=== PATIENT | female | born 1945 | race Caucasian/White ===

== ENCOUNTER → 2022-08-08 10:44 | Outpatient (CLI) | payer MEDICARE, SELFPAY ==
--- NOTE | ~2022-08-08 | XR_ITS ---
Clinical Indication: Cough PA and lateral views of the chest: Comparison: 04/08/2009 Findings: Calcified left upper lobe granuloma noted. The lungs are otherwise clear, without evidence of focal consolidation or pleural effusion. Cardiomediastinal silhouette is unremarkable, aside from cardiac valve replacement postsurgical changes. Bones and soft tissues are unremarkable. Impression: No significant/acute abnormality seen. Status post corrective surgery. Reviewed, dictated and finalized at location M. Impression: No significant/acute abnormality seen. Status post corrective surgery.
== END ==
PROVIDERS: PCP Internal Medicine; Visit Provider Nurse Practitioner
DX: R05.9 Cough, unspecified (principal); R06.02 Shortness of breath; R42 Dizziness and giddiness
CPT/HCPCS: 71046

== ENCOUNTER 2022-08-08 11:02 | Outpatient (CLI) | payer MEDICARE, SELFPAY ==
[2022-08-08 12:47] LABS: Basophils Absolute Auto 0.1 K/mm3 (0.0-0.1); Eosinophils Absolute Auto 0.6 K/mm3 (0-0.3); Eosinophils Percent Auto 4.1 % (0-4.4); Hematocrit 36.8 % (37.0-47.0); Hemoglobin 11.7 g/dL (12.0-15.0); Immature Granulocyte Absolute 0.26 K/mm3 (0.00-0.031); Immature Granulocyte Percent A 1.8 % (0-0.5); Lymphocytes Absolute Auto 2.27 K/mm3 (0.9-3.2); Lymphocytes Percent Auto 15.9 % (18.3-44.2); Mean Corpuscular HGB Conc 31.8 g/dl (32-36); Mean Corpuscular Hemoglobin 30.2 pg (26-34); Mean Corpuscular Volume 94.8 fl (80-100); Mean Platelet Volume 10.8 fl (7.4-10.4); Monocytes Absolute Auto 1.1 K/mm3 (0.1-0.6); Monocytes Percent Auto 7.8 % (2.6-8.5); Neutrophils Absolute Auto 9.9 K/mm3 (1.3-6.7); Neutrophils Percent Auto 69.4 % (45.5-73.1); Platelet Count Result 532 k/mm3 (150-375); Red Blood Count 3.88 M/mm3 (4.2-5.4); Red Cell Distribution Width 13.9 % (11.5-14.5); White Blood Count 14.3 K/mm3 (4.5-10.0)
[2022-08-08 12:52] LABS: Alanine Aminotransferase 26 U/L (6-35); Albumin Level 4.1 g/dL (3.5-5.1); Alkaline Phosphatase 53 U/L (38-126); Anion Gap 6 mmol/L (8-16); Aspartate Amino Transferase 39 U/L (14-36); Bilirubin,Total 0.8 mg/dL (0.2-1.3); Blood Urea Nitrogen 28 mg/dL (7-17); Calcium 9.3 mg/dL (8.4-10.2); Carbon Dioxide 33 mmol/L (22-30); Chloride 97 mmol/L (98-107); Estimated Glomerular Filt Rate 48; Glucose 137 mg/dL (65-110); Potassium 4.3 mmol/L (3.4-5.0); Sodium 136 mmol/L (137-145)
== END 2022-08-08 11:03 | disposition home or self-care (01) ==
LOC: ANHPT 11:05 → ANHGOSHLAB 11:07
PROVIDERS: Nurse Practitioner; PCP Internal Medicine; Visit Provider Internal Medicine
DX: R05.9 Cough, unspecified (principal); R06.02 Shortness of breath
CPT/HCPCS: 36415; 80053; 85025

== ENCOUNTER 2022-08-10 14:54 | Emergency (ER) | payer MEDICARE, SELFPAY ==
[2022-08-10] VITALS (13 sets, daily range): BP systolic 124–146; BP diastolic 60–72; PULSE 60–98; RESP 16–28; TEMP 36.6; O2SAT 90–99
--- NOTE | ~2022-08-10 | XR_ITS ---
EXAMINATION: XR chest 1V portable Exam Date/Time: 08/10/2022 15:20 CDT HISTORY: low o2 Comparison: 08/08/2022. RESULT: Lines, tubes, and devices: Valve replacement. Multiple fractured sternotomy wires, remain in stable position. Cholecystectomy clips. Lungs and pleura: Calcified left upper lung granuloma. Slightly low volumes. Mild scattered intersti tial opacities. No focal consolidation. Cardiomediastinal silhouette: Stable. Other: No acute osseous or upper abdominal finding. IMPRESSION: Low volumes with crowding. Mild interstitial edema. Reviewed, dictated and finalized at location K.
--- NOTE | ~2022-08-10 | CT_ITS ---
EXAMINATION:CT diagnostic chest w con DATE: 08/10/2022 16:42 INDICATION: Cough and congestion. Pneumonia. TECHNIQUE: Computed tomography (CT) of the chest was performed with 75 mL Omnipaque 350 intravenous c ontrast. Automated exposure control and iterative reconstruction technique were employed. The dose-le ngth product (DLP) was 544.70 mGy-cm. COMPARISON: Chest single view 08/10/2022 FINDINGS: There is mild scarring paraspinal right lower lobe. There are mild airspace and groundglass opacities in posterior segment right upper lobe. There are centrilobular nodules and [place]bud opa cities in the lower lobes. Calcified left lung nodules and calcified left hilar lymph nodes are consi stent with old granulomatous disease. There is mild bronchiectasis in right middle lobe. No pleural e ffusion. The heart size is normal. There are changes of aortic valve replacement. No pericardial effu emmy. The central pulmonary arteries are enlarged, consistent with pulmonary arterial hypertension. T here are changes of cholecystectomy. There are bridging endplate osteophytes at multiple levels in th e spine, consistent with diffuse idiopathic skeletal hyperostosis (DISH). There is moderate thoracic spondylosis. IMPRESSION: 1. Mild pneumonia involving the lower lobes and right upper lobe. Reviewed, dictated and finalized at location A.
--- NOTE | ~2022-08-10 | CT_ITS ---
EXAMINATION: CT brain wo con DATE: 08/10/2022 15:52 INDICATION: Dizziness TECHNIQUE: Computed tomography (CT) of the head was performed without intravenous contrast. Sagittal and coronal reconstructions were performed. The mA was adjusted according to patient size. Iterative reconstruction technique was employed. The dose-length product was 605.33 mGy-cm. COMPARISON: None FINDINGS: Small region of encephalomalacia along a gyrus in the anterior right frontal lobe consistent with seq uela of chronic infarct. No acute intracranial hemorrhage, acute infarction or abnormal extra axial f luid collection. Ventricles are normal and symmetric. No mass/mass effect. Minimal right mastoid effu emmy. The orbits and mastoid air cells are normal. Mild mucosal thickening in the right sphenoid and bilateral maxillary sinuses with more prominent mucosal thickening with near complete opacification o f the left maxillary sinus. IMPRESSION: 1. Small old right frontal lobe infarct. No acute intracranial process. 2. Sinus disease. Reviewed, dictated and finalized at location L.
--- NOTE | 2022-08-10 15:09 | ECG_ITS ---
Measurements Intervals [place] Rate: 88 P: 16 FL: 145 QRS: -27 QRSD: 146 T: 34 QT: 374 QTc: 453 Interpretive Statements SINUS RHYTHM RIGHT BUNDLE BRANCH BLOCK BASELINE ARTIFACT- I, III, AVR, AVL, AVF ABNORMAL ECG NO PREVIOUS ECG AVAILABLE FOR COMPARISON Electronically Signed On 08-10-2022 15:40:42 CDT by Rasheed Guerra D.O.
[2022-08-10 15:37] LABS: Basophils Absolute Auto 0.1 K/mm3 (0.0-0.1); Basophils Percent Auto 0.7 % (0.2-1.2); Eosinophils Absolute Auto 0.5 K/mm3 (0-0.3); Eosinophils Percent Auto 3.6 % (0-4.4); Hemoglobin 11.7 g/dL (12.0-15.0); Immature Granulocyte Percent A 0.7 % (0-0.5); Lymphocytes Absolute Auto 2.23 K/mm3 (0.9-3.2); Lymphocytes Percent Auto 16.6 % (18.3-44.2); Mean Corpuscular HGB Conc 32.5 g/dl (32-36); Mean Corpuscular Hemoglobin 30.2 pg (26-34); Mean Platelet Volume 10.3 fl (7.4-10.4); Monocytes Absolute Auto 1.1 K/mm3 (0.1-0.6); Monocytes Percent Auto 8.4 % (2.6-8.5); Neutrophils Absolute Auto 9.4 K/mm3 (1.3-6.7); Platelet Count Result 589 k/mm3 (150-375); Red Blood Count 3.87 M/mm3 (4.2-5.4); Red Cell Distribution Width 13.7 % (11.5-14.5); White Blood Count 13.5 K/mm3 (4.5-10.0)
[2022-08-10 15:42] LABS: INR 3.4; Prothrombin Time 37.7 Seconds (11.1-14.7)
[2022-08-10 15:44] LABS: Partial Thromboplastin Time 83.9 SECONDS (22.3-36.8)
[2022-08-10 15:59] LABS: Alanine Aminotransferase 27 U/L (6-35); Albumin Level 4.2 g/dL (3.5-5.1); Alkaline Phosphatase 45 U/L (38-126); Anion Gap 7 mmol/L (8-16); Aspartate Amino Transferase 38 U/L (14-36); Blood Urea Nitrogen 33 mg/dL (7-17); Calcium 9.4 mg/dL (8.4-10.2); Carbon Dioxide 32 mmol/L (22-30); Chloride 96 mmol/L (98-107); Estimated Glomerular Filt Rate 48; Glucose 109 mg/dL (65-110); Potassium 4.3 mmol/L (3.4-5.0); Sodium 135 mmol/L (137-145)
--- NOTE | 2022-08-10 16:10 | PC.NURSE ---
Dr. Alfredo at bedside to assess pt.
--- NOTE | 2022-08-10 16:32 | ED.DIZZY ---
HPI - Dizziness General Chief Complaint: Dizziness Stated Complaint: DIZZINESS Time Seen by Provider: 08/10/22 15:41 History of Present Illness HPI Narrative: 76-year-old female presented to the emergency department for evaluation of dizziness which she describes as feeling drunk when ambulating. Patient reports over the course of the last week she has had these symptoms. Patient did start antibiotics for a suspected pneumonia approximately 3 days ago. Patient denies any falls or injuries. Patient denies any associated nausea vomiting or diarrhea. Patient does report increased cough and congestion. Patient did have follow-up with her primary care physician today and was told that she had worsening kidney function. Patient was also concerned because she had an abnormal pulse ox while at the primary care physician. Upon arrival to the ED patient's pulse ox is within normal limits Related Data Home Medications Medication Instructions Recorded Confirmed aspirin 81 mg tablet,delayed 81 mg PO DAILY 02/16/21 08/08/22 release (Adult Low Dose Aspirin) Allergies Allergy/AdvReac Type Severity Reaction Status Date / Time No Known Allergies Allergy Mild Verified 08/10/22 14:54 Review of Systems Review of Systems: All systems reviewed & are unremarkable except as noted in HPI and below PMFSH Past Medical History Medical History (Updated 08/11/22 @ 14:08 by Sidney Alfredo MD) Carotid artery stenosis Measles Mixed hyperlipidemia Morbid obesity with BMI of 45.0-49.9, adult Obesity Surgical History Surgical History Hx of knee surgery bilateral 2019 Mechanical heart valve present 09/30/18 Family History Family History Father Acute myocardial infarction Mother Patient's mother is in good health Social History Social History Smoking status: Never smoker Alcohol intake: never Lack of Transportation: No Lack of Food: Never True Current Housing: I Have Housing Concerned About Future Housing: No Difficulty Paying Gas/Electric Bills: No Difficulty Paying for Meds: No Currently Unemployed: No Education: High School Diploma/GED Difficulty w/ Childcare or Family Care: No Exam Narrative: APPEARANCE: Well appearing, no pain, no distress, well-nourished. HEAD: normocephalic, atraumatic. EYES: PERRLA/EOMI, conjunctivae clear. NOSE: Normal no drainage NECK: Supple. No adenopathy, no masses. RESPIRATORY: Airway patent, respirations nonlabored. Clear to auscultation bilaterally, no rales, rhonchi, wheezing. CARDIOVASCULAR: Regular rate and rhythm without murmurs rubs or gallops. ABDOMINAL: Soft, nontender, nondistended, normal bowel sounds MUSCULOSKELETAL: Moves all extremities. Strength/ROM intact, No edema, No calf tenderness. NEURO: Alert. Cranial nerves II through XII intact. Grossly intact SKIN: Warm, dry. Normal Color Course Course Emergency Course: 76-year-old female presented to the emergency department for evaluation of dizziness. Patient was afebrile but does have a leukocytosis of 13.5. Patient's hemoglobin is stable. Patient's CMP is similar to her baseline with no significant WILFREDO. Chest x-ray did show low volume with crowding. CT of the chest was ordered and did show evidence of a pneumonia. Patient is currently taking antibiotics for the pneumonia. After rehydration and meclizine patient states that her dizziness is resolved. Patient was encouraged of close follow-up with her primary care physician. All questions Patient does feel improved with the meclizine. Vital Signs Vital signs: Vital Signs Temperature 97.9 F 08/10/22 14:58 Pulse Rate 88 08/10/22 14:58 Respiratory Rate 18 08/10/22 14:58 Blood Pressure 138/67 08/10/22 14:58 Pulse Oximetry 94 08/10/22 14:58 Oxygen Delivery Room Air
[2022-08-10] MEDS: SODIUM CHLORIDE 0.9% IV 1,000 ML 999 ML IV CONT (17:17)
--- NOTE | 2022-08-10 17:41 | PC.NURSE ---
Ambulatory pulse ox completed. Patient sating at 95% while standing. While walking O2 saturation remained between 93 and 95%. Patient was noted to have more labored breathing while walking but did not become hypoxic. Work of breathing returned to normal when back at rest. made aware.
[2022-08-10] MEDS: MECLIZINE HCL 25 MG TABLET PO (17:48)
--- NOTE | 2022-08-10 19:20 | PC.NURSE ---
Patient report given to DIVINE Egan. All questions answered and care of patient transferred.
== END 2022-08-10 20:17 | disposition home or self-care (01) ==
PROVIDERS: Emergency Provider Emergency Medicine; PCP Internal Medicine
DX: J18.9 Pneumonia, unspecified organism (principal); R42 Dizziness and giddiness; I65.29 Occlusion and stenosis of unspecified carotid artery; E78.2 Mixed hyperlipidemia; E66.01 Morbid (severe) obesity due to excess calories; Z68.41 Body mass index [BMI] 40.0-44.9, adult; Z95.2 Presence of prosthetic heart valve; J32.9 Chronic sinusitis, unspecified; I45.10 Unspecified right bundle-branch block
CPT/HCPCS: 36415; 70450; 71045; 71260; 80053; 85025; 85610; 85730; 93005; 96360; 99284; A9270; J7030; Q9967

== ENCOUNTER → 2022-12-13 12:32 | Outpatient (CLI) | payer MEDICARE, SELFPAY ==
--- NOTE | ~2022-12-13 | XR_ITS ---
EXAMINATION: XR knee LT 3V DATE: 12/13/2022 12:50 INDICATION: Left knee pain TECHNIQUE: Three views of the left knee were obtained. COMPARISON: None. FINDINGS: Alignment is normal. There are changes of knee arthroplasty. There is no joint effusion. T here is prepatellar soft tissue swelling of the knee. IMPRESSION: 1. Prepatellar soft tissue swelling of the knee without acute osseous abnormality. Reviewed, dictated and finalized at location F. IMPRESSION: 1. Prepatellar soft tissue swelling of the knee without acute osseous abnormali ty.
== END ==
PROVIDERS: PCP Clinical Nurse Specialist; Visit Provider Clinical Nurse Specialist
DX: M25.562 Pain in left knee (principal); M79.89 Other specified soft tissue disorders
CPT/HCPCS: 73562

== ENCOUNTER 2022-12-25 10:28 | Emergency (ER) | payer MEDICARE, SELFPAY ==
--- NOTE | ~2022-12-25 | US_ITS ---
EXAMINATION: US venous doppler UE DATE: 12/25/2022 12:32 INDICATION: Recent fall 2 weeks ago. Left arm swelling. TECHNIQUE: Jiménez scale images with and without compression and Doppler images of the left upper extrem ity veins were obtained. COMPARISON: None. FINDINGS: The left internal jugular vein, subclavian vein, axillary vein, brachial veins, basilic vein, cephali c vein, radial vein, and ulnar vein are patent. In the anterior left mid forearm there is a small 4 m m cyst, likely of no clinical significance. IMPRESSION: 1. Patent left upper extremity veins. No evidence of deep venous thrombosis. Reviewed, dictated and finalized at location A.
[2022-12-25 10:34] VITALS: BP 154/58; PULSE 58; RESP 15; TEMP 36.6; O2SAT 96
--- NOTE | 2022-12-25 12:39 | ED.UPPEXIN ---
HPI - Extremity Injury (Upper) General Chief Complaint: Fall Stated Complaint: Fall left arm pain; left knee Time Seen by Provider: 12/25/22 11:17 History of Present Illness HPI narrative: This is a 77-year-old female, with past history of valve replacement on Coumadin, who presents emergency department complaining of left arm mass and swelling. The patient states approximately 2 weeks ago, she fell striking the left arm and left knee, resulting in a large bruise over the arm. She states the bruise appears to be improving, however she has multiple knots in the left arm that are concerning to her for blood clot. This is associated with 1-2/10 dull ache. She has no other complaints at this time. Related Data Home Medications Medication Instructions Recorded Confirmed aspirin 81 mg tablet,delayed 81 mg PO DAILY 02/16/21 12/14/22 release (Adult Low Dose Aspirin) Allergies Allergy/AdvReac Type Severity Reaction Status Date / Time No Known Allergies Allergy Mild Verified 12/25/22 10:43 Review of Systems Review of Systems: CONSTITUTIONAL: Denies fever, chills, or sweats. CARDIOVASCULAR: Denies chest pain, palpitations, or edema. RESPIRATORY: Denies cough or dyspnea. GASTROINTESTINAL: Denies abdominal pain, nausea, vomiting, or diarrhea. GENITOURINARY: Denies dysuria or hematuria. SKIN: Denies rash or itching. MUSCULOSKELETAL: Left arm bruising and swelling denies back pain, joint pain, or myalgia. NEUROLOGIC: Denies headache, numbness, dizziness, or weakness. PSYCHIATRIC: Denies anxiety or depression. [facility] Past Medical History Medical History Carotid artery stenosis Hx of stroke without residual deficits Found on head CT 2022 Measles Mixed hyperlipidemia Morbid obesity with BMI of 45.0-49.9, adult Obesity Surgical History Surgical History Hx of knee surgery bilateral 2019 Mechanical heart valve present 09/30/18 Family History Family History Father Acute myocardial infarction Mother Patient's mother is in good health Social History Social History Smoking status: Never smoker Alcohol intake: never Exam Narrative: GENERAL: Well-developed, well-nourished, and in no acute distress. HEAD: Normocephalic, atraumatic. EYES: PERRLA and EOMI. CHEST: Clear to auscultation. No respiratory distress. No wheezes rales or rhonchi HEART: Regular rate and rhythm. No murmur heard. Normal peripheral pulses. ABDOMEN: Soft, nontender, nondistended, normal active bowel sounds. EXTREMITIES: Palpable, mobile nodules are noted in the anterior aspect of the left forearm, extending from the elbow approximately 10 cm. There is no overlying erythema or induration. Normal range of motion. No edema. SKIN: Warm, dry, no rash. NEURO: Alert and oriented x3. Moving all 4 limbs purposefully. PSYCH: Normal mood and affect. Course Course Emergency Course: 12:42 - Upper extremity US not concerning for DVT. I suspect the masses are evolving hematoma. Will discharge with recommendation follow-up with her primary care doctor. Discussed return and emergency precautions including signs/symptoms of DVT and respiratory distress. The patient voiced understanding and is comfortable with the plan. All questions answered to her satisfaction. Vital Signs Vital signs: Vital Signs Temperature 97.8 F 12/25/22 10:34 Pulse Rate 58 L 12/25/22 10:34 Respiratory Rate 15 12/25/22 10:34 Blood Pressure 154/58 H 12/25/22 10:34 Pulse Oximetry 96 12/25/22 10:34 Oxygen Delivery Room Air 12/25/22 10:34 Temperature 97.8 F 12/25/22 10:34 Pulse Rate 58 L 12/25/22 10:34 Respiratory Rate 15 12/25/22 10:34 Blood Pressure 154/58 H 12/25/22 10:34 Pulse Oximetry 96 12/25/22 10:34 O
== END 2022-12-25 12:49 | disposition home or self-care (01) ==
PROVIDERS: Emergency Provider Preventive Medicine Aerospace Medicine; PCP Clinical Nurse Specialist
DX: S50.12XA Contusion of left forearm, initial encounter (principal); I65.29 Occlusion and stenosis of unspecified carotid artery; E78.2 Mixed hyperlipidemia; E66.01 Morbid (severe) obesity due to excess calories; Z68.41 Body mass index [BMI] 40.0-44.9, adult; Z95.2 Presence of prosthetic heart valve; Z86.73 Personal history of transient ischemic attack (TIA), and cerebral infarction without residual deficits; Z79.82 Long term (current) use of aspirin; Z79.01 Long term (current) use of anticoagulants; W19.XXXA Unspecified fall, initial encounter
CPT/HCPCS: 93971; 99284

== ENCOUNTER 2024-07-11 10:45 | Outpatient (CLI) | payer MEDICARE, SELFPAY ==
--- NOTE | ~2024-07-11 | XR_ITS ---
AP and oblique views of the right ribs, and PA chest radiograph Clinical History: Pain Findings: No rib fracture is seen. Osseous alignment is anatomic. Calcified left lung granulomas are present. Lungs are of otherwise clear, without focal consolidation or pleural effusion. Cardiomediast inal contour is minimally prominent, status post interval placement. Soft tissues are unremarkable. Impression: No rib fracture is seen. No significant pulmonary abnormality. Reviewed, dictated and finalized at location . Impression: No rib fracture is seen. No significant pulmonary abnormality.
== END 2024-07-11 10:46 | disposition home or self-care (01) ==
LOC: GOSHIMG 10:45
PROVIDERS: PCP Clinical Nurse Specialist; Visit Provider Clinical Nurse Specialist
DX: R07.81 Pleurodynia (principal)
CPT/HCPCS: 71101

== ENCOUNTER 2024-07-13 12:46 | Emergency (ER) | payer MEDICARE, SELFPAY ==
--- NOTE | ~2024-07-13 | CT_ITS ---
CLINICAL INDICATION: Erythematous, blistering rash to the right thigh and right anterior lower abdomi nal wall. COMPARISON: None. TECHNIQUE: Multiple contiguous axial images of the abdomen and pelvis were performed without the admi nistration of intravenous contrast The dose-length product (DLP) was 1243.28 mGy-cm. Automated exposure control and iterative reconstruction technique were employed. FINDINGS/OBSERVATIONS: Visualized lower thorax: The bilateral lung bases are clear. The heart is enlarged, without pericardial effusion. Small hiatal hernia is present. Liver: The liver demonstrates homogeneous attenuation and is not enlarged. Gallbladder and biliary system: The gallbladder is surgically absent. Pancreas: Limited evaluation of the pancreas secondary to the lack of intravenous contrast. Spleen: The spleen demonstrates homogeneous attenuation and is not enlarged. Kidneys: The bilateral kidneys are unremarkable, without hydronephrosis or renal calculi. Adrenal glands: Unremarkable. Gastrointestinal tract: Colonic diverticulosis without surrounding inflammatory change. Appendix: The air-filled appendix is of normal caliber (axial series, images 97 through 104). Vasculature: Unremarkable. Lymph nodes: Limited evaluation without intravenous contrast. Pelvic structures: The bladder is only minimally distended, and otherwise unremarkable. The uterus is anteverted and anteflexed, and contains multiple calcifications, likely secondary to pr ior fibroid disease Body wall and musculoskeletal: Induration of the superficial soft tissues, consistent with patient's presenting complaints. Age-appropriate degenerative disease within the lumbar spine. IMPRESSION: No acute intra-abdominal pathology, as detailed above. Reviewed, dictated and finalized at location A.
--- OUTSIDE RECORDS SUMMARY | 2024-07-13 12:49 | XMS_ITS | Encounter Summary ---
Author Organization [facility] Address [address] [place] [address] Care Team Providers Care Tools Administrator Name Role Phone Frankie Holloway MD Unavailable Juan Miguel Brown DO Primary Care Provider Encounter Details Date Type Department Care Team (Late st Contact Info) Description 01/28/2024 Lab Requisition [facility] - DermPath Lab [address] [place] [id number] Dilia Melchor MD [address] [facility] [address] [place] [address] Social History Tobacco Use Types Packs/Day Years Used Date Smoking Tobacco: Never Smokeless Tobacco: Never Alcohol Use Standard Drinks/Week Comments Yes 0 (1 standard drink = 0.6 oz pur e alcohol) rare Sex and Gender Information Value Date Recorded Sex Assigned at Not on file Gender Identity Not on file Sexual Orientation Not on file documented as of this encounter Functional Status Functional Status Response Date of Assess ment Is person deaf or have serious hearing difficult y? No 12/14/2018 Is person blind or have serious difficulty seein g? No 12/14/2018 Does person have serious dif ficulty walking/climbing stairs? No 12/14/2018 Does person have difficulty dressing/bathing? No 12/14/2018 Does person have difficulty doing errands alone? No 12/14/2018 Cognitive Status Response Date of Assessm ent Does person have difficulty concentrating/remembering/making decisions? No 12/14/2018 documented as of this encounter Plan of Treatment Not on file documented as of this encounter Procedures Procedure Name Priority Date/Time Associated Diagnosis Comments DERMATOPATHOLOGY Routine 01/28/2024 10:4 8 AM CDT documented in this encounter Results * DERMATOPATHOLOGY (01/28/2024 10:48 AM CDT) Case Report Dermatopathology Report Case: [id number] Authorizing Provider: Dilia Melchor MD Collected: 01/28/2024 10:48 AM Ordering Location: [facility] - Received: 01/28/2024 04:51 PM DermPath Lab Pathologist: Cathy Mora MD Specimen: Skin, left cheek 12:47 PM CDT DERMATOPATHOLOGY LABORATORY Final Diagnosis Specimen A. 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 The specimen consists of a shave biopsy measuring 5x5x1 mm. Jar 0. 12:47 PM CDT DERMATOPATHOLOGY LABORATORY Microscopic Description Specimen A. SKIN, left cheek: The epidermis shows parakeratosis, full thickness disorderly maturation of keratinocytes, mitoses at different levels, and dyskeratotic cells. 12:47 PM CDT DERMATOPATHOLOGY LABORATORY Disclaimer An external and internal positive and negative controls are appropriate for the histochemical, immunohistochemical and immunofluorescence stain(s) in this case (if any), except where stated explicitly. The performance characteristics of the stain(s) cited in this report were developed and its performance characteristic determined by the Dermatopathology Laboratory at [facility], directed by Dr. Milly Wyatt. These tests need not be, and therefore are not, approved by the [place] Food and Drug Administration. The tests are used for clinical purposes. Billing Codes Specimen Charges Stain Charges 38140 1 4 12:47 PM CDT DERMATOPATHOLOGY LABORATORY Embedded Images 12:47 PM CDT DERMATOPATHOLOGY LABORATORY Pathology/Cytolo gy TISSUE SPECIMEN FROM SKIN / Unknown 01/28/2024 10:48 AM CDT 01/28/2024 4:51 PM CDT Dilia Melchor MD LAB - PATHOLOGY/CYTO LOGY ORDERABLES DERMATOPATHOLOGY LABORATORY [facility] - Department of Dermatology [address] [phone] documented in this encounter Visit Diagnoses Not on filedocumented in this encounter Care Teams Tools Administrator Relationship Specialty [place] [id number] [address] [place] [id number] PCP - General Internal Medicine 01/31/13 [place] [id number] [place] [address] Orthopedic Surgery 01/31/13 documented as of this encounter
--- OUTSIDE RECORDS SUMMARY | 2024-07-13 12:49 | XMS_ITS | Clinical Summary ---
Author Organization [facility] Address [address] [place] [address] Care Team Providers Care Cover Cutter Machine Name Role Phone Frankie Holloway MD Unavailable Juan Miguel Brown DO Primary Care Provider [phone] Source Comments [facility],non-owned Affiliates and Associated Physician Practices is amultiple site organization consisting of ambulatory clinics and hospital sitesin [place], [place], [place] and [place]. This disclosure is being madepursuant to the Care Everywhere program and may not contain all information available regarding this patient. Last updated 17.[facility] Allergies No known active allergies Medications * Be aware that medications may not be up to date on this document. Alwaysverify current medications with the patient. Medication Sig Dispensed Refills Start Date End Date Status atorvastatin (LIPITOR) 80 MG tablet Take 80 mg by mouth once daily Active fenofibrate (TRICOR) 145 MG tablet Take 145 mg by mouth once daily. Active ezetimibe (ZETIA) 10 MG tablet Take 10 mg by mouth once daily. Active amLODIPine (NORVASC) 5 MG tablet Take 7.5 mg by mouth once daily Active furosemide (LASIX) 40 MG tablet Take 40 mg by mouth once daily. Active Potassium Chloride (KLOR-CON 10 PO) Take by mouth once daily Active metoprolol tartrate IR (LOPRESSOR) 25 MG tablet Take 12.5 mg by mouth 2 times daily Active Multiple Vitamins-Minerals (MULTIVITAMIN & MINERAL PO) Take by mouth once daily Active irbesartan (AVAPRO) 75 MG tablet Take 75 mg by mouth once daily Active warfarin (COUMADIN) 2.5 MG tablet Take 2.5 mg by mouth once daily Active hydroCHLOROthiazide (HYDRODIURIL) 25 MG tablet Take 1 tablet by mouth once daily 07/15/2018 Active ASPIRIN 81 PO Take 81 mg by mouth once daily Active acetaminophen (TYLENOL) 500 MG tablet Take 1,000 mg by mouth every 4 hours as needed for Fever or Pain Maximum allowable Acetaminophen amount = 4 Grams (4000 mg) / 24 hours. Active Active Problems Problem Noted Date Diagnosed Date Status post total left knee replacement 08/24/19 Primary osteoarthritis of both knees 05/13/2015 Osteoarthrosis involving lower leg 01/31/2013 Overview (07/03/2015): 2015 IMO Updt Social History Tobacco Use Types Packs/Day Years Used Date Smoking Tobacco: Never Smokeless Tobacco: Never Alcohol Use Standard Drinks/Week Comments Yes 0 (1 standard drink = 0.6 oz pur e alcohol) rare Sex and Gender Information Value Date Recorded Sex Assigned at Not on file Gender Identity Not on file Sexual Orientation Not on file Last Filed Vital Signs Vital Sign Reading Time Taken Comments Blood Pressure 157/81 12/14/2018 8:20 AM CDT Pulse 54 12/14/2018 8:20 AM CDT Temperature 36.4 C (97.5 F) 12/14/2018 8:20 AM CDT Respiratory Rate 16 12/14/2018 8:20 AM CDT Oxygen Saturation 100% 12/14/2018 8:20 AM CDT Inhaled Oxygen Concentration - - Weight 103.1 kg (227 lb 6.4 oz) 12/12/2018 9:25 AM CDT Height 148.6 cm (4' 10.5 ) 12/12/2018 9:25 AM CD T Body Mass Index 46.72 12/12/2018 9:25 AM CDT Plan of Treatment Health Maintenance Due Date Last Done Comments BONE DENSITY TESTING 1945 HEPATITIS C SCREENING 10/11/1964 DTAP/TDAP/TD VACCINES (1 - Tdap) 1965 PNEUMOCOCCAL VACCINE 50+ (1 of 1 - PCV) 1996 ZOSTER VACCINE (1 of 2) 1996 Respiratory Syncytial Virus (RSV) Vaccine Pt: or over 60 yrs (1 - 1-dose 75+ series) 2021 COVID-19 VACCINE ( - 2023-2 5 season) 2023 DEPRESSION SCREENING 04/09/2024 MEDICARE AWV CALENDAR YEAR 2024 INFLUENZA VACCINE (Season Ended) 2024 HEPATITIS B VACCINE Aged Out No longe r eligible based on patient's age to complete this topic HIB VACCINE Aged Out No longer eligi ble based on patient's age to complete this topic HPV VACCINE Aged Out No longer eligi ble based on patient's age to complete this topic MENINGOCOCCAL (Group B) VACC INE SHARED DECISION-MAKING Aged Out No longer eligibl e based on patient's age to complete this topic MENINGOCOCCAL GROUPS A/C/Y/W VACCINE Aged Out No longer eligible b ased on patient's age to complete this topic Medical Devices Implanted Type Area Family Preservation Caseworker Device Identifier Shelf Expiration Date Model / Serial / Lot Nabil Bone [place]-G Hv 40/20 Implanted:Qty: 1 on 07/11/2018 by Frankie Holloway MD at [facility] Left: Knee [employer] 09/11/2019 600-15-100 / / [id number] Cmpnt Fem Kn Lt Cr Cmnt Prm Vngrd Intlk Implanted:Qty: 1 on 07/11/2018 by Frankie Holloway MD at [facility] Left: Knee [employer]au [employer] 03/12/2025 [id number] / / [id number] Tray Tib 63mm Kn Cocr I Beam Implanted:Qty: 1 on 07/11/2018 by Frankie Holloway MD at [facility] Left: Knee [employer]au [employer] 02/11/2028 [id number] / / [id number] Brng [id number] Vngrd Arcm Kn Ant Stab Implanted:Qty: 1 on 07/11/2018 by Frankie Holloway MD at [facility] Left: Knee [employer]au [employer] 04/12/2022 [id number] / / [id number] Cmnt Bone Cblt 40gm Hvisc Strl Implanted:Qty: 1 on 12/12/2018 by Frankie Holloway MD at [facility] Right: Knee [employer] 04/13/2020 600-15-000 / / [id number] Cmpnt Fem Kn Rt Cr Cmnt Prm Vngrd Intlk Implanted:Qty: 1 on 12/12/2018 by Frankie Holloway MD at [facility] Right: Knee [employer] 05/14/2028 [id number] / / [id number] Tray Tib 63mm Kn Cocr I Beam Implanted:Qty: 1 on 12/12/2018 by Frankie Holloway MD at [facility] Right: Knee [employer] 04/13/2028 [id number] / / [id number] Cmpnt Ptlr 28mm 1 Pg Wire Ascnt Arcm Kn Implanted:Qty: 1 on 12/12/2018 by Frankie Holloway MD at [facility] Right: Knee [employer]ua [employer] 11/12/2023 [id number] / / [id number] Brng [id number] Vngrd Arcm Kn Ant Stab Implanted:Qty: 1 on 12/12/2018 by Frankie oHlloway MD at [facility] Right: Knee [employer] 01/11/2022 [id number] / / [id number] Advance Directives * Full Code (Latest Code Status on File) Date Activated Date Inactivated Comments 12/12/2018 5:20 PM 12/14/2018 3:21 PM * Full Code Date Activated Date Inactivated Comments 07/11/2018 4:03 PM 07/14/2018 1:20 PM Care Teams Cover Cutter Machine Relationship Specialty [place] [address] [place] [address] PCP - General Internal Medicine 01/31/13 [place] [id number] [place] [address] Orthopedic Surgery 01/31/13
--- OUTSIDE RECORDS SUMMARY | 2024-07-13 12:49 | XMS_ITS | Referral Summary ---
Author Organization [facility] [place] [address] Address [address] [place] [address] Care Team Providers Care Brinell Tester Name Role Phone Juan Miguel Brown DO Primary Care Provider [phone] Encounters Date Type Department Care Team Description 06/17/2024 Telephone [facility] Diabetes and Endocrinology [address] [place] [address] Peg Eisenberg NP 05/07/2024 10:05 AM [employer] - 05/07/2024 11:59 PM [employer] Hospital Encounter [facility] [address] [facility] [address] [place] [address] Screening mammogram, encounter for Discharge Disposition: Discharge to home or self care 05/05/2024 Telephone [facility] [place] [facility] [place] [address] [address] Brigido Collins MD Test Results 04/25/2024 1:40 PM [employer] [employer] Lab [address] [address] Type 2 diabetes mellitus with hyperglycemia, without long-term current use of insulin (HCC) 04/25/2024 1:00 PM [employer] Office [place] [facility] [place] [facility] [address] [address] Brigido Collins MD Type 2 diabetes mellitus with hyperglycemia, without long-term current use of insulin (HCC) (Primary Dx); Hyperlipidemia associated with type 2 diabetes mellitus (HCC); Hypertension associated with diabetes (HCC) from Last 3 Months Allergies No known active allergies Medications warfarin (COUMADIN) 2.5 mg tablet take 1 tablet (2.5MG) by oral route every day 0 07/05/19 13 Active multivitamin capsule take 1 capsule by oral route every day 0 07/05/19 13 Active furosemide (LASIX) 40 mg tablet take 1 Tablet (40MG) by oral route every day 0 07/05/19 13 Active fenofibrate nanocrystallized (TRICOR) 145 mg tablet take 1 tablet (145MG) by oral route every day 0 07/05/19 13 Active atorvastatin (LIPITOR) 80 mg tablet take 1 tablet (80MG) by oral route every day 0 07/05/19 13 Active aspirin (ASPIRIN LOW DOSE) 81 mg tablet take 1 Tablet (81MG) by oral route every day 0 07/05/19 13 Active potassium chloride ER (KLOR-CON M10) 10 mEq CR tablet take 1 by Oral route every day 0 07/05/19 13 Active ezetimibe (ZETIA) 10 mg tablet take 1 Tablet (10MG) by oral route every day 0 07/05/19 13 Active warfarin (COUMADIN) 1 mg tablet take 1 tablet (1MG) by oral route every day 0 07/05/19 13 Active amLODIPine (NORVASC) 5 mg tablet take 1 1/2 tablet by oral route every day 0 11/28/19 14 Active metoprolol (LOPRESSOR) 25 mg tablet take 1/2 Tablet by oral route 2 times every day 30 Syringe 6 05/22/19 13 Active irbesartan (AVAPRO) 75 mg tabletIndications:H/ O mechanical aortic valve replacement Take 1 tablet (75 mg total) by mouth nightly Active hydroCHLOROthiazide (HYDRODIURIL) 25 mg tabletIndications:H/ O mechanical aortic valve replacement Take 1 tablet (25 mg total) by mouth daily Active cholecalciferol (VITAMIN D-3) 25 mcg (1,000 unit) tablet Take 1 tablet (1,000 Units total) by mouth daily Active escitalopram (LEXAPRO) 10 mg tablet Take 1 tablet (10 mg total) by mouth daily 12/22/19 22 Active potassium chloride ER 10 mEq CR tablet 12/08/19 22 Active warfarin (COUMADIN) 3 mg tablet Take 1 tablet (3 mg total) by mouth daily 11/18/19 Active blood-glucose meter kit Use daily or as directed for monitoring of diabetes 1 kit 02/24/20 Active blood glucose diagnostic (glucose blood) strip Check blood sugar as directed 50 each 11 02/24/20 Active tirzepatide (Mounjaro) 7.5 mg/0.5 mL pen injector Inject 7.5 mg under the skin once a week 2 mL 6 04/25/19 Active metFORMIN (GLUCOPHAGE) 500 mg tablet Take 1 tablet (500 mg total) by mouth 2 (two) times a day with meals 180 tablet 3 04/25/19 25 Active Active Problems Problem Noted Date Diagnosed Date Class 2 severe obesity due t o excess calories with serious comorbidity and body mass index (BMI) of 38.0 to 38.9 in adult 07/09/2023 Assessment & Plan (07/09/2023 11:22 AM CDT): Discussed healthy diet and importance of regular physical activity (20- 30min/day, 150min/wk). Has lost 15# since 02/2023. BMI down 2 points. Taking Mounjaro 5mg weekly Using Nu-Step 4-5 min/day. Staying active. Hyperlipidemia associated with type 2 diabetes cintia santana 08/15/2022 Assessment & Plan (04/25/2024 1:32 PM [employer]): Chronic, stable. Update lipid profile. Continue statin therapy with atorvastatin 80 mg daily Assessment & Plan (11/15/2023 2:27 PM CDT): Chronic problem. Currently taking Atorvastatin 80mg, fenofibrate 145mg & Zetia 10mg. Last lipid panel: 08/15/22 CNU=865, YF=073. Will update labs today. Does not mychart. Verified phone #/address to contact re: results. Assessment & Plan (07/09/2023 11:01 AM CDT): Chronic problem. Currently taking Atorvastatin 80mg, fenofibrate 145mg & Zetia 10mg. Last lipid panel: 08/15/22 KOD=870, DA=399. Assessment & Plan (08/15/2022 11:23 AM CDT): Chronic problem. Currently taking Atorvastatin 80mg, fenofibrate 145mg & Zetia 10mg. Last lipid panel: 08/25/21 LDL=69, BK=460. Will update lipid panel today. Verified phone #/address to contact re: results. Hypertension associated with diabetes 02/23/2022 Assessment & Plan (04/25/2024 1:33 PM [employer]): Chronic, stable. Continue current regimen including Avapro Update GFR and microalbumin Assessment & Plan (11/15/2023 2:26 PM CDT): Chronic problem. Controlled on current Irbesartan 75mg daily, metoprolol 25mg daily, amlodipine 5mg daily, lasix 40mg daily, HCTZ 25mg daily. Assessment & Plan (07/09/2023 11:01 AM CDT): Chronic problem. Controlled on current Irbesartan 75mg daily, metoprolol 25mg daily, amlodipine 5mg daily, lasix 40mg daily, HCTZ 25mg daily. No changes at this time. Assessment & Plan (03/08/2023 2:09 PM [employer]): Chronic, well controlled Update MA and GFR Continue Irbesartan Assessment & Plan (08/15/2022 11:21 AM CDT): Chronic problem. Controlled on current Irbesartan 75mg daily, metoprolol 25mg daily, amlodipine 5mg daily, lasix 40mg daily, HCTZ 25mg daily. No changes at this time. Assessment & Plan (02/23/2022 3:29 PM [employer]): Chronic, well controlled Importance of low salt diet and exercise were discussed Continue current meds Update GFR Update MA Type 2 diabetes mellitus wit h hyperglycemia, without long-term current use of insulin 10/13/2021 Assessment & Plan (04/25/2024 1:32 PM [employer]): Chronic, stable Increase Mounjaro to 7.5 mg weekly since it could help with some more weight loss Importance of diet and exercise was discussed Assessment & Plan (11/15/2023 2:39 PM CDT): Chronic problem. A1c cornell from 5.9% 07/09/23 to now 6.7%. denies any hypoglcyemic events. Current medications: Metformin 500mg twice daily with meals Mounjaro 5mg weekly UTD on all other labs. DM eye exam 07/2023 at [facility]. Letter sent to get copy of report. Strive for regular exercise (30min most days) and diet (get at least 4-5 servings of fruit and veggies daily, avoid processed foods, increase lean protein intake and decrease carb portions as well as fruit juices, regular soda & desserts). Watch carbs and simple sugars. Check the blood sugar: weekly Check the feet daily for skin breakdown and infection. Assessment & Plan (07/09/2023 11:25 AM CDT): Chronic problem. A1c improved from 6.6% 03/08/23 to now 5.9%. denies any hypoglcyemic events. Discussed slowly dropping off evening metformin then morning metformin if BG starting to stay low (denies at this time). Current medications: Metformin 500mg twice daily with meals Mounjaro 5mg weekly UTD on all other labs. UTD DM eye exam (07/27/22). Has appt later this month at the [facility]. Strive for regular exercise (30min most days) and diet (get at least 4-5 servings of fruit and veggies daily, avoid processed foods, increase lean protein intake and decrease carb portions as well as fruit juices, regular soda & desserts). Watch carbs and simple sugars. Check the blood sugar: weekly Check the feet daily for skin breakdown and infection. Assessment & Plan (03/08/2023 2:08 PM [employer]): Hba1c was Lab Results Component Value Date HGBA1C 6.6 03/08/2023 today, indicating adequate DM control Goal Hba1c under 7 and blood glucose level in the 120-160 range was explained Low carb diet and daily aerobic and /or resistant exercise were advised Prevention and treatment of hyypoglcyemia were discussed with the patient Blood glucose monitoring : 1-2 x month Adjustment to medications: Continue metformin Start Kali Assessment & Plan (08/15/2022 11:25 AM CDT): Chronic problem. Controlled on current metformin 500mg bid. Will update lipid panel today. UTD on all other labs. Will send letter to Dr Fred Cordero & [facility] for recent eye exams. Strive for regular exercise (30min most days) and diet (get at least 4-5 servings of fruit and veggies daily, avoid processed foods, increase lean protein intake and decrease carb portions as well as fruit juices, regular soda & desserts). Watch carbs and simple sugars. Check the blood sugar every 2-3 days.. Check the feet daily for skin breakdown and infection. Assessment & Plan (02/23/2022 3:28 PM [employer]): Well controlled Continue metformin Pt to start exercising Not interested in other meds BG monitoring once a week Assessment & Plan (10/13/2021 10:10 AM CDT): Hba1c was Lab Results Component Value Date HGBA1C 6.3 10/13/2021 today, indicating adequate DM control Goal Hba1c and blood glucose explained Diet and exercise were advised . Low carb diet, no more than 45 g of carbs per meal and avoiding refined sugars and rapid absorption carbohydrates Increase intake of lean protein 15 to 20 minutes daily aerobic and or resistant exercise also discussed Blood glucose monitoring : 2 to 3 times per week recommend Adjustment to medications: Continue with metformin 500 mg twice a day before breakfast and the H/O mechanical aortic valve replacement 03/22/20 17 Resolved Problems Problem Noted Date Diagnosed Date Resolved Date Morbid (severe) obesity due to excess calories 02/23/2022 07/09/2023 Assessment & Plan (02/23/2022 3:29 PM [employer]): Diet and exercise were discussed Body mass index 40.0-44.9, adult ([facility]) 02/23/2022 07/09/2023 Dyslipidemia 02/22/2021 07/09/2023 Morbid obesity with BMI of 40.0-44.9, adult 03/22/2017 07/09/2023 Vaginal burning 08/03/2015 07/09/2023 Social History Tobacco Use Types Packs/Day Years Used Date Smoking Tobacco: Never Smokeless Tobacco: Never Alcohol Use Standard Drinks/Week Comments No 0 (1 standard drink = 0.6 oz pur e alcohol) AUDIT-C Answer Date Recorded Q1: How often do you have a drink containing alcohol? Never 04/25/2024 Q2: How many drinks containi ng alcohol do you have on a typical day when you are drinking? Patient does not drink Q3: How often do you have si x or more drinks on one occasion? Never 04/25/2024 PHQ-2 Answer Date Recorded PHQ-2 Total Score (If total score is 3 or more points, staff should administer the PHQ-9) 0 04/25/2024 Comments No Sex and Gender Information Value Date Recorded Sex Assigned at Not on file Legal Sex Female 1:14 AM [employer] Gender Identity Not on file Sexual Orientation Straight 04/25/2024 12 :58 PM [employer] Last Filed Vital Signs Vital Sign Reading Time Taken Comments Blood Pressure 110/66 04/25/2024 1:05 PM [employer] Pulse 82 04/25/2024 1:05 PM [employer] Temperature - - Respiratory Rate 16 04/25/2024 1:05 PM [employer] Oxygen Saturation 93% 03/21/2024 11:13 AM [employer] Inhaled Oxygen Concentration - - Weight 88.6 kg (195 lb 6.4 oz) 04/25/2024 1:05 P M [employer] Height 149.9 cm (4' 11 ) 04/25/2024 1:05 PM [employer] Body Mass Index 39.47 04/25/2024 1:05 PM [employer] Plan of Treatment Not on file Procedures Procedure Name Priority Date/Time Associated Diagnosis Comments SCREENING MAMMOGRAM BILATERAL W REINIER Schedule Routine, Read Routine (OP Routine) 05/07/2024 10:26 AM [employer] Screening mammogram, encounter for EGFR Routine 04/25/2024 1:38 PM [employer] Type 2 diabetes mellitus with hyperglycemia, without long-term current use of insulin (HCC) ALBUMIN CREATININE RATIO, URINE Routine 04/25/2024 1:38 PM [employer] Type 2 diabetes mellitus with hyperglycemia, without long-term current use of insulin (HCC) COMPREHENSIVE METABOLIC PANEL Routine 04/25/2024 1:38 PM [employer] Type 2 diabetes mellitus with hyperglycemia, without long-term current use of insulin (HCC) LIPID PANEL Routine 04/25/2024 1:38 PM [employer] Type 2 diabetes mellitus with hyperglycemia, without long-term current use of insulin (HCC) POCT GLUCOSE Routine 04/25/2024 1:06 PM [employer] Type 2 diabetes mellitus with hyperglycemia, without long-term current use of insulin (HCC) POCT HEMOGLOBIN A1C Routine 04/25/2024 1 :06 PM [employer] Type 2 diabetes mellitus with hyperglycemia, without long-term current use of insulin (HCC) DIABETES EYE EXAM Routine 02/12/2024 7:56 AM [employer] from Last 3 Months or Most Recently Relevant to Health Maintenance Results * Screening Mammogram Bilateral W Reinier (05/07/2024 10:26 AM [employer]) Anatomical Region Laterality Modality Breast Bilateral Mammography Narrative 05/09/2024 2:52 PM [employer] Examination: Screening Mammogram Bilateral W Reinier: 05/07/24 Clinical: Screening mammogram, encounter for. Prior Study Comparisons: Comparison was made to the prior available relevant studies at the time of interpretation. Findings: Screening Mammogram Bilateral W Reinier Bilateral No significant masses, malignant type calcifications, skin thickening, nipple retraction, or significant lymphadenopathy is noted in either breast. Computer Aided Detection was utilized for the interpretation of this study. There are scattered areas of fibroglandular density. The patient will be notified of results by letter. Impression: BI-RADS ATLAS category (overall): 2 - Benign There is no mammographic evidence of malignancy. Routine Screening Mammogram in 1 Yr is recommended for bilateral Overall Assessment: 2 - Benign us Self Screening Mammogram IMG MAMMO PROCEDURES Fi nal Result * (ABNORMAL) eGFR (04/25/2024 1:38 PM [employer]) eGFR 45(L) >=60 mL/min/1. 73 m2 Comment: Interpretive Data Reference Interval Normal >/= 90 mL/min/1.73m2 Mildly decreased* 60 - 89 mL/min/1.73m2 Mildly to moderately decreased 45 - 59 mL/min/1.73m2 Moderately to severely decreased 30 - 44 mL/min/1.73m2 Severely decreased 15 - 29 mL/min/1.73m2 Kidney Failure < 15 mL/min/1.73m2 *Relative to young adult level Estimated glomerular filtration rate is determined by the 2020 CKD-EPI equation recommended by the National Kidney Foundation (A Unifying Approach to GFR Estimation: Recommendations of the NKF-ASK Task Force on Reassessing the Inclusion of Race in Diagnosing Kidney Disease, JASN 2020). The CKD-EPI equation should not be used for patients with unstable renal function and has not been validated in children and those over 70. Current interpretive data was last reviewed 2021. Blood 04/25/2024 1:38 PM [employer] 04/25/2024 7:20 PM [employer] us Brigido Collins MD LAB BLOOD ORDERABLES Final Resul t Performing Organization Address City/[facility] Co de Phone Number ESTELA CLARK [address] [place] [address] * Albumin Creatinine Ratio, Urine (04/25/2024 1:38 PM [employer]) Albumin Ur <12.0 mg/L Comment: Interpretive Data No reference range established. Current interpretive data was last revised 2018. Creatinine Ur 29.8 mg/dL ESTELA CLARK Comment: Interpretive Data No reference range established. Current interpretive data was last revised 2018. Albumin Creatinine Ratio, Ur See Comment 1 - ESTELA CLARK Comment:Unable to calculate Urine 04/25/2024 1:38 PM [employer] 04/25/2024 6:22 PM [employer] us Brigido Collins MD LAB URINE ORDERABLES Final Resul t Performing Organization Address City/[facility]/ZIP Co de Phone Number ESTELA CLARK [address] [facility] [employer] [place], [place] [id number] * (ABNORMAL) Lipid panel (04/25/2024 1:38 PM [employer]) Cholesterol 147 30 - 199 mg/dL Comment: Interpretive Data Ages < or = 19 years Acceptable: <170 mg/dL Borderline high: 170-199 mg/dL High: >or= 200 mg/dL Ages > or = 20 years Desirable: <200 mg/dL Borderline high: 200-239 mg/dL High: >or= 240 mg/dL Literature References: 1. Expert Panel on Integrated Guidelines for Cardiovascular Health and Risk Reduction in Children and Adolescents. Pediatrics 2011;128:S213 2. NCEP Expert Panel. Circulation 2004;110:227 Current Interpretive Data was last revised on 2017. Triglycerides 204(H) <=149 mg/dL ESTELA CLARK Comment: Interpretive Data Ages < or = 9 years Acceptable: <75 mg/dL Borderline high: 75-99 mg/dL High: >or= 100 mg/dL Ages 10 to 20 years Acceptable: <90 mg/dL Borderline high: 90-129 mg/dL High: >or= 130 mg/dL Ages > or = 20 years Desirable: <150 mg/dL Borderline high: 150-199 mg/dL High: 200-499 mg/dL Very high: >or= 499 mg/dL Literature References: 1. Expert Panel on Integrated Guidelines for Cardiovascular Health and Risk Reduction in Children and Adolescents. Pediatrics 2011;128:S213 2. NCEP Expert Panel. Circulation 2004;110:227 Current Interpretive Data was last revised on 2017. HDL 31(L) >=40 mg/dL ESTELA CLARK Comment: Interpretive Data Ages < or = 19 years Acceptable: >45 mg/dL Borderline low: 40-45 mg/dL Low: <40 mg/dL Ages > or = 20 years Desirable: >or= 60 mg/dL Low: <40 mg/dL Literature References: 1. Expert Panel on Integrated Guidelines for Cardiovascular Health and Risk Reduction in Children and Adolescents. Pediatrics 2011;128:S213 2. NCEP Expert Panel. Circulation 2004;110:227 Current Interpretive Data was last revised on 2017. LDL, calculated 81 <=129 mg/dL ESTELA CLARK Comment: Interpretive Data Ages < or = 19 years Acceptable: <110 mg/dL Borderline high: 110-129 mg/dL High: >or= 130 mg/dL Ages > or = 20 years Optimal: <100 mg/dL Near optimal: 100-129 mg/dL Borderline high: 130-159 mg/dL High: >160 mg/dL Calculated using the Darci LDL-C estimating equation. This equation was implemented on 2023. Prior to this date LDL-C was estimated using the Friedewald equation. Literature References: 1. Expert Panel on Integrated Guidelines for Cardiovascular Health and Risk Reduction in Children and Adolescents. Pediatrics 2011;128:S213 2. NCEP Expert Panel. Circulation 2004;110:227 3. Darci Jaeger et al. EMILIA Cardiol. 2019August 07;5(5):540-548. doi: 10.1001/[email or web address].2020.0013 Current Interpretive Data was last revised on 2023. Non-HDL Cholesterol 116 mg/dL [facility] Comment: Interpretive Data Ages < or = 19 years Acceptable: <120 mg/dL Borderline high: 120-144 mg/dL High: >145 mg/dL Ages > or = 20 years When triglycerides are >200 mg/dL, Non-HDL cholesterol is a secondary target of therapy with treatment goals that are 30 mg/dL greater than the LDL cholesterol target. Literature References: 1. Expert Panel on Integrated Guidelines for Cardiovascular Health and Risk Reduction in Children and Adolescents. Pediatrics 2011;128:S213 2. NCEP Expert Panel. Circulation 2004;110:227 Current Interpretive Data was last revised on 2017. Chol/HDL ratio 5 [facility] Blood 04/25/2024 1:38 PM [employer] 04/25/2024 6:22 PM [employer] us Brigido Collins MD LAB BLOOD ORDERABLES Final Resul t ESTELA CLARK [address] Department [place] [address] * (ABNORMAL) Comprehensive metabolic panel (04/25/2024 1:38 PM [employer]) Sodium 139 135 - 145 mmol/L Potassium, pl 4.3 3.3 - 4.9 mmol/L [facility] Chloride 99 97 - 110 mmol/L [facility] CO2 27 22 - 32 mmol/L [facility] Anion gap 13 2 - 15 mmol/L [facility] BUN 36(H) 6 - 25 mg/dL [facility] Creatinine 1.24(H) 0.60 - 1.10 mg/dL [facility] Glucose 106 70 - 199 mg/dL [facility] Comment: Interpretive Data Fasting glucose >/= 126 mg/dl is diagnostic for diabetes. Fasting is defined as no caloric intake for at least 8 hours. Fasting glucose between 100 mg/dl to 125 mg/dl is diagnostic of prediabetes. In a patient with classic symptoms of hyperglycemia or hyperglycemic crisis, a random glucose >/= 200 mg/dl is diagnostic for diabetes. In the absence of unequivocal hyperglycemia, results should be confirmed by repeat testing. The classification and Diagnosis of Diabetes Diabetes Care 2021; 46: S19-S40. Current interpretive data was last revised 2022. Calcium 10.6(H) 8.5 - 10.3 mg/dL [facility] Bilirubin, total 0.4 0.1 - 1.2 mg/dL [facility] Protein, pl 7.6 6.5 - 8.5 g/dL [facility] Albumin 4.5 3.5 - 5.0 g/dL [facility] Alk phos 38(L) 40 - 130 Units/L [facility] ALT 30 7 - 45 Units/L [facility] AST 33 10 - 45 Units/L [facility] Blood 04/25/2024 1:38 PM [employer] 04/25/2024 6:22 PM [employer] us Brigido Collins MD LAB BLOOD ORDERABLES Final Resul t ESTELA [address] Department [place] [address] * (ABNORMAL) POCT hemoglobin A1c (04/25/2024 1:06 PM [employer]) Hemoglobin A1C, POC 6.2 4.0 - 5.6 % Comment:none Capillary blood 04/25/2024 1 :06 PM [employer] us Brigido Collins MD POINT OF CARE TEST ORDERABLES Fi nal Result * POCT glucose (04/25/2024 1:06 PM [employer]) Glucose Blood, POC 111 mg/dL Comment:none Blood 04/25/2024 1:06 PM [employer] Brigido Collins MD POINT OF CARE TEST ORDERABLES Fi nal Result * DIABETES EYE EXAM (02/12/2024 7:56 AM [employer]) Historical Provider HEALTH MAINTENANCE Edited Result - Final from Last 3 Months or Most Recently Relevant to Health Maintenance Insurance [facility] MEDICARE ADVANTAGE [facility] MEDICARE ADVANTAGE [facility] MEDICARE ADVANTAGE [facility] MEDICARE ADVANTAGE Care Teams Brinell Tester Relationship Specialty Start Date End Date Juan Miguel Brown DO PCP - General 02/17/16
--- OUTSIDE RECORDS SUMMARY | 2024-07-13 12:49 | XMS_ITS | Continuity of Care Document ---
Author Organization [facility] Address [address] [place] [address] [address] [place] [address] Phone Care Team Providers Care Supervisor [employer] Name Role Phone Naveen Salcedo Unavailable Unavailable Procedures Procedure Date Office/outpatient Visit, Est Office/outpatient Visit, Est Eye Exam, New Patient Refraction Advance Directives Directive Yes / No Effective Date File Name No Information Encounters Encounter Description Practice Location Reason(s) For Visit Diagnoses Date Provider Providers Copied on Encounter Office/outpat ient Visit, [facility], [address] [place] [address] [address], [place], [place], [id number], [place] tel:[phone] [facility] No Information May-1 9-201 0 Krishnasamy Naveen. [address] [address], [place], [place], [facility], [place]. tel:[phone] Office/outpat ient Visit, [facility], [id number] [place] [address] [address], [place], [place], [id number], [place] tel:[phone] [facility] No Information May-0 8-200 9 Krishnasamy Naveen. [address] [facility] [address], [place], [address], [place]. tel:[phone] [facility], [address], [place], [place], [id number], [place] tel:[phone] [facility] No Information May-0 7-200 8 Krishnasamy Naveen. [address] [facility] [address], [place], [address], [place]. tel:[phone] Family History Family Member Type Diagnosis Age At Onset No Information Payers Payer name Insurance type Covered libertarian ID Authoraviva ramirez(s) [facility] Commercial CI [id number] Social History Type Description Quantity Date Captured Comments Sex Female Smoking Status No Information Chief Complaint And Reason For Visit No Information Reason For Referral Reason For Referral No Information History Of Present Illness Encounter Date Complaint History Of Prese nt Illness No Information Functional Status Date Functional Assessmen t No Information Instructions Date Instruction Additional Infor mation No Information Assessments Type Assessment Date No Information Patient Care Teams Name Effective Dates (start - stop) Status Members No Information
--- OUTSIDE RECORDS SUMMARY | 2024-07-13 12:49 | XMS_ITS | Clinical Summary ---
Author Organization [facility] [address] Address [address] [place] [address] Care Team Providers Care Bun Panner Name Role Phone Juan Miguel Brown DO Primary Care Provider [phone] Allergies No known active allergies Medications warfarin [...] once a week 2 mL 6 04/25/19 25 Active metFORMIN (GLUCOPHAGE) 500 mg tablet Take [...] 08/15/2022 Assessment & Plan (04/25/2024 1:32 PM GO GO DANCER): Chronic, stable. Update lipid profile. Continue statin therapy with atorvastatin 80 mg daily Assessment & Plan (11/15/2023 2:27 PM CDT): Chronic problem. Currently taking Atorvastatin 80mg, fenofibrate 145mg & Zetia 10mg. Last lipid panel: 08/15/22 HKB=331, TG=200. Will update labs today. Does not mychart. Verified phone #/address to contact re: results. Assessment & Plan (07/09/2023 11:01 AM CDT): Chronic problem. Currently taking Atorvastatin 80mg, fenofibrate 145mg & Zetia 10mg. Last lipid panel: 08/15/22 NXB=899, BT=637. Assessment & Plan (08/15/2022 11:23 AM CDT): Chronic problem. Currently taking Atorvastatin 80mg, fenofibrate 145mg & Zetia 10mg. Last lipid panel: 08/25/21 LDL=69, IY=239. Will update lipid panel today. Verified phone #/address to contact re: results. Hypertension associated with diabetes 02/23/2022 Assessment & Plan (04/25/2024 1:33 PM GO GO DANCER): Chronic, stable. Continue current regimen including Avapro [...] time. Assessment & Plan (03/08/2023 2:09 PM GO GO DANCER): Chronic, well controlled Update MA and GFR Continue Irbesartan Assessment & Plan (08/15/2022 11:21 AM CDT): Chronic problem. Controlled on current Irbesartan 75mg daily, metoprolol 25mg daily, amlodipine 5mg daily, lasix 40mg daily, HCTZ 25mg daily. No changes at this time. Assessment & Plan (02/23/2022 3:29 PM GO GO DANCER): Chronic, well controlled Importance of low salt diet and exercise were discussed Continue current meds Update GFR Update MA Type 2 diabetes mellitus wit h hyperglycemia, without long-term current use of insulin 10/13/2021 Assessment & Plan (04/25/2024 1:32 PM GO GO DANCER): Chronic, stable Increase Mounjaro to 7.5 mg [...] labs. DM eye exam 07/2023 at [facility]. Letter sent to get copy of report. [...] appt later this month at the [facility]. Strive for regular exercise (30min most days) [...] infection. Assessment & Plan (03/08/2023 2:08 PM GO GO DANCER): Hba1c was Lab Results Component Value Date [...] infection. Assessment & Plan (02/23/2022 3:28 PM GO GO DANCER): Well controlled Continue metformin Pt to start [...] the H/O mechanical aortic valve replacement 03/22/20 Resolved Problems Problem Noted Date Diagnosed Date Resolved Date Morbid (severe) obesity due to excess calories 02/23/2022 07/09/2023 Assessment & Plan (02/23/2022 3:29 PM GO GO DANCER): Diet and exercise were discussed Body mass index 40.0-44.9, adult ([facility]) 02/23/2022 07/09/2023 Dyslipidemia 02/22/2021 07/09/2023 Morbid obesity with BMI of 40.0-44.9, adult 03/22/2017 07/09/2023 Vaginal burning 08/03/2015 07/09/2023 Encounters Date Type Department Care Team Description 06/17/2024 Telephone [facility] Diabetes and Endocrinology [address] [place] [phone] Peg Eisenberg NP 05/07/2024 10:05 AM GO GO DANCER - 05/07/2024 11:59 PM GO GO DANCER Hospital Encounter [facility] [address] [facility] [address] [place] [phone] Screening mammogram, encounter for Discharge Disposition: Discharge to home or self care 05/05/2024 Telephone [facility] Specialists of [address] [address] Brigido Collins MD Test Results 04/25/2024 1:40 PM GO GO DANCER Lab [address] [address] Type 2 diabetes mellitus with hyperglycemia, without long-term current use of insulin (HCC) 04/25/2024 1:00 PM GO GO DANCER Office Visit [facility] [address] [address] Brigido Collins MD Type 2 diabetes mellitus with hyperglycemia, without long-term current use of insulin (HCC) (Primary Dx); Hyperlipidemia associated with type 2 diabetes mellitus (HCC); Hypertension associated with diabetes (HCC) from Last 3 Months Surgical History Surgery Date Site/Laterality Comments REPLACEMENT TOTAL KNEE BILATERAL CARDIAC VALVE SURGERY Medical History Medical History Date Comments Adiposity Obesity H/O mechanical aortic valve replacement HTN (hypertension) Family History Medical History Relation Name Comments Diabetes Father Relation Name Status Comments Father Social History Tobacco Use Types Packs/Day Years [...] on file Legal Sex Female 1:14 AM GO GO DANCER Gender Identity Not on file Sexual Orientation Straight 04/25/2024 12 :58 PM GO GO DANCER Obstetrics History Para Term AB IAB SAB Ectopic Multiple Livin g Live Births 19 Date Outcome GA Total Labor Labor/2nd/3rd Weight Sex Type Anes PTL Laury A1 A5 Name Clin Last Filed Vital Signs Vital Sign Reading Time Taken Comments Blood Pressure 110/66 04/25/2024 1:05 PM GO GO DANCER Pulse 82 04/25/2024 1:05 PM GO GO DANCER Temperature - - Respiratory Rate 16 04/25/2024 1:05 PM GO GO DANCER Oxygen Saturation 93% 03/21/2024 11:13 AM GO GO DANCER Inhaled Oxygen Concentration - - Weight 88.6 kg (195 lb 6.4 oz) 04/25/2024 1:05 P M GO GO DANCER Height 149.9 cm (4' 11 ) 04/25/2024 1:05 PM GO GO DANCER Body Mass Index 39.47 04/25/2024 1:05 PM GO GO DANCER Plan of Treatment Health Maintenance Due Date Last Done Comments Hepatitis C Screening 1945 Osteoporosis Screening-Bone Density Scan 1945 DTaP/Tdap/Td Vaccine (1 - Tdap) 1957 Hepatitis B Screening 1964 Pneumococcal vaccine 65+ (1 of 2 - PCV) 1965 Zoster Vaccine (1 of 2) 1996 Well Visit 65+ 10/17/2011 Foot Exam 07/08/2024 07/09/2023, 02/07, 10/13/2021 Hemoglobin A1C 10/23/2024 04/25/2024, 08/0 11/2023, 07/09/2023, Additional history exists Influenza Vaccine (Season Ended) 2024 01/27/2017, 03/14/2016, 01/05/2014 Dilated Eye Exam 02/11/2025 02/12/2024, 07/27/2022 Albumin Creatinine Ratio, Urine 04/25/2025 04/25/2024, 03/08/2023, 02/23/2022 Depression Screening 04/25/2025 04/25/2024, 03/08/20 23 Fall Risk Assessment 04/25/2025 04/25/2024, 03/08/20 23 Lipid Panel 04/25/2025 04/25/2024, 08/0 11/2023, 08/15/2022, Additional history exists eGFR 04/25/2025 04/25/2024, 02/09, 02/23/2022 Breast Cancer Screening-Mammogram Discontinued 05/07/2024, 03/13/2023, 03/10/2022, Additional history exists Procedures Procedure Name Priority Date/Time Associated Diagnosis Comments SCREENING MAMMOGRAM BILATERAL W REINIER Schedule Routine, Read Routine (OP Routine) 05/07/2024 10:26 AM GO GO DANCER Screening mammogram, encounter for EGFR Routine 04/25/2024 1:38 PM GO GO DANCER Type 2 diabetes mellitus with hyperglycemia, without long-term current use of insulin (HCC) ALBUMIN CREATININE RATIO, URINE Routine 04/25/2024 1:38 PM GO GO DANCER Type 2 diabetes mellitus with hyperglycemia, without long-term current use of insulin (HCC) COMPREHENSIVE METABOLIC PANEL Routine 04/25/2024 1:38 PM GO GO DANCER Type 2 diabetes mellitus with hyperglycemia, without long-term current use of insulin (HCC) LIPID PANEL Routine 04/25/2024 1:38 PM GO GO DANCER Type 2 diabetes mellitus with hyperglycemia, without long-term current use of insulin (HCC) POCT GLUCOSE Routine 04/25/2024 1:06 PM GO GO DANCER Type 2 diabetes mellitus with hyperglycemia, without long-term current use of insulin (HCC) POCT HEMOGLOBIN A1C Routine 04/25/2024 1 :06 PM GO GO DANCER Type 2 diabetes mellitus with hyperglycemia, without long-term current use of insulin (HCC) DIABETES EYE EXAM Routine 02/12/2024 7:56 AM GO GO DANCER from Last 3 Months or Most Recently Relevant to Health Maintenance Results * Screening Mammogram Bilateral W Reinier (05/07/2024 10:26 AM GO GO DANCER) Anatomical Region Laterality Modality Breast Bilateral Mammography Narrative 05/09/2024 2:52 PM GO GO DANCER Examination: Screening Mammogram Bilateral W Reinier: 05/07/24 [...] Result * (ABNORMAL) eGFR (04/25/2024 1:38 PM GO GO DANCER) eGFR 45(L) >=60 mL/min/1. 73 m2 Comment: [...] last reviewed 2021. Blood 04/25/2024 1:38 PM GO GO DANCER 04/25/2024 7:20 PM GO GO DANCER us Brigido Collins MD LAB BLOOD ORDERABLES Final Resul t Performing Organization Address [facility] Co de Phone Number ESTELA CLARK [address] [place] [address] * Albumin Creatinine Ratio, Urine (04/25/2024 1:38 PM GO GO DANCER) Albumin Ur <12.0 mg/L Comment: Interpretive Data No reference range established. Current interpretive data was last revised 2018. Creatinine Ur 29.8 mg/dL ESTELA CLARK Comment: Interpretive Data No reference range established. Current interpretive data was last revised 2018. Albumin Creatinine Ratio, Ur See Comment - ESTELA CLARK Comment:Unable to calculate Urine 04/25/2024 1:38 PM GO GO DANCER 04/25/2024 6:22 PM GO GO DANCER us Brigido Collins MD LAB URINE ORDERABLES Final Resul t Performing Organization Address [facility] Co de Phone Number ESTELA CLARK [address] [facility] [employer] [place], [place] [id number] * (ABNORMAL) Lipid panel (04/25/2024 1:38 PM GO GO DANCER) Cholesterol 147 30 - 199 mg/dL Comment: [...] 5 CERNER CH Blood 04/25/2024 1:38 PM GO GO DANCER 04/25/2024 6:22 PM GO GO DANCER us Brigido Collins MD LAB BLOOD ORDERABLES Final Resul t ESTELA CLARK [address] Department [place] [address] * (ABNORMAL) Comprehensive metabolic panel (04/25/2024 1:38 PM GO GO DANCER) Sodium 139 135 - 145 mmol/L Potassium, [...] Units/L CERNER CH Blood 04/25/2024 1:38 PM GO GO DANCER 04/25/2024 6:22 PM GO GO DANCER Brigido Collins MD LAB BLOOD ORDERABLES Final Resul t ESTELA [address] Department [place] [address] * (ABNORMAL) POCT hemoglobin A1c (04/25/2024 1:06 PM GO GO DANCER) Hemoglobin A1C, POC 6.2 4.0 - 5.6 % Comment:none Capillary blood 04/25/2024 1 :06 PM GO GO DANCER Brigido Collins MD POINT OF CARE TEST ORDERABLES Fi nal Result * POCT glucose (04/25/2024 1:06 PM GO GO DANCER) Glucose Blood, POC 111 mg/dL Comment:none Blood 04/25/2024 1:06 PM GO GO DANCER Brigido Collins MD POINT OF CARE TEST ORDERABLES Fi nal Result * DIABETES EYE EXAM (02/12/2024 7:56 AM GO GO DANCER) Historical Provider HEALTH MAINTENANCE Edited Result - Final from Last 3 Months or Most Recently Relevant to Health Maintenance Insurance [facility] MEDICARE [facility] Address: [address] [address] [facility] Address: [facility] [address] [place] [address] [facility] MEDICARE [facility] Address: [address] [address] [facility] MEDICARE [facility] Address: [address] [address] Care Teams Bun Panner Relationship Specialty Start Date End Date Juan Miguel Brown DO PCP - General 02/17/16
--- OUTSIDE RECORDS SUMMARY | 2024-07-13 12:49 | XMS_ITS | Encounter Summary ---
Author Organization [facility] Address [address] [place] [address] Care Team Providers Care Adult Literacy Instructor Name Role Phone Frankie Holloway MD Unavailable Juan Miguel Brown DO Primary Care Provider Encounter Details Date Type Department Care Team (Late st Contact Info) Description 02/16/2020 Lab Requisition [facility] [address] [facility], [place] [address] Dilia Melchor MD [address] [facility] [address] [place] [address] Social History Tobacco Use Types Packs/Day Years [...] Priority Date/Time Associated Diagnosis Comments DERMATOPATHOLOGY Routine 02/12/2020 12:0 0 AM TEAM LEADER/RESEARCH PSYCHOLOGIST documented in this encounter Results * DERMATOPATHOLOGY (02/12/2020 12:00 AM TEAM LEADER/RESEARCH PSYCHOLOGIST) Case Report Dermatopathology Report Case: [id number] Authorizing Provider: Dilia Melchor MD Collected: 02/12/2020 12:00 AM Ordering Location: [facility] Lab Received: 02/16/2020 10:49 AM Pathologist: Heide Wyatt MD Specimens: A) - Skin, left cheek B) - Skin, right ankle 0 4:43 PM [facility] DERMATOPATHOLOGY [facility]ORATORY Final Diagnosis Specimen A. SKIN, left cheek: ACTINIC KERATOSIS, LICHENOID (L57.0) Specimen B. SKIN, right ankle: STASIS DERMATITIS (L30.8) DERMAL FIBROSIS (L90.5) 0 4:43 PM [facility] DERMATOPATHOLOGY [facility]ORATORY Clinical History A: R/O AK vs SCC. Manuel Garcia Ii papule. B: R/O DF vs SCC. Manuel Garcia Ii papule. 0 4:43 PM [facility] DERMATOPATHOLOGY [facility]ORATORY Gross Description Specimen A: Received is one formalin filled container labeled with the patient's name and designated left cheek. The specimen consists of a shave measuring [id number]. Jar 0. Specimen B: Received is one formalin filled container labeled with the patient's name and designated right ankle. The specimen consists of a shave measuring 1e5t4wg. Jar 0. 0 4:43 PM [facility] DERMATOPATHOLOGY LABORATORY Microscopic Description Specimen A. SKIN, left cheek: There is focal parakeratosis. The lower half of the epidermis shows disorderly maturation of keratinocytes with nuclear pleomorphism. The dermis shows a band-like, chronic inflammatory infiltrate with occasional apoptotic keratinocytes and some basal vacuolar alteration. Specimen B. SKIN, right ankle: There is focal spongiosis. The dermis shows a sparse, perivascular lymphocytic infiltrate surrounding dilated, thick-walled vessels, which are increased in number. There is focal dermal fibrosis. Tumor is not present in the sections examined. 0 4:43 PM TEAM LEADER/RESEARCH PSYCHOLOGIST DERMATOPATHOLOGY LABORATORY Disclaimer An external and internal positive and negative controls are appropriate for the histochemical, immunohistochemical and immunofluorescence stain(s) in this case (if any), except where stated explicitly. The performance characteristics of the stain(s) cited in this report were developed and its performance characteristic determined by the Dermatopathology Laboratory at [facility], directed by Dr. Milly Wyatt. These tests need not be, and therefore are not, approved by the [place] Food and Drug Administration. The tests are used for clinical purposes. Billing Codes Specimen Charges Stain Charges 44619 97051 1 1 0 4:43 PM TEAM LEADER/RESEARCH PSYCHOLOGIST DERMATOPATHOLOGY LABORATORY Embedded Images 0 4:43 PM TEAM LEADER/RESEARCH PSYCHOLOGIST DERMATOPATHOLOGY LABORATORY Pathology/Cytology TISSUE SPECIMEN FROM SKIN / Unknown 02/12/2020 02/16/2020 10:49 AM TEAM LEADER/RESEARCH PSYCHOLOGIST Miscellaneous samples (specimen) TISSUE SPECIMEN FROM SKIN / Unknown 02/12/2020 02/16/2020 10:49 AM TEAM LEADER/RESEARCH PSYCHOLOGIST Dilia Melchor MD LAB - PATHOLOGY/CYTO LOGY ORDERABLES DERMATOPATHOLOGY LABORATORY [facility] - Department of Dermatology [facility] Specialized Medicine [address] [place] [address], [address] [phone] documented in this encounter Visit Diagnoses Not on filedocumented in this encounter Care Teams Adult Literacy Instructor Relationship Specialty [place] [address] [place] [address] PCP - General Internal Medicine 01/31/13 [place] [address] [place] [address] Orthopedic Surgery 01/31/13 documented as of this encounter
[2024-07-13 12:57] VITALS: BP 143/76; PULSE 107; RESP 20; TEMP 36.7; O2SAT 95
--- OUTSIDE RECORDS SUMMARY | 2024-07-13 14:13 | XMS_ITS | Continuity of Care Document ---
Author Organization [facility] Address [address] [place] [address] [address] [place] [address] Phone Care Team Providers Care Admissions Assistant Name Role Phone Naveen Salcedo Unavailable Unavailable Procedures Procedure Date Office/outpatient Visit, Est Office/outpatient Visit, Est Eye Exam, New Patient Refraction Advance Directives Directive Yes / No Effective Date File Name No Information Encounters Encounter Description Practice Location Reason(s) For Visit Diagnoses Date Provider Providers Copied on Encounter Office/outpat ient Visit, [facility], [address] [place] [address] [address], [place], [place], [id number], [place] tel:[phone] SEC [facility] No Information May-1 9-201 0 Krishnasamy Naveen. [address] [address], [place], [place], [facility], [place]. tel:[phone] Office/outpat ient Visit, [facility], [address] [place] [address] [address], [place], [place], [id number], [place] tel:[phone] SEC [facility] No Information May-0 8-200 9 Krishnasamy Naveen. [address] [facility] [address], [place], [address], [place]. tel:[phone] [facility], [address], [place], [place], [id number], [place] tel:[phone] SEC [facility] No Information May-0 7-200 8 Krishnasamy Naveen. [address] [facility] [address], [place], [address], [place]. tel:[phone] Family History Family Member Type Diagnosis Age At Onset No Information Payers Payer name Insurance type Covered constitution party ID Authoraviva ramirez(s) [facility] Commercial CI [id number] Social History Type Description Quantity Date Captured [...]
--- OUTSIDE RECORDS SUMMARY | 2024-07-13 14:13 | XMS_ITS | Clinical Summary ---
Author Organization [facility] Address [address] [facility] [place] [address] Care Team Providers Care Cane Pusher Name Role Phone Frankie Holloway MD Unavailable Juan Miguel Brown DO Primary Care Provider [phone] Source Comments [facility],non-owned Affiliates and Associated Physician Practices is amultiple site organization consisting of ambulatory clinics and hospital sitesin [place], [place], [place] and [place]. This disclosure is being madepursuant to the Care Everywhere program and may not contain all information available regarding this patient. Last updated 17.[facility] Allergies No known active allergies Medications * [...] this topic Medical Devices Implanted Type Area Or Nurse Manager Device Identifier Shelf Expiration Date Model / Serial / Lot Nabil Bone [place]-G Hv 40/20 Implanted:Qty: 1 on 07/11/2018 by Frankie Holloway MD at [facility] Left: Knee [employer] 09/11/2019 600-15-100 / / [id number] Cmpnt Fem Kn Lt Cr Cmnt Prm Vngrd Intlk Implanted:Qty: 1 on 07/11/2018 by Frankie Holloway MD at [facility] Left: Knee [employer] 03/12/2025 [id number] / / [id number] Tray Tib 63mm Kn Cocr I Beam Implanted:Qty: 1 on 07/11/2018 by Frankie Holloway MD at [facility] Left: Knee [employer] 02/11/2028 [id number] / / [id number] Brng 44pnv75oy Vngrd Arcm Kn Ant Stab Implanted:Qty: 1 on 07/11/2018 by Frankie Holloway MD at [facility] Left: Knee [employer] 04/12/2022 [id number] / / [id number] Cmnt Bone Cblt 40gm Hvisc Strl Implanted:Qty: 1 on 12/12/2018 by Frankie Holloway MD at [facility] Right: Knee [employer] 04/13/2020 600-15-000 / / [id number] Cmpnt Fem Kn Rt Cr Cmnt Prm Vngrd Intlk Implanted:Qty: 1 on 12/12/2018 by Frankie Holloway MD at [facility] Right: Knee [employer] 05/14/2028 [id number] / / [id number] Tray Tib 63mm Kn Cocr I Beam Implanted:Qty: 1 on 12/12/2018 by Frankie Holloway MD at [facility] Right: Knee [employer] 04/13/2028 [id number] / / [id number] Cmpnt Ptlr 28mm 1 Pg Wire Ascnt Arcm Kn Implanted:Qty: 1 on 12/12/2018 by Frankie Holloway MD at [facility] Right: Knee [employer] 11/12/2023 [id number] / / [id number] Brng 50kgd44iu Vngrd Arcm Kn Ant Stab Implanted:Qty: 1 on 12/12/2018 by Frankie Holloway MD at [facility] Right: Knee [employer] 01/11/2022 [id number] / / [id number] Advance Directives * Full Code (Latest Code Status on File) Date Activated Date Inactivated Comments 12/12/2018 5:20 PM 12/14/2018 3:21 PM * Full Code Date Activated Date Inactivated Comments 07/11/2018 4:03 PM 07/14/2018 1:20 PM Care Teams Cane Pusher Relationship Specialty Start [place] [address] [place] [address] PCP - General Internal Medicine 01/31/13 [place] [address] [place] [address] Orthopedic Surgery 01/31/13
--- OUTSIDE RECORDS SUMMARY | 2024-07-13 14:13 | XMS_ITS | Encounter Summary ---
Author Organization [facility] Address [address] [place] [address] Care Team Providers Care Crew Person Name Role Phone Frankie Holloway MD Unavailable Juan Miguel Brown DO Primary Care Provider Encounter Details Date Type Department Care Team (Late st Contact Info) Description 02/16/2020 Lab Requisition [facility] [address] [facility], [place] [address] Dilia Melchor MD [address] [place] [address] Social History Tobacco Use Types Packs/Day Years [...] Comments DERMATOPATHOLOGY Routine 02/12/2020 12:0 0 AM CHILDREN'S AUTHOR documented in this encounter Results * DERMATOPATHOLOGY (02/12/2020 12:00 AM CHILDREN'S AUTHOR) Case Report Dermatopathology Report Case: [id number] Authorizing Provider: Dilia Melchor MD Collected: 02/12/2020 12:00 AM Ordering Location: [facility] Lab Received: 02/16/2020 10:49 AM Pathologist: Heide Wyatt MD Specimens: A) - Skin, left cheek B) - Skin, right ankle 0 4:43 PM [facility] DERMATOPATHOLOGY LABORATORY Final Diagnosis Specimen A. SKIN, left cheek: ACTINIC KERATOSIS, LICHENOID (L57.0) Specimen B. SKIN, right ankle: STASIS DERMATITIS (L30.8) DERMAL FIBROSIS (L90.5) 0 4:43 PM [facility] DERMATOPATHOLOGY LABORATORY Clinical History A: R/O AK vs SCC. Tappen papule. B: R/O DF vs SCC. Tappen papule. 0 4:43 PM [facility] DERMATOPATHOLOGY LABORATORY Gross Description Specimen A: Received is one formalin filled container labeled with the patient's name and designated left cheek. The specimen consists of a shave measuring [id number]. Jar 0. Specimen B: Received is one formalin filled container labeled with the patient's name and designated right ankle. The specimen consists of a shave measuring [id number]. Jar 0. 0 4:43 PM [facility] DERMATOPATHOLOGY LABORATORY Microscopic Description Specimen A. SKIN, [...] in the sections examined. 0 4:43 PM [facility] AUTHOR DERMATOPATHOLOGY LABORATORY Disclaimer An external and internal positive and negative controls are appropriate for the histochemical, immunohistochemical and immunofluorescence stain(s) in this case (if any), except where stated explicitly. The performance characteristics of the stain(s) cited in this report were developed and its performance characteristic determined by the Dermatopathology Laboratory at [facility], directed by Dr. Milly Wyatt. These tests need not be, and therefore are not, approved by the [place] Food and Drug Administration. The tests are used for clinical purposes. Billing Codes Specimen Charges Stain Charges 54401 16540 1 1 0 4:43 PM [facility] DERMATOPATHOLOGY LABORATORY Embedded Images 0 4:43 PM [facility] AUTHOR DERMATOPATHOLOGY LABORATORY Pathology/Cytology TISSUE SPECIMEN FROM SKIN / Unknown 02/12/2020 02/16/2020 10:49 AM CHILDREN'S AUTHOR Miscellaneous samples (specimen) TISSUE SPECIMEN FROM SKIN / Unknown 02/12/2020 02/16/2020 10:49 AM CHILDREN'S AUTHOR Dilia Melchor MD LAB - PATHOLOGY/CYTO LOGY ORDERABLES DERMATOPATHOLOGY LABORATORY [facility] - Department of Dermatology [facility] Specialized Medicine [address] [place] [address], [address] [phone] documented in this encounter Visit Diagnoses Not on filedocumented in this encounter Care Teams Crew Person Relationship Specialty [place] [address] [place] [address] PCP - General Internal Medicine 01/31/13 [place] [address] [place] [address] Orthopedic Surgery 01/31/13 documented as of this encounter
--- OUTSIDE RECORDS SUMMARY | 2024-07-13 14:13 | XMS_ITS | Clinical Summary ---
Author Organization [facility] [address] Address [address] [place] [address] Care Team Providers Care Ship Purser Name Role Phone Juan Miguel Brown DO Primary Care Provider +1- [phone] Allergies No known active allergies Medications warfarin [...] 08/15/2022 Assessment & Plan (04/25/2024 1:32 PM CHIEF EXECUTIVE OFFICER): Chronic, stable. Update lipid profile. Continue statin therapy with atorvastatin 80 mg daily Assessment & Plan (11/15/2023 2:27 PM CDT): Chronic problem. Currently taking Atorvastatin 80mg, fenofibrate 145mg & Zetia 10mg. Last lipid panel: 08/15/22 UEU=109, OZ=597. Will update labs today. Does not mychart. Verified phone #/address to contact re: results. Assessment & Plan (07/09/2023 11:01 AM CDT): Chronic problem. Currently taking Atorvastatin 80mg, fenofibrate 145mg & Zetia 10mg. Last lipid panel: 08/15/22 UOQ=346, KU=563. Assessment & Plan (08/15/2022 11:23 AM CDT): Chronic problem. Currently taking Atorvastatin 80mg, fenofibrate 145mg & Zetia 10mg. Last lipid panel: 08/25/21 LDL=69, TW=700. Will update lipid panel today. Verified phone #/address to contact re: results. Hypertension associated with diabetes 02/23/2022 Assessment & Plan (04/25/2024 1:33 PM CHIEF EXECUTIVE OFFICER): Chronic, stable. Continue current regimen including Avapro [...] time. Assessment & Plan (03/08/2023 2:09 PM CHIEF EXECUTIVE OFFICER): Chronic, well controlled Update MA and GFR Continue Irbesartan Assessment & Plan (08/15/2022 11:21 AM CDT): Chronic problem. Controlled on current Irbesartan 75mg daily, metoprolol 25mg daily, amlodipine 5mg daily, lasix 40mg daily, HCTZ 25mg daily. No changes at this time. Assessment & Plan (02/23/2022 3:29 PM CHIEF EXECUTIVE OFFICER): Chronic, well controlled Importance of low salt diet and exercise were discussed Continue current meds Update GFR Update MA Type 2 diabetes mellitus wit h hyperglycemia, without long-term current use of insulin 10/13/2021 Assessment & Plan (04/25/2024 1:32 PM CHIEF EXECUTIVE OFFICER): Chronic, stable Increase Mounjaro to 7.5 mg [...] labs. DM eye exam 07/2023 at [facility]. Letter sent to get copy of report. [...] appt later this month at the [facility]. Strive for regular exercise (30min most days) [...] infection. Assessment & Plan (03/08/2023 2:08 PM CHIEF EXECUTIVE OFFICER): Hba1c was Lab Results Component Value Date [...] infection. Assessment & Plan (02/23/2022 3:28 PM CHIEF EXECUTIVE OFFICER): Well controlled Continue metformin Pt to start [...] 07/09/2023 Assessment & Plan (02/23/2022 3:29 PM CHIEF EXECUTIVE OFFICER): Diet and exercise were discussed Body mass index 40.0-44.9, adult ([facility]) 02/23/2022 07/09/2023 Dyslipidemia 02/22/2021 07/09/2023 Morbid obesity with BMI of 40.0-44.9, adult 03/22/2017 07/09/2023 Vaginal burning 08/03/2015 07/09/2023 Encounters Date Type Department Care Team Description 06/17/2024 Telephone [facility] Diabetes and Endocrinology [address] [place] [address] Peg Eisenberg NP 05/07/2024 10:05 AM CHIEF EXECUTIVE OFFICER - 05/07/2024 11:59 PM CHIEF EXECUTIVE OFFICER Hospital Encounter [facility] - Imaging [address] [facility] [address] [place] [address] Screening mammogram, encounter for Discharge Disposition: Discharge to home or self care 05/05/2024 Telephone [facility] [address] [address] Brigido Collins MD Test Results 04/25/2024 1:40 PM CHIEF EXECUTIVE OFFICER Lab [address] [address] Type 2 diabetes mellitus with hyperglycemia, without long-term current use of insulin (HCC) 04/25/2024 1:00 PM CHIEF EXECUTIVE OFFICER Office Visit [facility] [address] [address] Brigido Collins MD Type 2 [...] on file Legal Sex Female 1:14 AM CHIEF EXECUTIVE OFFICER Gender Identity Not on file Sexual Orientation Straight 04/25/2024 12 :58 PM CHIEF EXECUTIVE OFFICER Obstetrics History Para Term AB IAB SAB Ectopic Multiple Livin g Live Births 19 Date Outcome GA Total Labor Labor/2nd/3rd Weight Sex Type Anes PTL Laury A1 A5 Name Clin Last Filed Vital Signs Vital Sign Reading Time Taken Comments Blood Pressure 110/66 04/25/2024 1:05 PM CHIEF EXECUTIVE OFFICER Pulse 82 04/25/2024 1:05 PM CHIEF EXECUTIVE OFFICER Temperature - - Respiratory Rate 16 04/25/2024 1:05 PM CHIEF EXECUTIVE OFFICER Oxygen Saturation 93% 03/21/2024 11:13 AM CHIEF EXECUTIVE OFFICER Inhaled Oxygen Concentration - - Weight 88.6 kg (195 lb 6.4 oz) 04/25/2024 1:05 P M CHIEF EXECUTIVE OFFICER Height 149.9 cm (4' 11 ) 04/25/2024 1:05 PM CHIEF EXECUTIVE OFFICER Body Mass Index 39.47 04/25/2024 1:05 PM CHIEF EXECUTIVE OFFICER Plan of Treatment Health Maintenance Due Date [...] Read Routine (OP Routine) 05/07/2024 10:26 AM CHIEF EXECUTIVE OFFICER Screening mammogram, encounter for EGFR Routine 04/25/2024 1:38 PM CHIEF EXECUTIVE OFFICER Type 2 diabetes mellitus with hyperglycemia, without long-term current use of insulin (HCC) ALBUMIN CREATININE RATIO, URINE Routine 04/25/2024 1:38 PM CHIEF EXECUTIVE OFFICER Type 2 diabetes mellitus with hyperglycemia, without long-term current use of insulin (HCC) COMPREHENSIVE METABOLIC PANEL Routine 04/25/2024 1:38 PM CHIEF EXECUTIVE OFFICER Type 2 diabetes mellitus with hyperglycemia, without long-term current use of insulin (HCC) LIPID PANEL Routine 04/25/2024 1:38 PM CHIEF EXECUTIVE OFFICER Type 2 diabetes mellitus with hyperglycemia, without long-term current use of insulin (HCC) POCT GLUCOSE Routine 04/25/2024 1:06 PM CHIEF EXECUTIVE OFFICER Type 2 diabetes mellitus with hyperglycemia, without long-term current use of insulin (HCC) POCT HEMOGLOBIN A1C Routine 04/25/2024 1 :06 PM CHIEF EXECUTIVE OFFICER Type 2 diabetes mellitus with hyperglycemia, without long-term current use of insulin (HCC) DIABETES EYE EXAM Routine 02/12/2024 7:56 AM CHIEF EXECUTIVE OFFICER from Last 3 Months or Most Recently Relevant to Health Maintenance Results * Screening Mammogram Bilateral W Reinier (05/07/2024 10:26 AM CHIEF EXECUTIVE OFFICER) Anatomical Region Laterality Modality Breast Bilateral Mammography Narrative 05/09/2024 2:52 PM CHIEF EXECUTIVE OFFICER Examination: Screening Mammogram Bilateral W Reinier: 05/07/24 [...] Result * (ABNORMAL) eGFR (04/25/2024 1:38 PM CHIEF EXECUTIVE OFFICER) eGFR 45(L) >=60 mL/min/1. 73 m2 Comment: [...] last reviewed 2021. Blood 04/25/2024 1:38 PM CHIEF EXECUTIVE OFFICER 04/25/2024 7:20 PM CHIEF EXECUTIVE OFFICER us Brigido Collins MD LAB BLOOD ORDERABLES Final Resul t Performing Organization Address [facility] Co de Phone Number ESTELA CLARK [address] [place] [address] * Albumin Creatinine Ratio, Urine (04/25/2024 1:38 PM CHIEF EXECUTIVE OFFICER) Albumin Ur <12.0 mg/L Comment: Interpretive Data No reference range established. Current interpretive data was last revised 2018. Creatinine Ur 29.8 mg/dL ESTELA CLARK Comment: Interpretive Data No reference range established. Current interpretive data was last revised 2018. Albumin Creatinine Ratio, Ur See Comment - ESTELA CLARK Comment:Unable to calculate Urine 04/25/2024 1:38 PM CHIEF EXECUTIVE OFFICER 04/25/2024 6:22 PM CHIEF EXECUTIVE OFFICER us Brigido Collins MD LAB URINE ORDERABLES Final Resul t Performing Organization Address [facility] Co de Phone Number ESTELA CLARK [address] [facility] [place], [place] [id number] * (ABNORMAL) Lipid panel (04/25/2024 1:38 PM CHIEF EXECUTIVE OFFICER) Cholesterol 147 30 - 199 mg/dL Comment: [...] 5 CERNER CH Blood 04/25/2024 1:38 PM CHIEF EXECUTIVE OFFICER 04/25/2024 6:22 PM CHIEF EXECUTIVE OFFICER us Brigido Collins MD LAB BLOOD ORDERABLES Final Resul t ESTELA CLARK [address] Department [place] [address] * (ABNORMAL) Comprehensive metabolic panel (04/25/2024 1:38 PM CHIEF EXECUTIVE OFFICER) Sodium 139 135 - 145 mmol/L Potassium, [...] Units/L CERNER CH Blood 04/25/2024 1:38 PM CHIEF EXECUTIVE OFFICER 04/25/2024 6:22 PM CHIEF EXECUTIVE OFFICER Brigido Collins MD LAB BLOOD ORDERABLES Final Resul t ESTELA [address] Department [place] [address] * (ABNORMAL) POCT hemoglobin A1c (04/25/2024 1:06 PM CHIEF EXECUTIVE OFFICER) Hemoglobin A1C, POC 6.2 4.0 - 5.6 % Comment:none Capillary blood 04/25/2024 1 :06 PM CHIEF EXECUTIVE OFFICER Brigido Collins MD POINT OF CARE TEST ORDERABLES Fi nal Result * POCT glucose (04/25/2024 1:06 PM CHIEF EXECUTIVE OFFICER) Glucose Blood, POC 111 mg/dL Comment:none Blood 04/25/2024 1:06 PM CHIEF EXECUTIVE OFFICER Brigido Collins MD POINT OF CARE TEST ORDERABLES Fi nal Result * DIABETES EYE EXAM (02/12/2024 7:56 AM CHIEF EXECUTIVE OFFICER) Historical Provider HEALTH MAINTENANCE Edited Result - Final from Last 3 Months or Most Recently Relevant to Health Maintenance Insurance [facility] MEDICARE ADVANTAGE [facility] MED[employer]ARE ADVANTAGE [facility] MED[employer] ADVANTAGE [employer] MEDIC[employer] ADVANTAGE Care Teams Ship Purser Relationship Specialty Start Date End Date Juan Miguel Brown DO PCP - General 02/17/16
--- OUTSIDE RECORDS SUMMARY | 2024-07-13 14:13 | XMS_ITS | Referral Summary ---
Author Organization [facility] [address] Address [address] [place] [address] Care Team Providers Care Clinical Laboratory Service Teacher Name Role Phone Juan Miguel Brown DO Primary Care Provider +1- [phone] Encounters Date Type Department Care Team Description 06/17/2024 Telephone [facility] Diabetes and Endocrinology [address] [place] [address] Peg Eisenberg NP 05/07/2024 10:05 AM SURGICAL CONSULTANT - 05/07/2024 11:59 PM SURGICAL CONSULTANT Hospital Encounter [facility] - Imaging [address] [facility] [address] [place] [address] Screening mammogram, encounter for Discharge Disposition: Discharge to home or self care 05/05/2024 Telephone [facility] of [address] [address] Brigido Collins MD Test Results 04/25/2024 1:40 PM SURGICAL CONSULTANT Lab [address] [address] Type 2 diabetes mellitus with hyperglycemia, without long-term current use of insulin (HCC) 04/25/2024 1:00 PM SURGICAL CONSULTANT Office Visit [facility] of [address] [address] Brigido Collins MD Type 2 [...] 08/15/2022 Assessment & Plan (04/25/2024 1:32 PM SURGICAL CONSULTANT): Chronic, stable. Update lipid profile. Continue statin therapy with atorvastatin 80 mg daily Assessment & Plan (11/15/2023 2:27 PM CDT): Chronic problem. Currently taking Atorvastatin 80mg, fenofibrate 145mg & Zetia 10mg. Last lipid panel: 08/15/22 UIW=552, TN=171. Will update labs today. Does not mychart. Verified phone #/address to contact re: results. Assessment & Plan (07/09/2023 11:01 AM CDT): Chronic problem. Currently taking Atorvastatin 80mg, fenofibrate 145mg & Zetia 10mg. Last lipid panel: 08/15/22 GWT=849, TU=361. Assessment & Plan (08/15/2022 11:23 AM CDT): Chronic problem. Currently taking Atorvastatin 80mg, fenofibrate 145mg & Zetia 10mg. Last lipid panel: 08/25/21 LDL=69, KC=846. Will update lipid panel today. Verified phone #/address to contact re: results. Hypertension associated with diabetes 02/23/2022 Assessment & Plan (04/25/2024 1:33 PM SURGICAL CONSULTANT): Chronic, stable. Continue current regimen including Avapro [...] time. Assessment & Plan (03/08/2023 2:09 PM SURGICAL CONSULTANT): Chronic, well controlled Update MA and GFR Continue Irbesartan Assessment & Plan (08/15/2022 11:21 AM CDT): Chronic problem. Controlled on current Irbesartan 75mg daily, metoprolol 25mg daily, amlodipine 5mg daily, lasix 40mg daily, HCTZ 25mg daily. No changes at this time. Assessment & Plan (02/23/2022 3:29 PM SURGICAL CONSULTANT): Chronic, well controlled Importance of low salt diet and exercise were discussed Continue current meds Update GFR Update MA Type 2 diabetes mellitus wit h hyperglycemia, without long-term current use of insulin 10/13/2021 Assessment & Plan (04/25/2024 1:32 PM SURGICAL CONSULTANT): Chronic, stable Increase Mounjaro to 7.5 mg [...] labs. DM eye exam 07/2023 at [facility]. Letter sent to get copy of report. [...] appt later this month at the [facility]. Strive for regular exercise (30min most days) [...] infection. Assessment & Plan (03/08/2023 2:08 PM SURGICAL CONSULTANT): Hba1c was Lab Results Component Value Date [...] infection. Assessment & Plan (02/23/2022 3:28 PM SURGICAL CONSULTANT): Well controlled Continue metformin Pt to start [...] 07/09/2023 Assessment & Plan (02/23/2022 3:29 PM SURGICAL CONSULTANT): Diet and exercise were discussed Body mass index 40.0-44.9, adult ([facility]) 02/23/2022 07/09/2023 Dyslipidemia 02/22/2021 07/09/2023 [...] on file Legal Sex Female 1:14 AM SURGICAL CONSULTANT Gender Identity Not on file Sexual Orientation Straight 04/25/2024 12 :58 PM SURGICAL CONSULTANT Last Filed Vital Signs Vital Sign Reading Time Taken Comments Blood Pressure 110/66 04/25/2024 1:05 PM SURGICAL CONSULTANT Pulse 82 04/25/2024 1:05 PM SURGICAL CONSULTANT Temperature - - Respiratory Rate 16 04/25/2024 1:05 PM SURGICAL CONSULTANT Oxygen Saturation 93% 03/21/2024 11:13 AM SURGICAL CONSULTANT Inhaled Oxygen Concentration - - Weight 88.6 kg (195 lb 6.4 oz) 04/25/2024 1:05 P M SURGICAL CONSULTANT Height 149.9 cm (4' 11 ) 04/25/2024 1:05 PM SURGICAL CONSULTANT Body Mass Index 39.47 04/25/2024 1:05 PM SURGICAL CONSULTANT Plan of Treatment Not on file Procedures Procedure Name Priority Date/Time Associated Diagnosis Comments SCREENING MAMMOGRAM BILATERAL W REINIER Schedule Routine, Read Routine (OP Routine) 05/07/2024 10:26 AM SURGICAL CONSULTANT Screening mammogram, encounter for EGFR Routine 04/25/2024 1:38 PM SURGICAL CONSULTANT Type 2 diabetes mellitus with hyperglycemia, without long-term current use of insulin (HCC) ALBUMIN CREATININE RATIO, URINE Routine 04/25/2024 1:38 PM SURGICAL CONSULTANT Type 2 diabetes mellitus with hyperglycemia, without long-term current use of insulin (HCC) COMPREHENSIVE METABOLIC PANEL Routine 04/25/2024 1:38 PM SURGICAL CONSULTANT Type 2 diabetes mellitus with hyperglycemia, without long-term current use of insulin (HCC) LIPID PANEL Routine 04/25/2024 1:38 PM SURGICAL CONSULTANT Type 2 diabetes mellitus with hyperglycemia, without long-term current use of insulin (HCC) POCT GLUCOSE Routine 04/25/2024 1:06 PM SURGICAL CONSULTANT Type 2 diabetes mellitus with hyperglycemia, without long-term current use of insulin (HCC) POCT HEMOGLOBIN A1C Routine 04/25/2024 1 :06 PM SURGICAL CONSULTANT Type 2 diabetes mellitus with hyperglycemia, without long-term current use of insulin (HCC) DIABETES EYE EXAM Routine 02/12/2024 7:56 AM SURGICAL CONSULTANT from Last 3 Months or Most Recently Relevant to Health Maintenance Results * Screening Mammogram Bilateral W Reinier (05/07/2024 10:26 AM SURGICAL CONSULTANT) Anatomical Region Laterality Modality Breast Bilateral Mammography Narrative 05/09/2024 2:52 PM SURGICAL CONSULTANT Examination: Screening Mammogram Bilateral W Reinier: 05/07/24 [...] Result * (ABNORMAL) eGFR (04/25/2024 1:38 PM SURGICAL CONSULTANT) eGFR 45(L) >=60 mL/min/1. 73 m2 Comment: [...] last reviewed 2021. Blood 04/25/2024 1:38 PM SURGICAL CONSULTANT 04/25/2024 7:20 PM SURGICAL CONSULTANT us Brigido Collins MD LAB BLOOD ORDERABLES Final Resul t Performing Organization Address City/[facility] Co de Phone Number ESTELA CLARK [address] [place] [address] * Albumin Creatinine Ratio, Urine (04/25/2024 1:38 PM SURGICAL CONSULTANT) Albumin Ur <12.0 mg/L Comment: Interpretive Data No reference range established. Current interpretive data was last revised 2018. Creatinine Ur 29.8 mg/dL ESTELA CLARK Comment: Interpretive Data No reference range established. Current interpretive data was last revised 2018. Albumin Creatinine Ratio, Ur See Comment 1 - ESTELA CLARK Comment:Unable to calculate Urine 04/25/2024 1:38 PM SURGICAL CONSULTANT 04/25/2024 6:22 PM SURGICAL CONSULTANT us Brigido Collins MD LAB URINE ORDERABLES Final Resul t Performing Organization Address City/[facility]/ZIP Co de Phone Number ESTELA CLARK [address] [facility] [employer] [place], [place] [id number] * (ABNORMAL) Lipid panel (04/25/2024 1:38 PM SURGICAL CONSULTANT) Cholesterol 147 30 - 199 mg/dL Comment: [...] 5 CERNER CH Blood 04/25/2024 1:38 PM SURGICAL CONSULTANT 04/25/2024 6:22 PM SURGICAL CONSULTANT us Brigido Collins MD LAB BLOOD ORDERABLES Final Resul t ESTELA CLARK [address] Department [place] [address] * (ABNORMAL) Comprehensive metabolic panel (04/25/2024 1:38 PM SURGICAL CONSULTANT) Sodium 139 135 - 145 mmol/L Potassium, [...] Units/L CERNER CH Blood 04/25/2024 1:38 PM SURGICAL CONSULTANT 04/25/2024 6:22 PM SURGICAL CONSULTANT us Brigido Collins MD LAB BLOOD ORDERABLES Final Resul t ESTELA [address] Department [place] [address] * (ABNORMAL) POCT hemoglobin A1c (04/25/2024 1:06 PM SURGICAL CONSULTANT) Hemoglobin A1C, POC 6.2 4.0 - 5.6 % Comment:none Capillary blood 04/25/2024 1 :06 PM SURGICAL CONSULTANT us Brigido Collins MD POINT OF CARE TEST ORDERABLES Fi nal Result * POCT glucose (04/25/2024 1:06 PM SURGICAL CONSULTANT) Glucose Blood, POC 111 mg/dL Comment:none Blood 04/25/2024 1:06 PM SURGICAL CONSULTANT Brigido Collins MD POINT OF CARE TEST ORDERABLES Fi nal Result * DIABETES EYE EXAM (02/12/2024 7:56 AM SURGICAL CONSULTANT) Historical Provider HEALTH MAINTENANCE Edited Result - Final from Last 3 Months or Most Recently Relevant to Health Maintenance Insurance [facility] MEDICARE ADVANTAGE [facility] MEDIC[facility] Address: [address] [phone] [facility] MEDICARE ADVANTAGE [facility] MED[facility] Address: [address] [address] [facility] MEDICARE ADVANTAGE [facility] MEDIC[facility] Address: [address] [address] [facility] MEDICARE ADVANTAGE [facility] MEDICARE Address: [address] [phone] Care Teams Clinical Laboratory Service Teacher Relationship Specialty Start Date End Date Juan Miguel Brown DO PCP - General 02/17/16
--- OUTSIDE RECORDS SUMMARY | 2024-07-13 14:13 | XMS_ITS | Encounter Summary ---
Author Organization [facility] Address [address] [place] [address] Care Team Providers Care Measurement Coordinator Name Role Phone Frankie Holloway MD Unavailable Juan Miguel Brown DO Primary Care Provider Encounter Details Date Type Department Care Team (Late st Contact Info) Description 01/28/2024 Lab Requisition [facility] - DermPath Lab [address] [place] [id number] Dilia Melchor MD [address] [facility] [address] [place] [address] Social History Tobacco Use Types Packs/Day Years [...] AM CDT) Case Report Dermatopathology Report Case: [id number] Authorizing Provider: Dilia Melchor MD Collected: 01/28/2024 10:48 AM Ordering Location: [facility] - Received: 01/28/2024 04:51 PM [...] characteristic determined by the Dermatopathology Laboratory at [facility], directed by Dr. Milly Wyatt. These tests need not be, and therefore are not, approved by the [place] Food and Drug Administration. The tests are used for clinical purposes. Billing Codes Specimen Charges Stain Charges 38622 1 4 12:47 PM CDT DERMATOPATHOLOGY LABORATORY Embedded Images 12:47 PM CDT DERMATOPATHOLOGY LABORATORY Pathology/Cytolo gy TISSUE SPECIMEN FROM SKIN / Unknown 01/28/2024 10:48 AM CDT 01/28/2024 4:51 PM CDT Dilia Melchor MD LAB - PATHOLOGY/CYTO LOGY ORDERABLES DERMATOPATHOLOGY LABORATORY [facility] - Department of Dermatology [address], [address] [phone] documented in this encounter Visit Diagnoses Not on filedocumented in this encounter Care Teams Measurement Coordinator Relationship Specialty [place] [address] [place] [id number] PCP - General Internal Medicine 01/31/13 [place] [address] [place] [address] Orthopedic Surgery 01/31/13 documented as of this encounter
--- NOTE | 2024-07-13 14:52 | ED_ITS ---
HPI - Skin/Abscess/Foreign Bdy General Chief complaint: Skin/Abscess/Foreign Body Stated complaint: burn to R. upper leg and R. bottom Time Seen by Provider: 07/13/24 14:01 Source: patient Mode of arrival: ambulatory Limitations: no limitations History of Present Illness HPI narrative: This is a 78-year-old female who presents to the ED for chief complaint of possible carrion to the right thigh and right side of the abdomen. Patient states that she started having pain to the above area on Sunday afternoon and evening. States that she used a heating pad after starting to have this pain. She fell asleep while using a heating pad and is concerned that she may have burn to the right side. She reports painful burning blistering lesions to the area. Does state that she had shingles 25 years ago. States that she saw her doctor on Sunday who prescribed [place] and she is concerned that the [place] is ?shutting everything down? in her abdomen. States that her bowel movements have slowed and she has a lot of abdominal swelling. Denies fevers, chills, nausea, vomiting, diarrhea, urinary symptoms. Related Data Home Medications ?Medication ?Instructions ?Recorded ?Confirmed ?Last Taken ?Type aspirin 81 mg tablet,delayed 81 mg PO DAILY 02/16/21 07/11/24 Unknown History release (Adult Low Dose Aspirin) Allergies Allergy/AdvReac Type Severity Reaction Status Date / Time hydrocodone AdvReac Intermediate Abdominal Verified 07/13/24 12:51 Pain Review of Systems 2 Review of Systems: All systems as dictated in HPI COUNTS INCLUDE 234 BEDS AT THE [facility] Past Medical History Medical History Hospital discharge follow-up Hx of stroke without residual deficits Found on head CT 2022 Morbid obesity with BMI of 45.0-49.9, adult Obesity Measles Mixed hyperlipidemia Carotid artery stenosis Surgical History Surgical History Hx of knee surgery bilateral 2019 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 HEAD: Normocephalic, atraumatic. EYES: PERRLA and EOMI. ENT: Nares clear, no rhinorrhea or epistaxis. Mucous membranes moist. Oropharynx without tonsillar hypertrophy exudate or other lesions. NECK: Supple. No adenopathy or masses. CHEST: No respiratory distress. Clear to auscultation. No wheezes rales or rhonchi HEART: Regular rate and rhythm. No murmur heard. Normal peripheral pulses. ABDOMEN: No focal abdominal tenderness other than over the skin rash. Soft, nondistended, normal active bowel sounds. MSK: Normal range of motion. No edema. SKIN: Warm, dry, no rash. Erythematous, blistering rash noted with somewhat coalescing lesions throughout the right lower abdomen and right upper thigh. It does not cross midline. The rash is blanching. NEURO: Alert and oriented x4. No focal deficits. PSYCH: Normal mood and affect. Course Vital Signs Vital signs: Vital Signs Temperature 98.0 F 07/13/24 12:57 Pulse Rate 107 H 07/13/24 12:57 Respiratory Rate 20 07/13/24 12:57 Blood Pressure 143/76 H 07/13/24 12:57 Pulse Oximetry 95 07/13/24 12:57 Temperature 98.0 F 07/13/24 12:57 Pulse Rate 83 07/13/24 16:10 Respiratory Rate 18 07/13/24 16:10 Blood Pressure 143/76 H 07/13/24 12:57 Pulse Oximetry 98 07/13/24 16:10 MDM - Skin/Abscess/Foreign Bdy MDM Narrative Medical decision making narrative: This is a 78-year-old female who presents to the ED for chief complaint of right sided blistering rash to the abdomen and thigh. Also describing abdominal pain and swelling. Vitals are normal. Exam remarkable for the above. Unclear if this is a burn rash or more of a shingles based on patient's description and exam findings. Lab work is unremarkable. Due to patient's history of diabetes and blistering lesions will place on prophylactic antibiotics. CT abdomen shows no acute findings. Will also place on Valtrex for possible shingles. She has close follow-up with her PCP and will contact them this week. She has pain meds prescribed by PCP previously. Patient will be discharged in stable condition. Supportive measures discussed and return precautions given. Patient is understanding and agreeable with plan for discharge with PCP follow-up. Lab Data 07/13/24 14:50 07/13/24 14:50 Labs: Lab Results 07/13/24 Range/Units 14:50 WBC 8.4 (4.5-10.0) K/mm3 RBC 4.46 (4.2-5.4) M/mm3 Hgb 13.6 (12.0-15.0) g/dL Hct 41.6 (37.0-47.0) % MCV 93.3 (80-100) fl MCH 30.5 (26-34) pg MCHC 32.7 (32-36) g/dl RDW 13.0 (11.5-14.5) % Plt Count 278 D (150-375) k/mm3 MPV 10.7 H (7.4-10.4) fl Immature Gran % (Auto) 0.2 (0-0.5) % Neut % (Auto) 64.9 (45.5-73.1) % Lymph % (Auto) 20.5 (18.3-44.2) % [place] % (Auto) 11.3 H (2.6-8.5) % Eos % (Auto) 2.0 (0-4.4) % Baso % (Auto) 1.1 (0.2-1.2) % Lymph # (Auto) 1.72 (0.9-3.2) K/mm3 [place] # (Auto) 1.0 H (0.1-0.6) K/mm3 Eos # (Auto) 0.2 (0-0.3) K/mm3 Baso # (Auto) 0.1 (0.0-0.1) K/mm3 Abs Immat Gran (auto) 0.02 (0.00-0.031) K/mm3 Absolute Neuts (auto) 5.4 (1.3-6.7) K/mm3 Absolute Nucleated RBC 0.000 (0.0-0.012) K/mm3 Nucleated RBC % 0.0 (0.0-0.2) % Sodium 133 L (137-145) mmol/L Potassium 3.8 (3.4-5.0) mmol/L Chloride 95 L (98-107) mmol/L Carbon Dioxide 26 (22-30) mmol/L Anion Gap 12 (4-12) mmol/L BUN 36 H (7-17) mg/dL Creatinine 1.01 H (0.7-1.0) mg/dL Estim Creat Clear Calc 41 ml/min Estimated GFR 53 L (59 - ) Glucose 155 H (65-110) mg/dL Calcium 9.6 (8.4-10.2) mg/dL Total Bilirubin 0.6 (0.2-1.3) mg/dL AST 34 (14-36) U/L ALT 35 (6-35) U/L Alkaline Phosphatase 57 (38-126) U/L Total Protein 8.0 (6.3-8.2) g/dL Albumin 4.4 (3.5-5.1) g/dL Lipase 155 (23-300) U/L Discharge Plan Discharge Clinical Impression: Blistering rash Patient Disposition: Home, Self-Care Condition: Stable Instructions: Antibiotic Form Additional Instructions: Imaging of the abdomen is normal. This rash is unclear if more related to burn your shingles. Please continue using topical treatments for burn such as lidocaine patches. Take cephalexin for bacterial prevention as well as Valtrex in case this is more of a shingles rash. Follow-up closely with your PCP this week If you have any new or worsening symptoms please return to the ER for further evaluation. Patient Language: Persian Prescriptions: New cephalexin 500 mg capsule 500 mg PO Q8H 7 Days Qty: 21 0RF valacyclovir [Valtrex] 1 gram tablet 1,000 mg PO Q12H Qty: 14 0RF No Action aspirin [Adult Low Dose Aspirin] 81 mg tablet,delayed release (DR/EC) 81 mg PO DAILY warfarin 2.5 mg tablet 2.5 mg PO DAILY Qty: 30 0RF Rx Instructions: Sunday and Sunday warfarin 3 mg tablet 3 mg PO DAILY Qty: 90 0RF Rx Instructions: M-F metformin 1,000 mg tablet 500 mg PO BIDWMEAL Qty: 180 1RF furosemide 40 mg tablet 40 mg PO DAILY Qty: 100 3RF escitalopram oxalate [Lexapro] 10 mg tablet 10 mg PO DAILY Qty: 100 3RF atorvastatin 80 mg tablet See Rx Instructions .ROUTE .COMPLEX Qty: 100 3RF Dose Instruction: TAKE 1 TABLET DAILY Rx Instructions: TAKE 1 TABLET DAILY hydrochlorothiazide 25 mg tablet 25 mg PO DAILY Qty: 100 3RF fenofibrate nanocrystallized 145 mg tablet 145 mg PO DAILY Qty: 100 3RF Rx Instructions: NEEDS APPOINTMENT FOR FURTHER REFILLS irbesartan 75 mg tablet 75 mg PO DAILY Qty: 100 3RF potassium chloride [Klor-Con 10] 10 mEq tablet extended release 10 meq PO DAILY Qty: 100 3RF metoprolol tartrate 25 mg tablet 12.5 mg PO BID Qty: 100 3RF Rx Instructions: NEEDS APPOINTMENT FOR FURTHER REFILLS ezetimibe [Zetia] 10 mg tablet 10 mg PO DAILY Qty: 100 3RF amlodipine 5 mg tablet See Rx Instructions .ROUTE .COMPLEX Qty: 135 1RF Dose Instruction: TAKE 1 AND 1/2 TABLETS BY MOUTH DAILY Rx Instructions: TAKE 1 AND 1/2 TABLETS BY MOUTH DAILY hydrocodone-acetaminophen 5-325 mg tablet 1 tablet PO Q6H PRN (Reason: pain) Qty: 20 0RF Follow-up/Referrals: Juan Miguel Brown DO [Primary Care Provider] - Time of Disposition: 15:27
[2024-07-13 14:54] LABS: Basophils Absolute Auto 0.1 K/mm3 (0.0-0.1); Basophils Percent Auto 1.1 % (0.2-1.2); Eosinophils Absolute Auto 0.2 K/mm3 (0-0.3); Hematocrit 41.6 % (37.0-47.0); Hemoglobin 13.6 g/dL (12.0-15.0); Immature Granulocyte Absolute 0.02 K/mm3 (0.00-0.031); Immature Granulocyte Percent A 0.2 % (0-0.5); Lymphocytes Absolute Auto 1.72 K/mm3 (0.9-3.2); Lymphocytes Percent Auto 20.5 % (18.3-44.2); Mean Corpuscular HGB Conc 32.7 g/dl (32-36); Mean Corpuscular Hemoglobin 30.5 pg (26-34); Mean Corpuscular Volume 93.3 fl (80-100); Mean Platelet Volume 10.7 fl (7.4-10.4); Monocytes Percent Auto 11.3 % (2.6-8.5); Neutrophils Absolute Auto 5.4 K/mm3 (1.3-6.7); Neutrophils Percent Auto 64.9 % (45.5-73.1); Platelet Count Result 278 k/mm3 (150-375); Red Blood Count 4.46 M/mm3 (4.2-5.4); White Blood Count 8.4 K/mm3 (4.5-10.0)
[2024-07-13] MEDS: oxyCODONE HCL (*CRX) 2.5 MG TAB IR PO (14:54)
[2024-07-13 15:07] LABS: Alanine Aminotransferase 35 U/L (6-35); Albumin Level 4.4 g/dL (3.5-5.1); Alkaline Phosphatase 57 U/L (38-126); Aspartate Amino Transferase 34 U/L (14-36); Bilirubin,Total 0.6 mg/dL (0.2-1.3); Blood Urea Nitrogen 36 mg/dL (7-17); Calcium 9.6 mg/dL (8.4-10.2); Chloride 95 mmol/L (98-107); Estimated CRCL calculation 41 ml/min; Estimated Glomerular Filt Rate 53; Glucose 155 mg/dL (65-110); Lipase 155 U/L (23-300); Potassium 3.8 mmol/L (3.4-5.0); Sodium 133 mmol/L (137-145)
[2024-07-13 15:24] LABS: Anion Gap 12 mmol/L (4-12); Carbon Dioxide 26 mmol/L (22-30)
[2024-07-13 16:10] VITALS: PULSE 83; RESP 18; O2SAT 98
== END 2024-07-13 16:18 | disposition home or self-care (01) ==
PROVIDERS: Emergency Provider Physician Assistant; PCP Internal Medicine
DX: R21 Rash and other nonspecific skin eruption (principal); I65.29 Occlusion and stenosis of unspecified carotid artery; E78.2 Mixed hyperlipidemia; E66.01 Morbid (severe) obesity due to excess calories; Z68.39 Body mass index [BMI] 39.0-39.9, adult; Z95.2 Presence of prosthetic heart valve; Z86.73 Personal history of transient ischemic attack (TIA), and cerebral infarction without residual deficits
CPT/HCPCS: 36415; 74176; 80053; 83690; 85025; 99284; A9270

== ENCOUNTER 2024-08-13 11:09 | Outpatient (CLI) | payer MEDICARE, SELFPAY ==
--- NOTE | ~2024-08-13 | XR_ITS ---
Supine and upright views of the abdomen Clinical history: Diarrhea Findings: Bowel gas pattern is nonspecific. No evidence for obstruction or free air. There is an ovoi d sclerotic focus of calcification projecting over the sacrum just left of midline, nonspecific. Ther e is degenerative change of the thoracolumbar spine with mild dextro scoliosis. Cholecystectomy clips are present.. Impression: Nonspecific bowel gas pattern. Nonspecific ovoid calcification or other density projecting over the pelvis, as noted above. Reviewed, dictated and finalized at location M. Impression: Nonspecific bowel gas pattern. Nonspecific ovoid calcification or other density projecting over the pelvis, as noted above.
== END 2024-08-13 11:10 | disposition home or self-care (01) ==
LOC: GOSHIMG 11:10
PROVIDERS: PCP Clinical Nurse Specialist; Visit Provider Clinical Nurse Specialist
DX: R19.7 Diarrhea, unspecified (principal)
CPT/HCPCS: 74018

== ENCOUNTER 2024-08-15 09:50 | Outpatient (CLI) | payer MEDICARE, SELFPAY ==
--- OUTSIDE RECORDS SUMMARY | 2024-08-15 10:00 | XMS_ITS | Clinical Summary ---
Author Organization [facility] [address] Address [address] [place] [address] Care Team Providers Care Maple Products Maker Name Role Phone Juan Miguel Brown DO Primary Care Provider [phone]- [phone] Allergies No known active allergies Medications warfarin [...] 08/15/2022 Assessment & Plan (04/25/2024 1:32 PM [employer]): Chronic, stable. Update lipid profile. Continue statin therapy with atorvastatin 80 mg daily Assessment & Plan (11/15/2023 2:27 PM CDT): Chronic problem. Currently taking Atorvastatin 80mg, fenofibrate 145mg & Zetia 10mg. Last lipid panel: 08/15/22 XZE=861, FE=000. Will update labs today. Does not mychart. Verified phone #/address to contact re: results. Assessment & Plan (07/09/2023 11:01 AM CDT): Chronic problem. Currently taking Atorvastatin 80mg, fenofibrate 145mg & Zetia 10mg. Last lipid panel: 08/15/22 AME=782, VL=726. Assessment & Plan (08/15/2022 11:23 AM CDT): Chronic problem. Currently taking Atorvastatin 80mg, fenofibrate 145mg & Zetia 10mg. Last lipid panel: 08/25/21 LDL=69, RY=381. Will update lipid panel today. Verified phone #/address to contact re: results. Hypertension associated with diabetes 02/23/2022 Assessment & Plan (04/25/2024 1:33 PM [employer]): Chronic, stable. Continue current regimen including Avapro [...] time. Assessment & Plan (03/08/2023 2:09 PM [employer]): Chronic, well controlled Update MA and GFR Continue Irbesartan Assessment & Plan (08/15/2022 11:21 AM CDT): Chronic problem. Controlled on current Irbesartan 75mg daily, metoprolol 25mg daily, amlodipine 5mg daily, lasix 40mg daily, HCTZ 25mg daily. No changes at this time. Assessment & Plan (02/23/2022 3:29 PM [employer]): Chronic, well controlled Importance of low salt diet and exercise were discussed Continue current meds Update GFR Update MA Type 2 diabetes mellitus wit h hyperglycemia, without long-term current use of insulin 10/13/2021 Assessment & Plan (04/25/2024 1:32 PM [employer]): Chronic, stable Increase Mounjaro to 7.5 mg [...] labs. DM eye exam 07/2023 at [facility]. Letter sent to get copy of report. [...] appt later this month at the [facility]. Strive for regular exercise (30min most days) [...] infection. Assessment & Plan (03/08/2023 2:08 PM [employer]): Hba1c was Lab Results Component Value Date [...] infection. Assessment & Plan (02/23/2022 3:28 PM [employer]): Well controlled Continue metformin Pt to start [...] 07/09/2023 Assessment & Plan (02/23/2022 3:29 PM [employer]): Diet and exercise were discussed Body mass index 40.0-44.9, adult ([facility]) 02/23/2022 07/09/2023 Dyslipidemia 02/22/2021 07/09/2023 Morbid obesity with BMI of 40.0-44.9, adult 03/22/2017 07/09/2023 Vaginal burning 08/03/2015 07/09/2023 Encounters Date Type Department Care Team Description 08/08/2024 2:00 PM CDT Office Visit [facility] Medical [facility] at [address] [phone] Lyn Acevedo NP Diarrhea, unspecified type (Primary Dx) 06/17/2024 Telephone [facility] Diabetes [facility] Endocrinology [address] [place] [phone] Peg Eisenberg NP from Last 3 Months Surgical History Surgery [...] on file Legal Sex Female 1:14 AM [employer] Gender Identity Not on file Sexual Orientation Straight 04/25/2024 12 :58 PM [employer] Obstetrics History Para Term AB IAB SAB Ectopic Multiple Livin g Live Births 19 Date Outcome GA Total Labor Labor/2nd/3rd Weight Sex Type Anes PTL Laury A1 A5 Name Clin Last Filed Vital Signs Vital Sign Reading Time Taken Comments Blood Pressure 143/80 08/08/2024 2:04 PM CDT Pulse 85 08/08/2024 2:04 PM CDT Temperature 36.6 C (97.8 F) 08/08/2024 2:04 PM CDT Respiratory Rate 18 08/08/2024 2:04 PM CDT Oxygen Saturation 97% 08/08/2024 2:04 PM CDT Inhaled Oxygen Concentration - - Weight 88.5 kg (195 lb) 08/08/2024 2:04 PM CDT Height 149.9 cm (4' 11 ) 04/25/2024 1:05 PM [employer] Body Mass Index 39.39 04/25/2024 1:05 PM [employer] Plan of Treatment Health Maintenance Due Date [...] Read Routine (OP Routine) 05/07/2024 10:26 AM [employer] Screening mammogram, encounter for EGFR Routine 04/25/2024 1:38 PM [employer] Type 2 diabetes mellitus with hyperglycemia, without long-term current use of insulin (HCC) LIPID PANEL Routine 04/25/2024 1:38 PM [employer] Type 2 diabetes mellitus with hyperglycemia, without long-term current use of insulin (HCC) ALBUMIN CREATININE RATIO, URINE Routine 04/25/2024 1:38 PM [employer] Type 2 diabetes mellitus with hyperglycemia, without long-term current use of insulin (HCC) POCT HEMOGLOBIN A1C Routine 04/25/2024 1:06 PM [employer] Type 2 diabetes mellitus with hyperglycemia, without long-term current use of insulin (HCC) HM DIABETES EYE EXAM Routine 02/12/2024 7:56 AM [employer] from Last 3 Months or Most Recently Relevant to Health Maintenance Results * Screening Mammogram Bilateral W Reinier (05/07/2024 10:26 AM [employer]) Anatomical Region Laterality Modality Breast Bilateral Mammography Narrative 05/09/2024 2:52 PM [employer] Examination: Screening Mammogram Bilateral W Reinier: 05/07/24 [...] Result * (ABNORMAL) eGFR (04/25/2024 1:38 PM [employer]) eGFR 45(L) >=60 mL/min/1. 73 m2 Comment: [...] last reviewed 2021. Blood 04/25/2024 1:38 PM [employer] 04/25/2024 7:20 PM [employer] Brigido Collins MD LAB BLOOD ORDERABLES Final Resul t ESTELA [facility]ARK [address] [place] [address] * Albumin Creatinine Ratio, Urine (04/25/2024 1:38 PM [employer]) Albumin Ur <12.0 mg/L Comment: Interpretive Data No reference range established. Current interpretive data was last revised 2018. Creatinine Ur 29.8 mg/dL ESTELA CLARK Comment: Interpretive Data No reference range established. Current interpretive data was last revised 2018. Albumin Creatinine Ratio, Ur See Comment ESTELA CLARK Comment:Unable to calculate Urine 04/25/2024 1:38 PM [employer] 04/25/2024 6:22 PM [employer] us Brigido Collins MD LAB URINE ORDERABLES Final Resul t ESTELA [address] [place] [address] * (ABNORMAL) Lipid panel (04/25/2024 1:38 PM [employer]) Cholesterol 147 30 - 199 mg/dL Comment: [...] NCEP Expert Panel. Circulation 2004;110:227 3. Darci Polanco al. EMILIA Cardiol. 2019August 07;5(5):540-548. doi: 10.1001/jamacardio.2020.0013 Current Interpretive Data was last revised on 2023. Non-HDL Cholesterol 116 mg/dL ESTELA CLARK Comment: Interpretive Data Ages [...] 5 CERNER [facility] Blood 04/25/2024 1:38 PM [employer] 04/25/2024 6:22 PM [employer] Brigido Collins MD LAB BLOOD ORDERABLES Final Resul t ESTELA [address] [place] [address] * (ABNORMAL) POCT hemoglobin A1c (04/25/2024 1:06 PM [employer]) Hemoglobin A1C, POC 6.2 4.0 - 5.6 % Comment:none Capillary blood 04/25/2024 1 :06 PM [employer] Brigido Collins MD POINT OF CARE TEST ORDERABLES Fi nal Result * DIABETES EYE EXAM (02/12/2024 7:56 AM [employer]) Yifan Vu MD HEALTH MAINTENANCE Edited Result - Final from Last 3 Months or Most Recently Relevant to Health Maintenance Insurance [facility] MEDICARE ADVANTAGE [facility] Address: [facility] [address] [place] [address] [facility] MEDICARE ADVANTAGE [facility] Address: [address] [place] [phone] [facility] MEDICARE ADVANTAGE [facility] Address: [address] [place] [phone] [facility] MEDICARE ADVANTAGE [facility] Address: [facility] [address] [place] [address] Care Teams Maple Products Maker Relationship Specialty Start Date End Date Juan Miguel Brown DO PCP - General 02/17/16
--- OUTSIDE RECORDS SUMMARY | 2024-08-15 10:00 | XMS_ITS | Referral Summary ---
Author Organization [facility] [place] [address] Address [address] [place] [address] Care Team Providers Care Cooperer Name Role Phone Juan Miguel Brown DO Primary Care Provider [phone] Encounters Date Type Department Care Team Description 08/08/2024 2:00 PM CDT Office Visit [facility] at [address] [address] Lyn Acevedo NP Diarrhea, unspecified type (Primary Dx) 06/17/2024 Telephone [facility] Endocr[facility]ology [address] [place] [address] Peg Eisenberg NP from Last 3 Months Allergies No known [...] (3 mg total) by mouth daily 11/18/19 22 Active blood-glucose meter kit Use daily or as directed for monitoring of diabetes 1 kit 02/24/20 Active blood glucose diagnostic (glucose blood) strip Check blood sugar as directed 50 each 02/24/20 22 Active tirzepatide (Mounjaro) 7.5 mg/0.5 mL pen [...] 08/15/2022 Assessment & Plan (04/25/2024 1:32 PM TISSUE TECHNICIAN): Chronic, stable. Update lipid profile. Continue statin therapy with atorvastatin 80 mg daily Assessment & Plan (11/15/2023 2:27 PM CDT): Chronic problem. Currently taking Atorvastatin 80mg, fenofibrate 145mg & Zetia 10mg. Last lipid panel: 08/15/22 PAY=224, IJ=250. Will update labs today. Does not mychart. Verified phone #/address to contact re: results. Assessment & Plan (07/09/2023 11:01 AM CDT): Chronic problem. Currently taking Atorvastatin 80mg, fenofibrate 145mg & Zetia 10mg. Last lipid panel: 08/15/22 RHN=607, QP=528. Assessment & Plan (08/15/2022 11:23 AM CDT): Chronic problem. Currently taking Atorvastatin 80mg, fenofibrate 145mg & Zetia 10mg. Last lipid panel: 08/25/21 LDL=69, SV=828. Will update lipid panel today. Verified phone #/address to contact re: results. Hypertension associated with diabetes 02/23/2022 Assessment & Plan (04/25/2024 1:33 PM TISSUE TECHNICIAN): Chronic, stable. Continue current regimen including Avapro [...] time. Assessment & Plan (03/08/2023 2:09 PM TISSUE TECHNICIAN): Chronic, well controlled Update MA and GFR Continue Irbesartan Assessment & Plan (08/15/2022 11:21 AM CDT): Chronic problem. Controlled on current Irbesartan 75mg daily, metoprolol 25mg daily, amlodipine 5mg daily, lasix 40mg daily, HCTZ 25mg daily. No changes at this time. Assessment & Plan (02/23/2022 3:29 PM TISSUE TECHNICIAN): Chronic, well controlled Importance of low salt diet and exercise were discussed Continue current meds Update GFR Update MA Type 2 diabetes mellitus wit h hyperglycemia, without long-term current use of insulin 10/13/2021 Assessment & Plan (04/25/2024 1:32 PM TISSUE TECHNICIAN): Chronic, stable Increase Mounjaro to 7.5 mg [...] labs. DM eye exam 07/2023 at [facility]. Letter sent to get copy of report. [...] appt later this month at the [facility]. Strive for regular exercise (30min most days) [...] infection. Assessment & Plan (03/08/2023 2:08 PM TISSUE TECHNICIAN): Hba1c was Lab Results Component Value Date [...] month Adjustment to medications: Continue metformin Start Mounjaro Assessment & Plan (08/15/2022 11:25 AM CDT): [...] infection. Assessment & Plan (02/23/2022 3:28 PM TISSUE TECHNICIAN): Well controlled Continue metformin Pt to start [...] 07/09/2023 Assessment & Plan (02/23/2022 3:29 PM TISSUE TECHNICIAN): Diet and exercise were discussed Body mass index 40.0-44.9, adult ([facility]) 02/23/2022 07/09/2023 Dyslipidemia 02/22/2021 07/09/2023 Morbid [...] on file Legal Sex Female 1:14 AM TISSUE TECHNICIAN Gender Identity Not on file Sexual Orientation Straight 04/25/2024 12 :58 PM TISSUE TECHNICIAN Last Filed Vital Signs Vital Sign Reading [...] cm (4' 11 ) 04/25/2024 1:05 PM TISSUE TECHNICIAN Body Mass Index 39.39 04/25/2024 1:05 PM TISSUE TECHNICIAN Plan of Treatment Not on file Procedures Procedure Name Priority Date/Time Associated Diagnosis Comments SCREENING MAMMOGRAM BILATERAL W REINIER Schedule Routine, Read Routine (OP Routine) 05/07/2024 10:26 AM TISSUE TECHNICIAN Screening mammogram, encounter for EGFR Routine 04/25/2024 1:38 PM TISSUE TECHNICIAN Type 2 diabetes mellitus with hyperglycemia, without long-term current use of insulin (HCC) LIPID PANEL Routine 04/25/2024 1:38 PM TISSUE TECHNICIAN Type 2 diabetes mellitus with hyperglycemia, without long-term current use of insulin (HCC) ALBUMIN CREATININE RATIO, URINE Routine 04/25/2024 1:38 PM TISSUE TECHNICIAN Type 2 diabetes mellitus with hyperglycemia, without long-term current use of insulin (HCC) POCT HEMOGLOBIN A1C Routine 04/25/2024 1:06 PM TISSUE TECHNICIAN Type 2 diabetes mellitus with hyperglycemia, without long-term current use of insulin (HCC) HM DIABETES EYE EXAM Routine 02/12/2024 7:56 AM TISSUE TECHNICIAN from Last 3 Months or Most Recently Relevant to Health Maintenance Results * Screening Mammogram Bilateral W Reinier (05/07/2024 10:26 AM TISSUE TECHNICIAN) Anatomical Region Laterality Modality Breast Bilateral Mammography Narrative 05/09/2024 2:52 PM TISSUE TECHNICIAN Examination: Screening Mammogram Bilateral W Reinier: 05/07/24 [...] Result * (ABNORMAL) eGFR (04/25/2024 1:38 PM TISSUE TECHNICIAN) eGFR 45(L) >=60 mL/min/1. 73 m2 Comment: [...] last reviewed 2021. Blood 04/25/2024 1:38 PM TISSUE TECHNICIAN 04/25/2024 7:20 PM TISSUE TECHNICIAN us Brigido Collins MD LAB BLOOD ORDERABLES Final Resul t ESTELA CLARK [address] [facility] [place] [address] * Albumin Creatinine Ratio, Urine (04/25/2024 1:38 PM TISSUE TECHNICIAN) Albumin Ur <12.0 mg/L Comment: Interpretive Data No reference range established. Current interpretive data was last revised 2018. Creatinine Ur 29.8 mg/dL ESTELA CLARK Comment: Interpretive Data No reference range established. Current interpretive data was last revised 2018. Albumin Creatinine Ratio, Ur See Comment - ESTELA CLARK Comment:Unable to calculate Urine 04/25/2024 1:38 PM TISSUE TECHNICIAN 04/25/2024 6:22 PM TISSUE TECHNICIAN us Brigido Collins MD LAB URINE ORDERABLES Final Resul t Performing Organization Address City/State/[facility] Co de Phone Number KELSIEMILY CLARK [address] [place] [address] * (ABNORMAL) Lipid panel (04/25/2024 1:38 PM TISSUE TECHNICIAN) Cholesterol 147 30 - 199 mg/dL Comment: [...] 2004;110:227 3. Darci Polanco al. EMILIA Cardiol. 2020 August 07;5(5):540-548. doi: [email or web address] Current Interpretive Data was [...] last revised on 2017. Chol/HDL ratio 5 CEREMILY CH Blood 04/25/2024 1:38 PM TISSUE TECHNICIAN 04/25/2024 6:22 PM TISSUE TECHNICIAN Brigido Collins MD LAB BLOOD ORDERABLES Final Resul t ESTELA [address] [facility] [place] [address] * (ABNORMAL) POCT hemoglobin A1c (04/25/2024 1:06 PM TISSUE TECHNICIAN) Hemoglobin A1C, POC 6.2 4.0 - 5.6 % Comment:none Capillary blood 04/25/2024 1 :06 PM TISSUE TECHNICIAN Brigido Collins MD POINT OF CARE TEST ORDERABLES Fi nal Result * DIABETES EYE EXAM (02/12/2024 7:56 AM TISSUE TECHNICIAN) Yifan Vu MD HEALTH MAINTENANCE Edited Result - Final from Last 3 Months or Most Recently Relevant to Health Maintenance Insurance [facility] MEDICARE ADVANTAGE [place] [id number] [facility] MEDICARE ADVANTAGE [place] [id number] [facility] MEDICARE ADVANTAGE [place] [id number] [facility] MEDICARE ADVANTAGE Care Teams Cooperer Relationship Specialty Start Date End Date Juan Miguel Brown DO PCP - General 02/17/16
--- OUTSIDE RECORDS SUMMARY | 2024-08-15 10:00 | XMS_ITS | Clinical Summary ---
Author Organization [facility] Address [address] [facility] [place] [address] Care Team Providers Care Service Unit Operator Oil Well Name Role Phone Frankie Holloway MD Unavailable [phone] Juan Miguel Brown DO Primary Care Provider Source Comments [facility],non-owned Affiliates and Associated Physician Practices is amultiple site organization consisting of ambulatory clinics and hospital sitesin [place], [place] and [place]. This disclosure is being madepursuant to the Care Everywhere program and may not contain all information available regarding this patient. Last updated 17.[facility] Allergies No known active allergies Medications * Be aware that medications may not be up to date on this document. Alwaysverify current medications with the patient. atorvastatin (LIPITOR) 80 MG tablet Take 80 [...] by mouth 2 times daily Active Multiple Vitamins-Longitudinal Float Operator als (MULTIVITAMIN & MINERAL PO) Take by mouth once daily Active irbesartan (AVAPRO) 75 MG tablet Take 75 mg by mouth once daily Active warfarin (COUMADIN) 2.5 MG tablet Take 2.5 mg by mouth once daily Active hydroCHLOROthi azide (HYDRODIURIL) 25 MG tablet Take 1 tablet by mouth once daily 9 Active ASPIRIN 81 PO Take 81 mg by mouth once daily Active acetaminophen (TYLENOL) 500 MG tablet Take 1,000 mg by mouth every 4 hours as needed for Fever or Pain Maximum allowable Acetaminophen amount = 4 Grams (4000 mg) / 24 hours. Active Active Problems Problem Noted Date Diagnosed Date Status post total left knee replacement 08/24/19 19 Primary osteoarthritis of both knees 05/13/2015 Osteoarthrosis involving lower leg 01/31/2013 Overview (07/03/2015): 2015 IMO Updt Social History Tobacco Use Types Packs/Day Years Used Date Smoking Tobacco: Never Smokeless Tobacco: Never Alcohol Use Standard Drinks/Week Comments Yes 0 (1 standard drink = 0.6 oz pur e alcohol) rare Comments Unknown Sex and Gender Information Value Date Recorded Sex Assigned at Not on file Legal Sex Female 2:08 PM CDT Gender Identity Not on file Sexual Orientation Not on file Last Filed Vital Signs Vital Sign Reading Time Taken Comments Blood Pressure 157/81 12/14/2018 8:20 AM CDT Pulse 54 12/14/2018 8:20 AM CDT Temperature 36.4 C (97.5 F) 12/14/2018 8:20 AM CDT Respiratory Rate 16 12/14/2018 8:20 AM CDT Oxygen Saturation 100% 12/14/2018 8: 20 AM CDT Inhaled Oxygen Concentration - - [...] - 1-dose 75+ series) 2021 COVID-19 VACCINE (1 - 2023-2 5 season) 2023 DEPRESSION SCREENING [...] this topic Medical Devices Implanted Type Area Director [facility] Device Identifier Shelf Expiration Date Model / Serial / Lot Nabil Bone [place]-G Hv 40/20 Implanted:Qty: 1 on 07/11/2018 by Frankie Holloway MD at [facility] Left: Knee [employer] 09/11/2019 600-15-100 / / [id number] Cmpnt Fem Kn Lt Cr Cmnt Prm Vngrd Intlk Implanted:Qty: 1 on 07/11/2018 by Frankie Holloway MD at [facility] Left: Knee Clau Biomet 03/12/2025 [id number] / / [id number] Tray Tib 63mm Kn Cocr I Beam Implanted:Qty: 1 on 07/11/2018 by Frankie Holloway MD at [facility] Left: Knee Clau [employer]omet 02/11/2028 [id number] / / [id number] Brng [id number] Vngrd Arcm Kn Ant Stab Implanted:Qty: 1 on 07/11/2018 by Frankie Holloway MD at [facility] Left: Knee Clau [employer]omet 04/12/2022 [id number] / / [id number] Cmnt Bone Cblt 40gm Hvisc Strl Implanted:Qty: 1 on 12/12/2018 by Frankie Holloway MD at [facility] Right: Knee [employer] 04/13/2020 600-15-000 / / [id number] Cmpnt Fem Kn Rt Cr Cmnt Prm Vngrd Intlk Implanted:Qty: 1 on 12/12/2018 by Frankie Holloway MD at [facility] Right: Knee Clau [employer]omet 05/14/2028 [id number] / / [id number] Tray Tib 63mm Kn Cocr I Beam Implanted:Qty: 1 on 12/12/2018 by Frankie Holloway MD at [facility] Right: Knee Clau [employer] 04/13/2028 [id number] / / [id number] Cmpnt Ptlr 28mm 1 Pg Wire Ascnt Arcm Kn Implanted:Qty: 1 on 12/12/2018 by Frankie Holloway MD at [facility] Right: Knee Clau [employer]omet 11/12/2023 [id number] / / [id number] Brng [id number] Vngrd Arcm Kn Ant Stab Implanted:Qty: 1 on 12/12/2018 by Frankie Holloway MD at [facility] Right: Knee Clau [employer] 01/11/2022 [id number] / / [id number] Insurance [employer] MA[employer]ED MEDICARE ADV Advance Directives * Full Code (Latest Code Status on File) Date Activated Date Inactivated Comments 12/12/2018 5:20 PM 12/14/2018 3:21 PM * Full Code Date Activated Date Inactivated Comments 07/11/2018 4:03 PM 07/14/2018 1:20 PM Care Teams Service Unit Operator Oil Well Relationship Specialty [place] [address] [place] [address] PCP - General Internal Medicine 01/31/13 [place] [address] [place] [address] Orthopedic Surgery 01/31/13
--- OUTSIDE RECORDS SUMMARY | 2024-08-15 10:00 | XMS_ITS | Encounter Summary ---
Author Organization [facility] Address [address] [place] [address] Care Team Providers Care Pulvi Mixer Operator Name Role Phone Frankie Holloway MD Unavailable Juan Miguel Brown DO Primary Care Provider Encounter Details Date Type Department Care Team (Late st Contact Info) Description 01/28/[address] [facility] - DermPath Lab [address] [facility] [place] [address] Dilia Melchor MD [address] [facility] 3 DEPT [place] [address] Social History Tobacco Use Types Packs/Day Years [...] documented as of this encounter Functional Status * Is person deaf or have serious hearing difficulty? Answer Date of Assessment Author No 12/14/2018 12:59 PM CDT Kd Gutierrez RN * Is person blind or have serious difficulty seeing? Answer Date of Assessment Author No 12/14/2018 12:59 PM CDT Kd Gutierrez RN * Does person have serious difficulty walking/climbing stairs? Answer Date of Assessment Author No 12/14/2018 12:59 PM CDT Kd Gutierrez RN * Does person have difficulty dressing/bathing? Answer Date of Assessment Author No 12/14/2018 12:59 PM CDT Kd Gutierrez RN * Does person have difficulty doing errands alone? Answer Date of Assessment Author No 12/14/2018 12:59 PM CDT Kd Gutierrez RN documented as of this encounter Mental Status * Does person have difficulty concentrating/remembering/making decisions? Answer Entry Date Author No 12/14/2018 12:59 PM CDT Kd Gutierrez RN documented in this encounter Plan of Treatment Not on file documented as of this encounter Procedures Procedure Name Priority Date/Time Associated Diagnosis Comments DERMATOPATHOLOGY Routine 01/28/2024 10:4 8 AM CDT documented in this encounter Results * DERMATOPATHOLOGY (01/28/2024 10:48 AM CDT) Case Report Dermatopathology Report Case: [id number] Authorizing Provider: Dilia Melchor MD Collected: 01/28/2024 10:48 AM Ordering Location: [facility] - Received: 01/28/2024 04:51 PM [...] characteristic determined by the Dermatopathology Laboratory at [facility], directed by Dr. Milly Wyatt. These tests need not be, and therefore are not, approved by the [place] Food and Drug Administration. The tests are used for clinical purposes. Billing Codes Specimen Charges Stain Charges 69832 1 12:47 PM CDT DERMATOPATHOLOGY LABORATORY Embedded Images 12:47 PM CDT DERMATOPATHOLOGY LABORATORY Pathology/Cytolo gy TISSUE SPECIMEN FROM SKIN / Unknown 01/28/2024 10:48 AM CDT 01/28/2024 4:51 PM CDT Dilia Melchor MD LAB - PATHOLOGY/CYTOLOGY ORD ERABLES Final Result DERMATOPATHOLOGY LABORATORY [facility] - Department of Dermatology [address] [phone] documented in this encounter Visit Diagnoses Not on filedocumented in this encounter Care Teams Pulvi Mixer Operator Relationship Specialty Start [place] [address] [place] [address] PCP - General Internal Medicine 01/31/13 [place] [address] [place] [address] Orthopedic Surgery 01/31/13 documented as of this encounter
--- OUTSIDE RECORDS SUMMARY | 2024-08-15 10:00 | XMS_ITS | Encounter Summary ---
Author Organization [facility] Address [address] [facility] [place] [address] Care Team Providers Care Litigation Claim Representative Name Role Phone Frankie Holloway MD Unavailable Juan Miguel Brown DO Primary Care Provider Encounter Details Date Type Department Care Team (Late st Contact Info) Description 02/16/2020 Lab Requisition [facility] [address] [facility] [place] [address] Dilia Melchor MD [address] [facility] [address] [place] [address] Social History Tobacco Use Types Packs/Day Years [...] of Assessment Author No 12/14/2018 12:59 PM JESUSITAT Kd Gutierrez RN * Does person have serious difficulty walking/climbing stairs? Answer Date of Assessment Author No 12/14/2018 12:59 PM JESUSITAT Kd Gutierrez RN * Does person have difficulty dressing/bathing? Answer Date of Assessment Author No 12/14/2018 12:59 PM Kd Alicia RN * Does person have difficulty doing errands alone? Answer Date of Assessment Author No 12/14/2018 12:59 PM Kd Alicia RN documented as of this encounter Mental Status * Does person have difficulty concentrating/remembering/making decisions? Answer Entry Date Author No 12/14/2018 12:59 PM Kd Alicia RN documented in this encounter Plan of Treatment Not on file documented as of this encounter Procedures Procedure Name Priority Date/Time Associated Diagnosis Comments DERMATOPATHOLOGY Routine 02/12/2020 12:0 0 AM CYLINDER TESTER documented in this encounter Results * DERMATOPATHOLOGY (02/12/2020 12:00 AM CYLINDER TESTER) Case Report Dermatopathology Report Case: [id number] Authorizing Provider: Dilia Melchor MD Collected: 02/12/2020 12:00 AM Ordering Location: [facility] DermPath Lab Received: 02/16/2020 10:49 AM Pathologist: Heide Wyatt MD Specimens: A) - Skin, left cheek B) - Skin, right ankle 0 4:43 PM CYLINDER TESTER DERMATOPATHOLOGY LABORATORY Final Diagnosis Specimen A. SKIN, left cheek: ACTINIC KERATOSIS, LICHENOID (L57.0) Specimen B. SKIN, right ankle: STASIS DERMATITIS (L30.8) DERMAL FIBROSIS (L90.5) 0 4:43 PM CYLINDER TESTER DERMATOPATHOLOGY LABORATORY Clinical History A: R/O AK vs SCC. [place] papule. B: R/O DF vs SCC. [place] papule. 0 4:43 PM CYLINDER TESTER DERMATOPATHOLOGY LABORATORY Gross Description Specimen A: Received is one formalin filled container labeled with the patient's name and designated left cheek. The specimen consists of a shave measuring [id number]. Jar 0. Specimen B: Received is one formalin filled container labeled with the patient's name and designated right ankle. The specimen consists of a shave measuring [id number]. Jar 0. 0 4:43 PM [facility] DERMATOPATHOLOGY LABORATORY Microscopic Description Specimen A. SKIN, [...] in the sections examined. 0 4:43 PM [facility] DERMATOPATHOLOGY LABORATORY Disclaimer An external and internal positive and negative controls are appropriate for the histochemical, immunohistochemical and immunofluorescence stain(s) in this case (if any), except where stated explicitly. The performance characteristics of the stain(s) cited in this report were developed and its performance characteristic determined by the Dermatopathology Laboratory at [facility], directed by Dr. Milly Wyatt. These tests need not be, and therefore are not, approved by the [place] Food and Drug Administration. The tests are used for clinical purposes. Billing Codes Specimen Charges Stain Charges 72888 18072 1 1 0 4:43 PM [facility] DERMATOPATHOLOGY LABORATORY Embedded Images 0 4:43 PM [facility] DERMATOPATHOLOGY LABORATORY Pathology/Cytology TISSUE SPECIMEN FROM SKIN / Unknown 02/12/2020 02/16/2020 10:49 AM CYLINDER TESTER Miscellaneous samples (specimen) TISSUE SPECIMEN FROM SKIN / Unknown 02/12/2020 02/16/2020 10:49 AM CYLINDER TESTER Dilia Melchor MD LAB - PATHOLOGY/CYTOLOGY ORD ERABLES Final Result DERMATOPATHOLOGY LABORATORY [facility] - Department of Dermatology [address] [phone] documented in this encounter Visit Diagnoses Not on filedocumented in this encounter Care Teams Litigation Claim Representative Relationship Specialty Start [place] [address] [place] [address] PCP - General Internal Medicine 01/31/13 [place] [address] [place] [address] Orthopedic Surgery 01/31/13 documented as of this encounter
--- OUTSIDE RECORDS SUMMARY | 2024-08-15 10:00 | XMS_ITS | Continuity of Care Document ---
Author Organization [facility] Address [address] [place] [address] [address] [place] [address] Phone Care Team Providers Care Machine Shop Helper Name Role Phone Naveen Salcedo Unavailable Unavailable Procedures Procedure Date Office/outpatient Visit, Est Office/outpatient Visit, Est Eye Exam, New Patient Refraction Advance Directives Directive Yes / No Effective Date File Name No Information Encounters Encounter Description Practice Location Reason(s) For Visit Diagnoses Date Provider Providers Copied on Encounter Office/outpat ient Visit, [facility], [address] [place] [address] [address], [place], [place], [id number], [place] tel:[phone] [facility] No Information May-1 9-201 0 Krishnasamy Naveen. [address] [address], [place], [place], [facility], [place]. tel:[phone] Office/outpat ient Visit, [facility], [address] [place] [address] [address], [place], [place], [id number], [place] tel:[phone] [facility] No Information May-0 8-200 9 Krishnasamy Naveen. [address] [facility] [address], [place], [address], [place]. tel:[phone] [facility], [address], [place], [place], [id number], [place] tel:[phone] [facility] No Information May-0 7-200 8 Krishnasamy Naveen. [address] [employer] [facility] [address], [place], [address], [place]. tel:[phone] Family History Family Member Type Diagnosis Age At Onset No Information Payers Payer name Insurance type Covered republican ID Authoraviva ramirez(s) [facility] Commercial CI [id number] Social History Type Description Quantity Date Captured [...]
[2024-08-15 10:32] LABS: Prothrombin Time 49.3 Seconds (11.1-14.7)
[2024-08-15 10:51] LABS: INR 5.3
== END 2024-08-15 09:51 | disposition home or self-care (01) ==
PROVIDERS: PCP Clinical Nurse Specialist; Visit Provider Nurse Practitioner
DX: Z79.01 Long term (current) use of anticoagulants (principal)
CPT/HCPCS: 36415; 85610

== ENCOUNTER 2024-08-18 11:56 | Outpatient (CLI) | payer MEDICARE, SELFPAY ==
--- OUTSIDE RECORDS SUMMARY | 2024-08-18 12:00 | XMS_ITS | Clinical Summary ---
Author Organization [facility] Address [address] [facility] [place] [address] Care Team Providers Care Satellite Manager Name Role Phone Frankie Holloway MD Unavailable [phone] Juan Miguel Brown DO Primary Care Provider Source Comments [facility],non-owned Affiliates and Associated Physician Practices is amultiple site organization consisting of ambulatory clinics and hospital sitesin [place], [place], [place] and [place]. This disclosure is being madepursuant to the Care Everywhere program and may not contain all information available regarding this patient. Last updated 17.[facility] Allergies No known active allergies Medications * [...] by mouth 2 times daily Active Multiple Vitamins-Addy als (MULTIVITAMIN & MINERAL PO) Take by [...] this topic Medical Devices Implanted Type Area Embedded Software Development Engineer Device Identifier Shelf Expiration Date Model / Serial / Lot Nabil Bone Capron-G Hv 40/20 Implanted:Qty: 1 on 07/11/2018 by Frankie Holloway MD at [facility] Left: Knee [employer] 09/11/2019 600-15-100 / / [id number] Cmpnt Fem Kn Lt Cr Cmnt Prm Vngrd Intlk Implanted:Qty: 1 on 07/11/2018 by Frankie Holloway MD at [facility] Left: Knee Clau [employer]omet 03/12/2025 [id number] / / [id number] Tray Tib 63mm Kn Cocr I Beam Implanted:Qty: 1 on 07/11/2018 by Frankie Holloway MD at [facility] Left: Knee Clau [employer]omet 02/11/2028 [id number] / / [id number] Brng [id number] Vngrd Arcm Kn Ant Stab Implanted:Qty: 1 on 07/11/2018 by Frankie Holloway MD at [facility] Left: Knee Clau [employer] 04/12/2022 [id number] / / [id number] Cmnt Bone Cblt 40gm Hvisc Strl Implanted:Qty: 1 on 12/12/2018 by Frankie Holloway MD at [facility] Right: Knee [employer] 04/13/2020 600-15-000 / / [id number] Cmpnt Fem Kn Rt Cr Cmnt Prm Vngrd Intlk Implanted:Qty: 1 on 12/12/2018 by Frankie Holloway MD at [facility] Right: Knee Clau [employer] 05/14/2028 [id number] / / [id number] Tray Tib 63mm Kn Cocr I Beam Implanted:Qty: 1 on 12/12/2018 by Frankie Holloway MD at [facility] Right: Knee Clau [employer] 04/13/2028 [id number] / / [id number] Cmpnt Ptlr 28mm 1 Pg Wire Ascnt Arcm Kn Implanted:Qty: 1 on 12/12/2018 by Frankie Hollowya MD at [facility] Right: Knee [employer] 11/12/2023 [id number] / / [id number] Brng [id number] Vngrd Arcm Kn Ant Stab Implanted:Qty: 1 on 12/12/2018 by Frankie Holloway MD at [facility] Right: Knee [employer] 01/11/2022 [id number] / / [id number] Insurance [facility] MANAGED MEDICARE ADV Advance Directives * Full Code (Latest Code Status on File) Date Activated Date Inactivated Comments 12/12/2018 5:20 PM 12/14/2018 3:21 PM * Full Code Date Activated Date Inactivated Comments 07/11/2018 4:03 PM 07/14/2018 1:20 PM Care Teams Satellite Manager Relationship Specialty [place] [address] [place] [address] PCP - General Internal Medicine 01/31/13 [place] [address] [place] [address] Orthopedic Surgery 01/31/13
--- OUTSIDE RECORDS SUMMARY | 2024-08-18 12:00 | XMS_ITS | Continuity of Care Document ---
Author Organization [facility] Address [address] [place] [address] [address] [place] [address] Phone Care Team Providers Care Jerker Name Role Phone Naveen Salcedo Unavailable Unavailable Procedures Procedure Date Office/outpatient Visit, Est Office/outpatient Visit, Est Eye Exam, New Patient Refraction Advance Directives Directive Yes / No Effective Date File Name No Information Encounters Encounter Description Practice Location Reason(s) For Visit Diagnoses Date Provider Providers Copied on Encounter Office/outpat ient Visit, [facility], [address] [place] [address] [address], [place], [place], [id number], [place] tel:[phone] [facility] No Information May-1 9-201 0 Krishnasamy Naveen. [address] [address], [place], [place], [facility], [place]. tel:[phone] Office/outpat ient Visit, [facility], [id number] [place] [address] [address], [place], [place], [id number], [place] tel:[phone] [facility] No Information May-0 8-200 9 Krishnasamy Naveen. [address] [facility] [address], [place], [address], [place]. tel:[phone] [facility], [address], [place], [place], [address], [place] tel:[phone] [facility] No Information May-0 7-200 8 Krishnasamy Naveen. [address] [facility] [address], [place], [address], [place]. tel:[phone] Family History Family Member Type Diagnosis Age At Onset No Information Payers Payer name Insurance type Covered libertarian ID Authoraviva ramirez(s) [facility] Commercial CI [id number] Social History Type Description Quantity Date Captured [...]
--- OUTSIDE RECORDS SUMMARY | 2024-08-18 12:00 | XMS_ITS | Clinical Summary ---
Author Organization [facility] [place] [address] Address [address] [place] [address] Care Team Providers Care Newspaper Clipper Name Role Phone Juan Miguel Brown DO Primary Care Provider [phone] Allergies No known active allergies Medications warfarin [...] 08/15/2022 Assessment & Plan (04/25/2024 1:32 PM CLINIC LPN): Chronic, stable. Update lipid profile. Continue statin therapy with atorvastatin 80 mg daily Assessment & Plan (11/15/2023 2:27 PM CDT): Chronic problem. Currently taking Atorvastatin 80mg, fenofibrate 145mg & Zetia 10mg. Last lipid panel: 08/15/22 RKP=555, YM=467. Will update labs today. Does not mychart. Verified phone #/address to contact re: results. Assessment & Plan (07/09/2023 11:01 AM CDT): Chronic problem. Currently taking Atorvastatin 80mg, fenofibrate 145mg & Zetia 10mg. Last lipid panel: 08/15/22 ISL=310, HY=977. Assessment & Plan (08/15/2022 11:23 AM CDT): Chronic problem. Currently taking Atorvastatin 80mg, fenofibrate 145mg & Zetia 10mg. Last lipid panel: 08/25/21 LDL=69, RS=364. Will update lipid panel today. Verified phone #/address to contact re: results. Hypertension associated with diabetes 02/23/2022 Assessment & Plan (04/25/2024 1:33 PM CLINIC LPN): Chronic, stable. Continue current regimen including Avapro [...] time. Assessment & Plan (03/08/2023 2:09 PM CLINIC LPN): Chronic, well controlled Update MA and GFR Continue Irbesartan Assessment & Plan (08/15/2022 11:21 AM CDT): Chronic problem. Controlled on current Irbesartan 75mg daily, metoprolol 25mg daily, amlodipine 5mg daily, lasix 40mg daily, HCTZ 25mg daily. No changes at this time. Assessment & Plan (02/23/2022 3:29 PM CLINIC LPN): Chronic, well controlled Importance of low salt diet and exercise were discussed Continue current meds Update GFR Update MA Type 2 diabetes mellitus wit h hyperglycemia, without long-term current use of insulin 10/13/2021 Assessment & Plan (04/25/2024 1:32 PM CLINIC LPN): Chronic, stable Increase Mounjaro to 7.5 mg [...] labs. DM eye exam 07/2023 at [facility]. Letter sent to get copy of report. [...] appt later this month at the [facility]. Strive for regular exercise (30min most days) [...] infection. Assessment & Plan (03/08/2023 2:08 PM CLINIC LPN): Hba1c was Lab Results Component Value Date [...] infection. Assessment & Plan (02/23/2022 3:28 PM CLINIC LPN): Well controlled Continue metformin Pt to start [...] 07/09/2023 Assessment & Plan (02/23/2022 3:29 PM CLINIC LPN): Diet and exercise were discussed Body mass index 40.0-44.9, adult ([facility]) 02/23/2022 07/09/2023 Dyslipidemia 02/22/2021 07/09/2023 Morbid obesity with BMI of 40.0-44.9, adult 03/22/2017 07/09/2023 Vaginal burning 08/03/2015 07/09/2023 Encounters Date Type Department Care Team Description 08/08/2024 2:00 PM CDT Office Visit [facility] Medical [facility] at [address] [address] Lyn Acevedo NP Diarrhea, unspecified type (Primary Dx) 06/17/2024 Telephone [facility] Diabetes and Endocrinology [address] [place] [address] Peg Eisenberg NP from Last 3 [...] on file Legal Sex Female 1:14 AM CLINIC LPN Gender Identity Not on file Sexual Orientation Straight 04/25/2024 12 :58 PM CLINIC LPN Obstetrics History Para Term AB IAB SAB [...] cm (4' 11 ) 04/25/2024 1:05 PM CLINIC LPN Body Mass Index 39.39 04/25/2024 1:05 PM CLINIC LPN Plan of Treatment Health Maintenance Due Date [...] Read Routine (OP Routine) 05/07/2024 10:26 AM CLINIC LPN Screening mammogram, encounter for EGFR Routine 04/25/2024 1:38 PM CLINIC LPN Type 2 diabetes mellitus with hyperglycemia, without long-term current use of insulin (HCC) LIPID PANEL Routine 04/25/2024 1:38 PM CLINIC LPN Type 2 diabetes mellitus with hyperglycemia, without long-term current use of insulin (HCC) ALBUMIN CREATININE RATIO, URINE Routine 04/25/2024 1:38 PM CLINIC LPN Type 2 diabetes mellitus with hyperglycemia, without long-term current use of insulin (HCC) POCT HEMOGLOBIN A1C Routine 04/25/2024 1:06 PM CLINIC LPN Type 2 diabetes mellitus with hyperglycemia, without long-term current use of insulin (HCC) HM DIABETES EYE EXAM Routine 02/12/2024 7:56 AM CLINIC LPN from Last 3 Months or Most Recently Relevant to Health Maintenance Results * Screening Mammogram Bilateral W Reinier (05/07/2024 10:26 AM CLINIC LPN) Anatomical Region Laterality Modality Breast Bilateral Mammography Narrative 05/09/2024 2:52 PM CLINIC LPN Examination: Screening Mammogram Bilateral W Reinier: 05/07/24 [...] Result * (ABNORMAL) eGFR (04/25/2024 1:38 PM CLINIC LPN) eGFR 45(L) >=60 mL/min/1. 73 m2 Comment: [...] last reviewed 2021. Blood 04/25/2024 1:38 PM CLINIC LPN 04/25/2024 7:20 PM CLINIC LPN Brigido Collins MD LAB BLOOD ORDERABLES Final Resul t [facility] [address] [facility] [place] [address] * Albumin Creatinine Ratio, Urine (04/25/2024 1:38 PM CLINIC LPN) Albumin Ur <12.0 mg/L Comment: Interpretive Data No reference range established. Current interpretive data was last revised 2018. Creatinine Ur 29.8 mg/dL [facility] Comment: Interpretive Data No reference range established. Current interpretive data was last revised 2018. Albumin Creatinine Ratio, Ur See Comment [facility] Comment:Unable to calculate Urine 04/25/2024 1:38 PM CLINIC LPN 04/25/2024 6:22 PM CLINIC LPN us Brigido Collins MD LAB URINE ORDERABLES Final Resul t [facility] [address] [address] [facility] [place] [address] * (ABNORMAL) Lipid panel (04/25/2024 1:38 PM CLINIC LPN) Cholesterol 147 30 - 199 mg/dL Comment: [...] 5 CERNER CH Blood 04/25/2024 1:38 PM CLINIC LPN 04/25/2024 6:22 PM CLINIC LPN Brigido Collins MD LAB BLOOD ORDERABLES Final Resul t [facility] [address] [facility] [place] [address] * (ABNORMAL) POCT hemoglobin A1c (04/25/2024 1:06 PM CLINIC LPN) Hemoglobin A1C, POC 6.2 4.0 - 5.6 % Comment:none Capillary blood 04/25/2024 1 :06 PM CLINIC LPN Brigido Collins MD POINT OF CARE TEST ORDERABLES Fi nal Result * DIABETES EYE EXAM (02/12/2024 7:56 AM CLINIC LPN) Yifan Vu MD HEALTH MAINTENANCE Edited Result - Final from Last 3 Months or Most Recently Relevant to Health Maintenance Insurance [facility] MEDICARE ADVANTAGE [facility] MEDICARE Address: [facility] [address] [place] [address] [facility] MEDICARE ADVANTAGE [facility] MEDICARE Address: [address] [place] [phone] [facility] MEDICARE ADVANTAGE [facility] MEDIC[facility] Address: [address] [place] [phone] [facility] MEDICARE ADVANTAGE [facility] MEDICARE Address: [facility] [address] [place] [address] Care Teams Newspaper Clipper Relationship Specialty Start Date End Date Juan Miguel Brown DO PCP - General 02/17/16
--- OUTSIDE RECORDS SUMMARY | 2024-08-18 12:01 | XMS_ITS | Encounter Summary ---
Author Organization [facility] Address [address] [facility] [place] [address] Care Team Providers Care Vault Attendant Name Role Phone Frankie Holloway MD Unavailable Juan Miguel Brown DO Primary Care Provider Encounter Details Date Type Department Care Team (Late st Contact Info) Description 01/28/2024 Lab Requisition [facility] - DermPath Lab [address] [facility] [place] [id number] Dilia Melchor MD [address] [facility] [address] [place] [address] Social History Tobacco Use Types Packs/Day Years [...] AM CDT) Case Report Dermatopathology Report Case: [id number] Authorizing Provider: Dilia Melchor MD Collected: 01/28/2024 10:48 AM Ordering Location: [facility] - Received: 01/28/2024 04:51 PM [...] characteristic determined by the Dermatopathology Laboratory at [facility], directed by Dr. Milly Wyatt. These tests need not be, and therefore are not, approved by the [place] Food and Drug Administration. The tests are used for clinical purposes. Billing Codes Specimen Charges Stain Charges 74129 1 12:47 PM CDT DERMATOPATHOLOGY LABORATORY Embedded Images 12:47 PM CDT DERMATOPATHOLOGY LABORATORY Pathology/Cytolo gy TISSUE SPECIMEN FROM SKIN / Unknown 01/28/2024 10:48 AM CDT 01/28/2024 4:51 PM CDT Dilia Melchor MD LAB - PATHOLOGY/CYTOLOGY ORD ERABLES Final Result DERMATOPATHOLOGY LABORATORY [facility] - Department of Dermatology [address] [phone] documented in this encounter Visit Diagnoses Not on filedocumented in this encounter Care Teams Vault Attendant Relationship Specialty [place] [address] [place] [address] PCP - General Internal Medicine 01/31/13 [place] [address] [place] [address] Orthopedic Surgery 01/31/13 documented as of this encounter
--- OUTSIDE RECORDS SUMMARY | 2024-08-18 12:01 | XMS_ITS | Referral Summary ---
Author Organization [facility] [address] Address [address] [place] [address] Care Team Providers Care Finishing Inspector Name Role Phone Juan Miguel Brown DO Primary Care Provider [phone]- [phone] Encounters Date Type Department Care Team Description 08/08/2024 2:00 PM CDT Office Visit [facility] Medical [facility] Care at [address] [address] Lyn Acevedo NP Diarrhea, unspecified type (Primary Dx) 06/17/2024 Telephone [facility] Diabetes and Endocrinology [address] [place] [address] Peg Eisenberg NP from Last 3 [...] 08/15/2022 Assessment & Plan (04/25/2024 1:32 PM DRIVER WHEELCHAIR): Chronic, stable. Update lipid profile. Continue statin therapy with atorvastatin 80 mg daily Assessment & Plan (11/15/2023 2:27 PM CDT): Chronic problem. Currently taking Atorvastatin 80mg, fenofibrate 145mg & Zetia 10mg. Last lipid panel: 08/15/22 KWJ=366, MM=313. Will update labs today. Does not mychart. Verified phone #/address to contact re: results. Assessment & Plan (07/09/2023 11:01 AM CDT): Chronic problem. Currently taking Atorvastatin 80mg, fenofibrate 145mg & Zetia 10mg. Last lipid panel: 08/15/22 RSI=578, AM=988. Assessment & Plan (08/15/2022 11:23 AM CDT): Chronic problem. Currently taking Atorvastatin 80mg, fenofibrate 145mg & Zetia 10mg. Last lipid panel: 08/25/21 LDL=69, GZ=360. Will update lipid panel today. Verified phone #/address to contact re: results. Hypertension associated with diabetes 02/23/2022 Assessment & Plan (04/25/2024 1:33 PM DRIVER WHEELCHAIR): Chronic, stable. Continue current regimen including Avapro [...] time. Assessment & Plan (03/08/2023 2:09 PM DRIVER WHEELCHAIR): Chronic, well controlled Update MA and GFR Continue Irbesartan Assessment & Plan (08/15/2022 11:21 AM CDT): Chronic problem. Controlled on current Irbesartan 75mg daily, metoprolol 25mg daily, amlodipine 5mg daily, lasix 40mg daily, HCTZ 25mg daily. No changes at this time. Assessment & Plan (02/23/2022 3:29 PM DRIVER WHEELCHAIR): Chronic, well controlled Importance of low salt diet and exercise were discussed Continue current meds Update GFR Update MA Type 2 diabetes mellitus wit h hyperglycemia, without long-term current use of insulin 10/13/2021 Assessment & Plan (04/25/2024 1:32 PM DRIVER WHEELCHAIR): Chronic, stable Increase Mounjaro to 7.5 mg [...] labs. DM eye exam 07/2023 at [facility]. Letter sent to get copy of report. [...] appt later this month at the [facility]. Strive for regular exercise (30min most days) [...] infection. Assessment & Plan (03/08/2023 2:08 PM DRIVER WHEELCHAIR): Hba1c was Lab Results Component Value Date [...] infection. Assessment & Plan (02/23/2022 3:28 PM DRIVER WHEELCHAIR): Well controlled Continue metformin Pt to start [...] 07/09/2023 Assessment & Plan (02/23/2022 3:29 PM DRIVER WHEELCHAIR): Diet and exercise were discussed Body mass index 40.0-44.9, adult ([facility]) 02/23/2022 07/09/2023 Dyslipidemia 02/22/2021 07/09/2023 Morbid obesity [...] on file Legal Sex Female 1:14 AM DRIVER WHEELCHAIR Gender Identity Not on file Sexual Orientation Straight 04/25/2024 12 :58 PM DRIVER WHEELCHAIR Last Filed Vital Signs Vital Sign Reading [...] cm (4' 11 ) 04/25/2024 1:05 PM DRIVER WHEELCHAIR Body Mass Index 39.39 04/25/2024 1:05 PM DRIVER WHEELCHAIR Plan of Treatment Not on file Procedures Procedure Name Priority Date/Time Associated Diagnosis Comments SCREENING MAMMOGRAM BILATERAL W REINIER Schedule Routine, Read Routine (OP Routine) 05/07/2024 10:26 AM DRIVER WHEELCHAIR Screening mammogram, encounter for EGFR Routine 04/25/2024 1:38 PM DRIVER WHEELCHAIR Type 2 diabetes mellitus with hyperglycemia, without long-term current use of insulin (HCC) LIPID PANEL Routine 04/25/2024 1:38 PM DRIVER WHEELCHAIR Type 2 diabetes mellitus with hyperglycemia, without long-term current use of insulin (HCC) ALBUMIN CREATININE RATIO, URINE Routine 04/25/2024 1:38 PM DRIVER WHEELCHAIR Type 2 diabetes mellitus with hyperglycemia, without long-term current use of insulin (HCC) POCT HEMOGLOBIN A1C Routine 04/25/2024 1:06 PM DRIVER WHEELCHAIR Type 2 diabetes mellitus with hyperglycemia, without long-term current use of insulin (HCC) HM DIABETES EYE EXAM Routine 02/12/2024 7:56 AM DRIVER WHEELCHAIR from Last 3 Months or Most Recently Relevant to Health Maintenance Results * Screening Mammogram Bilateral W Reinier (05/07/2024 10:26 AM DRIVER WHEELCHAIR) Anatomical Region Laterality Modality Breast Bilateral Mammography Narrative 05/09/2024 2:52 PM DRIVER WHEELCHAIR Examination: Screening Mammogram Bilateral W Reinier: 05/07/24 [...] Result * (ABNORMAL) eGFR (04/25/2024 1:38 PM DRIVER WHEELCHAIR) eGFR 45(L) >=60 mL/min/1. 73 m2 Comment: [...] last reviewed 2021. Blood 04/25/2024 1:38 PM DRIVER WHEELCHAIR 04/25/2024 7:20 PM DRIVER WHEELCHAIR us Brigido Collins MD LAB BLOOD ORDERABLES Final Resul t [facility] [address] [place] [address] * Albumin Creatinine Ratio, Urine (04/25/2024 1:38 PM DRIVER WHEELCHAIR) Albumin Ur <12.0 mg/L Comment: Interpretive Data No reference range established. Current interpretive data was last revised 2018. Creatinine Ur 29.8 mg/dL [facility] Comment: Interpretive Data No reference range established. Current interpretive data was last revised 2018. Albumin Creatinine Ratio, Ur See Comment - [facility] Comment:Unable to calculate Urine 04/25/2024 1:38 PM DRIVER WHEELCHAIR 04/25/2024 6:22 PM DRIVER WHEELCHAIR us Brigido Collins MD LAB URINE ORDERABLES Final Resul t Performing Organization Address City/State/[facility] Co de Phone Number KELSIEMILY [facility] [address] [place] [address] * (ABNORMAL) Lipid panel (04/25/2024 1:38 PM DRIVER WHEELCHAIR) Cholesterol 147 30 - 199 mg/dL Comment: [...] 5 CEREMILY CH Blood 04/25/2024 1:38 PM DRIVER WHEELCHAIR 04/25/2024 6:22 PM DRIVER WHEELCHAIR Brigido Collins MD LAB BLOOD ORDERABLES Final Resul t [facility] [address] [place] [address] * (ABNORMAL) POCT hemoglobin A1c (04/25/2024 1:06 PM DRIVER WHEELCHAIR) Hemoglobin A1C, POC 6.2 4.0 - 5.6 % Comment:none Capillary blood 04/25/2024 1 :06 PM DRIVER WHEELCHAIR Birgido Collins MD POINT OF CARE TEST ORDERABLES Fi nal Result * DIABETES EYE EXAM (02/12/2024 7:56 AM DRIVER WHEELCHAIR) Yifan Vu MD HEALTH MAINTENANCE Edited Result - Final from Last 3 Months or Most Recently Relevant to Health Maintenance Insurance [facility] MEDICARE [place] [id number] [facility] MEDICARE ADVANTAGE [place] [address] [facility] MEDICARE ADVANTAGE [place] [id number] [facility] MEDICARE ADVANTAGE Care Teams Finishing Inspector Relationship Specialty Start Date End Date Juan Miguel Brown DO PCP - General 02/17/16
--- OUTSIDE RECORDS SUMMARY | 2024-08-18 12:01 | XMS_ITS | Encounter Summary ---
Author Organization [facility] Address [address] [place] [address] Care Team Providers Care Assistant Shift Supervisor Name Role Phone Frankie Holloway MD Unavailable Juan Miguel Brown DO Primary Care Provider Encounter Details Date Type Department Care Team (Late st Contact Info) Description 02/16/2020 Lab Requisition [facility] [address] [facility], [place] [address] Dilia Melchor MD [address] [facility] 3 [place] [address] Social History Tobacco Use Types Packs/Day Years [...] Comments DERMATOPATHOLOGY Routine 02/12/2020 12:0 0 AM RF TECHNICIAN documented in this encounter Results * DERMATOPATHOLOGY (02/12/2020 12:00 AM RF TECHNICIAN) Case Report Dermatopathology Report Case: [id number] Authorizing Provider: Dilia Melchor MD Collected: 02/12/2020 12:00 AM Ordering Location: [facility] DermPath Lab Received: 02/16/2020 10:49 AM Pathologist: Heide Wyatt MD Specimens: A) - Skin, left cheek B) - Skin, right ankle 0 4:43 PM RF TECHNICIAN DERMATOPATHOLOGY LABORATORY Final Diagnosis Specimen A. SKIN, left cheek: ACTINIC KERATOSIS, LICHENOID (L57.0) Specimen B. SKIN, right ankle: STASIS DERMATITIS (L30.8) DERMAL FIBROSIS (L90.5) 0 4:43 PM RF TECHNICIAN DERMATOPATHOLOGY LABORATORY Clinical History A: R/O AK vs SCC. [place] papule. B: R/O DF vs SCC. [place] papule. 0 4:43 PM RF TECHNICIAN DERMATOPATHOLOGY LABORATORY Gross Description Specimen A: Received is one formalin filled container labeled with the patient's name and designated left cheek. The specimen consists of a shave measuring [id number]. Jar 0. Specimen B: Received is one formalin filled container labeled with the patient's name and designated right ankle. The specimen consists of a shave measuring [id number]. Jar 0. 0 4:43 PM [facility] DER[facility]ORY Microscopic Description Specimen A. SKIN, [...] in the sections examined. 0 4:43 PM [facility] DERMAT[facility] LABORATORY Disclaimer An external and internal [...] purposes. Billing Codes Specimen Charges Stain Charges 90827 40967 1 1 0 4:43 PM [facility] DERMAT[facility] LABORATORY Embedded Images 0 4:43 PM [facility] DERMAT[facility] LABORATORY Pathology/Cytology TISSUE SPECIMEN FROM SKIN / Unknown 02/12/2020 02/16/2020 10:49 AM RF TECHNICIAN Miscellaneous samples (specimen) TISSUE SPECIMEN FROM SKIN / Unknown 02/12/2020 02/16/2020 10:49 AM RF TECHNICIAN Dilia Melchor MD LAB - PATHOLOGY/CYTOLOGY ORD ERABLES Final Result DERMATOPATHOLOGY LABORATORY [facility] - Department of Dermatology [address], [address] [phone] documented in this encounter Visit Diagnoses Not on filedocumented in this encounter Care Teams Assistant Shift Supervisor Relationship Specialty [place] [address] [place] [address] PCP - General Internal Medicine 01/31/13 [place] [address] [place] [address] Orthopedic Surgery 01/31/13 documented as of this encounter
[2024-08-18 12:22] LABS: Anion Gap 11 mmol/L (4-12); Blood Urea Nitrogen 31 mg/dL (7-17); Calcium 10.1 mg/dL (8.4-10.2); Carbon Dioxide 30 mmol/L (22-30); Chloride 99 mmol/L (98-107); Estimated Glomerular Filt Rate 48; Glucose 96 mg/dL (65-110); Potassium 3.5 mmol/L (3.4-5.0); Sodium 140 mmol/L (137-145)
[2024-08-18 12:39] LABS: INR 2.6; Prothrombin Time 28.5 Seconds (11.1-14.7)
== END 2024-08-18 11:57 | disposition home or self-care (01) ==
PROVIDERS: PCP Clinical Nurse Specialist; Visit Provider Clinical Nurse Specialist
DX: E87.6 Hypokalemia (principal); Z79.01 Long term (current) use of anticoagulants
CPT/HCPCS: 36415; 80048; 85610

== ENCOUNTER 2024-10-31 09:16 | Outpatient (NON) | payer MEDICARE, SELFPAY ==
--- OUTSIDE RECORDS SUMMARY | 2024-10-31 09:19 | XMS_ITS | Clinical Summary ---
Author Organization [facility] Address [address] [place] [place] [address] Care Team Providers Care Applications Development Analyst Name Role Phone Frankie Holloway MD Unavailable [phone] Juan Miguel Brown DO Primary Care Provider Source Comments [facility],non-owned Affiliates and Associated Physician Practices is amultiple site organization consisting of ambulatory clinics and hospital sitesin [place], [place], [place] and [place]. This disclosure is being madepursuant to the Care Everywhere program and may not contain all information available regarding this patient. Last updated 17.[facility] Allergies No known active allergies Medications * [...] by mouth 2 times daily Active Multiple Vitamins-Sweet Grass als (MULTIVITAMIN & MINERAL PO) Take by [...] 9:25 AM CDT Height 148.6 cm (4' 10.5) 12/12/2018 9:25 AM CD T Body Mass [...] MEDICARE AWV CALENDAR YEAR 2024 INFLUENZA VACCINE (#1) 2024 HEPATITIS B VACCINE Aged Out No [...] this topic Medical Devices Implanted Type Area Weather Forecaster Device Identifier Shelf Expiration Date Model / Serial / Lot Nabil Bone Olanta-G Hv 40/20 Implanted:Qty: 1 on 07/11/2018 by Frankie Holloway MD at [facility] Left: Knee [employer] 09/11/2019 600-15-100 / / [id number] Cmpnt Fem Kn Lt Cr Cmnt Prm Vngrd Intlk Implanted:Qty: 1 on 07/11/2018 by Frankie Holloway MD at [facility] Left: Knee Clau Biomet 03/12/2025 [id number] / / [id number] Tray Tib 63mm Kn Cocr I Beam Implanted:Qty: 1 on 07/11/2018 by Frankie Holloway MD at [facility] Left: Knee Clau Biomet 02/11/2028 [id number] / / [id number] Brng 56edz50om Vngrd Arcm Kn Ant Stab Implanted:Qty: 1 on 07/11/2018 by Frankie Holloway MD at [facility] Left: Knee Clau [employer]omet 04/12/2022 [id number] / / [id number] Cmnt Bone Cblt 40gm Hvisc Strl Implanted:Qty: 1 on 12/12/2018 by Frankie Holloway MD at [facility] Right: Knee [employer] 04/13/2020 600-15-000 / / [id number] Cmpnt Fem Kn Rt Cr Cmnt Prm Vngrd Intlk Implanted:Qty: 1 on 12/12/2018 by Frankie Holloway MD at [facility] Right: Knee Clau [employer] 05/14/2028 [id number] / / [id number] Tray Tib 63mm Kn Cocr I Beam Implanted:Qty: 1 on 12/12/2018 by Frankie Holloway MD at [facility] Right: Knee Clau [employer] 04/13/2028 [id number] / / [id number] Cmpnt Ptlr 28mm 1 Pg Wire Ascnt Arcm Kn Implanted:Qty: 1 on 12/12/2018 by Frankie Holloway MD at [facility] Right: Knee Clau [employer] 11/12/2023 [id number] / / [id number] Brng [id number] Vngrd Arcm Kn Ant Stab Implanted:Qty: 1 on 12/12/2018 by Frankie Holloway MD at [facility] Right: Knee Clau [employer] 01/11/2022 [id number] / / [id number] Insurance [facility] MANAGED MEDICARE ADV Advance Directives * Full Code (Latest Code Status on File) Date Activated Date Inactivated Comments 12/12/2018 5:20 PM 12/14/2018 3:21 PM * Full Code Date Activated Date Inactivated Comments 07/11/2018 4:03 PM 07/14/2018 1:20 PM Care Teams Applications Development Analyst Relationship Specialty [place] [address] [place] [address] PCP - General Internal Medicine 01/31/13 [place] [address] [place] [address] Orthopedic Surgery 01/31/13
--- OUTSIDE RECORDS SUMMARY | 2024-10-31 09:19 | XMS_ITS | Continuity of Care Document ---
Author Organization [facility] Address [address] [place] [address] [address] [place] [address] Phone Care Team Providers Care Mint Machine Operator Name Role Phone Naveen Salcedo Unavailable Unavailable Procedures Procedure Date Office/outpatient Visit, Est Office/outpatient Visit, Est Eye Exam, New Patient Refraction Advance Directives Directive Yes / No Effective Date File Name No Information Encounters Encounter Description Practice Location Reason(s) For Visit Diagnoses Date Provider Providers Copied on Encounter Office/outpat ient Visit, [facility] [place] [place], [address] [place] [address] [address], [place], [place], [id number], [place] tel:[phone] [facility] No Information May-1 9-201 0 Krishnasamy Naveen. [address] [address], [place], [place], [facility], [place]. tel:[phone] Office/outpat ient Visit, [facility] [place], [place], [address] [place] [address] [address], [place], [place], [id number], [place] tel:[phone] [facility] No Information May-0 8-200 9 Krishnasamy Naveen. [address] [facility] [address], [place], [address], [place]. tel:[phone] [facility], [address], [place], [place], [id number], [place] tel:[phone] [facility] No Information May-0 7-200 8 Krishnasamy Naveen. [address] [facility] [address], [place], [address], [place]. tel:[phone] Family History Family Member Type Diagnosis Age At Onset No Information Payers Payer name Insurance type Covered republican ID Authoraviva ramirez(s) [facility] Commercial CI [id number] Social History Type Description Quantity Date Captured [...]
--- OUTSIDE RECORDS SUMMARY | 2024-10-31 09:19 | XMS_ITS | Referral Summary ---
Author Organization [facility] [address] [facility] [address] Address [address] [place] [address] Care Team Providers Care Roofing Tile Sorter Name Role Phone Juan Miguel Brown DO Primary Care Provider [phone] Encounters Date Type Department Care Team Description 10/20/2024 1:00 PM CDT Office Visit [facility] Diabetes and Endocrinology [address] [place] [address] Peg Eisenberg NP Type 2 diabetes mellitus with hyperglycemia, without long-term current use of insulin (HCC) (Primary Dx); Hypertension associated with diabetes (HCC); Hyperlipidemia associated with type 2 diabetes mellitus (HCC); Class 2 severe obesity due to excess calories with serious comorbidity and body mass index (BMI) of 39.0 to 39.9 in adult (HCC) 08/08/2024 2:00 PM CDT Office Visit [facility] at [address] [address] Lny Acevedo NP Diarrhea, unspecified type (Primary Dx) from Last 3 Months Allergies No known active allergies Medications warfarin (COUMADIN) 2.5 mg tablet take 1 tablet (2.5MG) by oral route every day 0 Active multivitamin capsule take 1 capsule by oral route every day 0 Active furosemide (LASIX) 40 mg tablet take 1 Tablet (40MG) by oral route every day 0 Active fenofibrate nanocrystallized (TRICOR) 145 mg tablet take 1 tablet (145MG) by oral route every day 0 Active atorvastatin (LIPITOR) 80 mg tablet take 1 tablet (80MG) by oral route every day 0 Active aspirin (ASPIRIN LOW DOSE) 81 mg tablet take 1 Tablet (81MG) by oral route every day 0 Active potassium chloride ER (KLOR-CON M10) 10 mEq CR tablet take 1 by Oral route every day 0 Active ezetimibe (ZETIA) 10 mg tablet take 1 Tablet (10MG) by oral route every day 0 Active warfarin (COUMADIN) 1 mg tablet take 1 tablet (1MG) by oral route every day 0 Active amLODIPine (NORVASC) 5 mg tablet take 1 1/2 tablet by oral route every day 0 Active metoprolol (LOPRESSOR) 25 mg tablet take 1/2 Tablet by oral route 2 times every day 30 Syringe 6 Active irbesartan (AVAPRO) 75 mg tabletIndications:H /O mechanical aortic valve replacement Take 1 tablet (75 mg total) by mouth nightly Active hydroCHLOROthiazide (HYDRODIURIL) 25 mg tabletIndications:H /O mechanical aortic valve replacement Take 1 tablet (25 mg total) by mouth daily Active cholecalciferol (VITAMIN D-3) 25 mcg (1,000 unit) tablet Take 1 tablet (1,000 Units total) by mouth daily Active escitalopram (LEXAPRO) 10 mg tablet Take 1 tablet (10 mg total) by mouth daily Active potassium chloride ER 10 mEq CR tablet Active warfarin (COUMADIN) 3 mg tablet Take 1 tablet (3 mg total) by mouth daily Active blood-glucose meter kit Use daily or as directed for monitoring of diabetes 1 kit Active blood glucose diagnostic (glucose blood) strip Check blood sugar as directed 50 each Active metFORMIN (GLUCOPHAGE) 500 mg tablet Take 1 tablet (500 mg total) by mouth 2 (two) times a day with meals 180 tablet 3 Active tirzepatide (Mounjaro) 2.5 mg/0.5 mL pen injector injectionIndication s:type 2 diabetes mellitus Inject 0.5 mL (2.5 mg total) under the skin once a week 6 mL 3 025 2025 Active tirzepatide (Mounjaro) 7.5 mg/0.5 mL pen injector Inject 7.5 mg under the skin once a week 2 mL 6 025 2024 Discontinued Active Problems Problem Noted Date Diagnosed Date Class 2 severe obesity due t o excess calories with serious comorbidity and body mass index (BMI) of 39.0 to 39.9 in adult 07/09/2023 Assessment & Plan (10/20/2024 1:35 PM CDT): Discussed healthy diet and importance of regular physical activity (20- 30min/day, 150min/wk). Will restart Mounjaro 2.5mg weekly. Currently using stationary pedaler 10min daily. Assessment & Plan (07/09/2023 11:22 AM CDT): Discussed healthy diet and importance of regular physical activity (20- 30min/day, 150min/wk). Has lost 15# since 02/2023. BMI down 2 points. Taking Mounjaro 5mg weekly Using Nu-Step 4-5 min/day. Staying active. Hyperlipidemia associated with type 2 diabetes cintia santana 08/15/2022 Assessment & Plan (10/20/2024 1:16 PM CDT): Chronic problem. Currently taking Atorvastatin 80mg, fenofibrate 145mg & Zetia 10mg. Last lipid panel: 04/25/24 LDL=81, ZQ=074. Assessment & Plan (04/25/2024 1:32 PM SMOKE INSPECTOR): Chronic, stable. Update lipid profile. Continue statin therapy with atorvastatin 80 mg daily Assessment & Plan (11/15/2023 2:27 PM CDT): Chronic problem. Currently taking Atorvastatin 80mg, fenofibrate 145mg & Zetia 10mg. Last lipid panel: 08/15/22 WZJ=557, KN=896. Will update labs today. Does not mychart. Verified phone #/address to contact re: results. Assessment & Plan (07/09/2023 11:01 AM CDT): Chronic problem. Currently taking Atorvastatin 80mg, fenofibrate 145mg & Zetia 10mg. Last lipid panel: 08/15/22 PRX=213, MJ=606. Assessment & Plan (08/15/2022 11:23 AM CDT): Chronic problem. Currently taking Atorvastatin 80mg, fenofibrate 145mg & Zetia 10mg. Last lipid panel: 08/25/21 LDL=69, UW=532. Will update lipid panel today. Verified phone #/address to contact re: results. Hypertension associated with diabetes 02/23/2022 Assessment & Plan (10/20/2024 1:18 PM CDT): Chronic problem. Controlled on current Irbesartan 75mg daily, metoprolol 25mg (1/2 tab daily), amlodipine 5mg daily, lasix 40mg daily, HCTZ 25mg daily. Assessment & Plan (04/25/2024 1:33 PM SMOKE INSPECTOR): Chronic, stable. Continue current regimen including Avapro [...] time. Assessment & Plan (03/08/2023 2:09 PM SMOKE INSPECTOR): Chronic, well controlled Update MA and GFR Continue Irbesartan Assessment & Plan (08/15/2022 11:21 AM CDT): Chronic problem. Controlled on current Irbesartan 75mg daily, metoprolol 25mg daily, amlodipine 5mg daily, lasix 40mg daily, HCTZ 25mg daily. No changes at this time. Assessment & Plan (02/23/2022 3:29 PM SMOKE INSPECTOR): Chronic, well controlled Importance of low salt diet and exercise were discussed Continue current meds Update GFR Update MA Type 2 diabetes mellitus wit h hyperglycemia, without long-term current use of insulin 10/13/2021 Assessment & Plan (10/20/2024 1:28 PM CDT): Chronic problem. A1c cornell from 6.2% 04/25/24 to now 6.6%. To let us know if Mounjaro is still too expensive. To ask pharmacist if Ozempic or Trulicity would be more feasible. We'll restart the Mounjaro as she thinks your deductible has been met for the year. Current medications: Metformin 500mg twice daily with meals Mounjaro 2.5 mg weekly (has not had since 04/2024) UTD on all other labs. UTD on DM eye exam (02/12/24 no DMR/DME [facility] in [place]) Strive for regular exercise (30min most days) and diet (get at least 4-5 servings of fruit and veggies daily, avoid processed foods, increase lean protein intake and decrease carb portions as well as fruit juices, regular soda & desserts). Watch carbs and simple sugars. Check the blood sugar: weekly Check the feet daily for skin breakdown and infection. Assessment & Plan (04/25/2024 1:32 PM SMOKE INSPECTOR): Chronic, stable Increase Mounjaro to 7.5 mg [...] labs. DM eye exam 07/2023 at [facility]. Letter sent to get copy of report. [...] appt later this month at the [facility]. Strive for regular exercise (30min most days) [...] infection. Assessment & Plan (03/08/2023 2:08 PM SMOKE INSPECTOR): Hba1c was Lab Results Component Value Date [...] infection. Assessment & Plan (02/23/2022 3:28 PM SMOKE INSPECTOR): Well controlled Continue metformin Pt to start [...] 07/09/2023 Assessment & Plan (02/23/2022 3:29 PM SMOKE INSPECTOR): Diet and exercise were discussed Body mass index 40.0-44.9, adult ([facility]) 02/23/2022 07/09/2023 Dyslipidemia 02/22/2021 07/09/2023 Morbid obesity [...] on file Legal Sex Female 1:14 AM SMOKE INSPECTOR Gender Identity Not on file Sexual Orientation Straight 04/25/2024 12 :58 PM SMOKE INSPECTOR Last Filed Vital Signs Vital Sign Reading Time Taken Comments Blood Pressure 106/66 10/20/2024 12:52 PM CDT Pulse 65 10/20/2024 12:52 PM CDT Temperature 36.6 C (97.8 F) 08/08/2024 2:04 PM CDT Respiratory Rate 18 10/20/2024 12:52 PM CDT Oxygen Saturation 97% 08/08/2024 2:04 PM CDT Inhaled Oxygen Concentration - - Weight 89 kg (196 lb 4.8 oz) 10/20/2024 12:52 PM CDT Height 149.9 cm (4' 11) 10/20/2024 12:52 PM CDT Body Mass Index 39.65 10/20/2024 12:52 PM CDT Plan of Treatment Not on file Procedures Procedure Name Priority Date/Time Associated Diagnosis Comments POCT GLUCOSE Routine 10/20/2024 12:55 PM CDT Type 2 diabetes mellitus with hyperglycemia, without long-term current use of insulin (HCC) POCT HEMOGLOBIN A1C Routine 10/20/2024 12:55 PM CDT Type 2 diabetes mellitus with hyperglycemia, without long-term current use of insulin (HCC) SCREENING MAMMOGRAM BILATERAL W REINIER Schedule Routine, Read Routine (OP Routine) 05/07/2024 10:26 AM SMOKE INSPECTOR Screening mammogram, encounter for EGFR Routine 04/25/2024 1:38 PM SMOKE INSPECTOR Type 2 diabetes mellitus with hyperglycemia, without long-term current use of insulin (HCC) LIPID PANEL Routine 04/25/2024 1:38 PM SMOKE INSPECTOR Type 2 diabetes mellitus with hyperglycemia, without long-term current use of insulin (HCC) ALBUMIN CREATININE RATIO, URINE Routine 04/25/2024 1:38 PM SMOKE INSPECTOR Type 2 diabetes mellitus with hyperglycemia, without long-term current use of insulin (HCC) DIABETES EYE EXAM Routine 02/12/2024 7:56 AM SMOKE INSPECTOR from Last 3 Months or Most Recently Relevant to Health Maintenance Results * (ABNORMAL) POCT hemoglobin A1c (10/20/2024 12:55 PM CDT) Hemoglobin A1C, POC 6.6(A) 4.0 - 5.6 % Capillary blood 10/20/2024 1 2:55 PM CDT us Peg Eisenberg PROPOSAL REVIEW ANALYST POINT OF CARE TEST ORDERA BLES Final Result * (ABNORMAL) POCT glucose (10/20/2024 12:55 PM CDT) Glucose Blood, POC 146 Normal Fasting 70 - 100, Random <200 mg/dL Comment:FBG Blood 10/20/2024 12:5 5 PM CDT us Peg Eisenberg PROPOSAL REVIEW ANALYST POINT OF CARE TEST ORDERA BLES Final Result * Screening Mammogram Bilateral W Reinier (05/07/2024 10:26 AM SMOKE INSPECTOR) Anatomical Region Laterality Modality Breast Bilateral Mammography Narrative 05/09/2024 2:52 PM SMOKE INSPECTOR Examination: Screening Mammogram Bilateral W Reinier: 05/07/24 [...] for bilateral Overall Assessment: 2 - Benign Self Screening Mammogram IMG MAMMO PROCEDURES Fi nal Result * (ABNORMAL) eGFR (04/25/2024 1:38 PM SMOKE INSPECTOR) eGFR 45(L) >=60 mL/min/1. 73 m2 Comment: [...] last reviewed 2021. Blood 04/25/2024 1:38 PM SMOKE INSPECTOR 04/25/2024 7:20 PM SMOKE INSPECTOR Brigido Collins MD LAB BLOOD ORDERABLES Final Resul t [facility] [address] Department [place] [address] * Albumin Creatinine Ratio, Urine (04/25/2024 1:38 PM SMOKE INSPECTOR) Albumin Ur <12.0 mg/L Comment: Interpretive Data No reference range established. Current interpretive data was last revised 2018. Creatinine Ur 29.8 mg/dL ESTELA CLARK Comment: Interpretive Data No reference range established. Current interpretive data was last revised 2018. Albumin Creatinine Ratio, Ur See Comment 1 - 29 [facility] Comment:Unable to calculate Urine 04/25/2024 1:38 PM SMOKE INSPECTOR 04/25/2024 6:22 PM SMOKE INSPECTOR us Brigido Collins MD LAB URINE ORDERABLES Final Resul t ESTELA [address] Department [place] [address] * (ABNORMAL) Lipid panel (04/25/2024 1:38 PM SMOKE INSPECTOR) Cholesterol 147 30 - 199 mg/dL Comment: [...] last revised on 2017. Chol/HDL ratio 5 [facility] Blood 04/25/2024 1:38 PM SMOKE INSPECTOR 04/25/2024 6:22 PM SMOKE INSPECTOR us Farid Dennis MD LAB BLOOD ORDERABLES Final Resul t [facility] [address] [place] [address] * DIABETES EYE EXAM (02/12/2024 7:56 AM SMOKE INSPECTOR) Historical Provider HEALTH MAINTENANCE Edited Result - Final from Last 3 Months or Most Recently Relevant to Health Maintenance Insurance [facility] MEDICARE ADVANTAGE [facility] MEDICARE ADVANTAGE [facility] MEDICARE ADVANTAGE [facility] MEDICARE ADVANTAGE Care Teams Roofing Tile Sorter Relationship Specialty Start Date End Date Juan Miguel Brown DO PCP - General 02/17/16
--- OUTSIDE RECORDS SUMMARY | 2024-10-31 09:19 | XMS_ITS | Encounter Summary ---
Author Organization [facility] Address [address] [place] [address] Care Team Providers Care Visitor Services Assistant Name Role Phone Frankie Holloway MD Unavailable Juan Miguel Brown DO Primary Care Provider Encounter Details Date Type Department Care Team (Late st Contact Info) Description 01/28/2024 Lab Requisition [facility] - DermPath Lab [address] [facility], [place] [id number] Dilia Melchor MD [address] [facility] [address] [place] [address] Social History Tobacco Use Types Packs/Day Years [...] AM CDT) Case Report Dermatopathology Report Case: [id number] Authorizing Provider: Dilia Melchor MD Collected: 01/28/2024 10:48 AM Ordering Location: [facility] - Received: 01/28/2024 04:51 PM DermPath Lab Pathologist: Cathy Mora MD Specimen: Skin, left cheek 12:47 PM CDT DERMATOPATHOLOGY LABORATORY Final Diagnosis Specimen A. 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 Milly Wyatt. These tests need not be, and therefore are not, approved by the [place] Food and Drug Administration. The tests are used for clinical purposes. Billing Codes Specimen Charges Stain Charges 64694 1 12:47 PM CDT DERMATOPATHOLOGY LABORATORY Embedded Images 12:47 PM CDT DERMATOPATHOLOGY LABORATORY Pathology/Cytolo gy TISSUE SPECIMEN FROM SKIN / Unknown 01/28/2024 10:48 AM CDT 01/28/2024 4:51 PM CDT Dilia Melchor MD LAB - PATHOLOGY/CYTOLOGY ORD ERABLES Final Result DERMATOPATHOLOGY LABORATORY [facility] - Department of Dermatology [address], [address] [phone] documented in this encounter Visit Diagnoses Not on filedocumented in this encounter Care Teams Visitor Services Assistant Relationship Specialty Start [place] [address] [place] [address] PCP - General Internal Medicine 01/31/13 [place] [address] [place] [address] Orthopedic Surgery 01/31/13 documented as of this encounter
--- OUTSIDE RECORDS SUMMARY | 2024-10-31 09:19 | XMS_ITS | Clinical Summary ---
Author Organization [facility] [place] [address] Address [address] [place] [address] Care Team Providers Care Residential Building Inspector Name Role Phone Juan Miguel Brown DO Primary Care Provider [phone] Allergies No known active allergies Medications warfarin [...] tablet by oral route every day 0 014 Active metoprolol (LOPRESSOR) 25 mg tablet take 1/2 Tablet by oral route 2 times every day 30 Syringe 6 013 Active irbesartan (AVAPRO) 75 mg tabletIndications:H /O [...] blood sugar as directed 50 each 11 Active metFORMIN (GLUCOPHAGE) 500 mg tablet Take 1 tablet (500 mg total) by mouth 2 (two) times a day with meals 180 tablet 3 025 Active tirzepatide (Mounjaro) 2.5 mg/0.5 mL pen [...] Zetia 10mg. Last lipid panel: 04/25/24 LDL=81, HC=371. Assessment & Plan (04/25/2024 1:32 PM NEONATAL INTENSIVE CARE UNIT NURSE): Chronic, stable. Update lipid profile. Continue statin therapy with atorvastatin 80 mg daily Assessment & Plan (11/15/2023 2:27 PM CDT): Chronic problem. Currently taking Atorvastatin 80mg, fenofibrate 145mg & Zetia 10mg. Last lipid panel: 08/15/22 TEF=707, RZ=887. Will update labs today. Does not mychart. Verified phone #/address to contact re: results. Assessment & Plan (07/09/2023 11:01 AM CDT): Chronic problem. Currently taking Atorvastatin 80mg, fenofibrate 145mg & Zetia 10mg. Last lipid panel: 08/15/22 IGT=050, PX=504. Assessment & Plan (08/15/2022 11:23 AM CDT): Chronic problem. Currently taking Atorvastatin 80mg, fenofibrate 145mg & Zetia 10mg. Last lipid panel: 08/25/21 LDL=69, WR=145. Will update lipid panel today. Verified phone #/address to contact re: results. Hypertension associated with diabetes 02/23/2022 Assessment & Plan (10/20/2024 1:18 PM CDT): Chronic problem. Controlled on current Irbesartan 75mg daily, metoprolol 25mg (1/2 tab daily), amlodipine 5mg daily, lasix 40mg daily, HCTZ 25mg daily. Assessment & Plan (04/25/2024 1:33 PM NEONATAL INTENSIVE CARE UNIT NURSE): Chronic, stable. Continue current regimen including Avapro [...] time. Assessment & Plan (03/08/2023 2:09 PM NEONATAL INTENSIVE CARE UNIT NURSE): Chronic, well controlled Update MA and GFR Continue Irbesartan Assessment & Plan (08/15/2022 11:21 AM CDT): Chronic problem. Controlled on current Irbesartan 75mg daily, metoprolol 25mg daily, amlodipine 5mg daily, lasix 40mg daily, HCTZ 25mg daily. No changes at this time. Assessment & Plan (02/23/2022 3:29 PM NEONATAL INTENSIVE CARE UNIT NURSE): Chronic, well controlled Importance of low salt [...] (02/12/24 no DMR/DME [facility] [place]) Strive for regular exercise (30min most days) [...] infection. Assessment & Plan (04/25/2024 1:32 PM NEONATAL INTENSIVE CARE UNIT NURSE): Chronic, stable Increase Mounjaro to 7.5 mg [...] labs. DM eye exam 07/2023 at [facility]. Letter sent to get copy of report. [...] appt later this month at the [facility]. Strive for regular exercise (30min most days) [...] infection. Assessment & Plan (03/08/2023 2:08 PM NEONATAL INTENSIVE CARE UNIT NURSE): Hba1c was Lab Results Component Value Date [...] infection. Assessment & Plan (02/23/2022 3:28 PM NEONATAL INTENSIVE CARE UNIT NURSE): Well controlled Continue metformin Pt to start [...] 07/09/2023 Assessment & Plan (02/23/2022 3:29 PM NEONATAL INTENSIVE CARE UNIT NURSE): Diet and exercise were discussed Body mass index 40.0-44.9, adult ([facility]) 02/23/2022 07/09/2023 Dyslipidemia 02/22/2021 07/09/2023 Morbid obesity with BMI of 40.0-44.9, adult 03/22/2017 07/09/2023 Vaginal burning 08/03/2015 07/09/2023 Encounters Date Type Department Care Team Description 10/20/2024 1:00 PM CDT Office Visit [facility] Diabetes [facility] Endocrinology [address] [place] [id number] Peg Eisenberg NP Type 2 diabetes mellitus with hyperglycemia, without long-term current use of insulin ([facility]) (Primary Dx); Hypertension associated with diabetes ([facility]); Hyperlipidemia associated with type 2 diabetes mellitus ([facility]); Class 2 severe obesity due to excess calories with serious comorbidity and body mass index (BMI) of 39.0 to 39.9 in adult ([facility]) 08/08/2024 2:00 PM CDT Office Visit [facility] at [address] [phone] Lyn Acevedo NP Diarrhea, unspecified type (Primary Dx) from Last 3 Months Surgical History Surgery [...] on file Legal Sex Female 1:14 AM NEONATAL INTENSIVE CARE UNIT NURSE Gender Identity Not on file Sexual Orientation Straight 04/25/2024 12 :58 PM NEONATAL INTENSIVE CARE UNIT NURSE Obstetrics History Para Term AB IAB SAB [...] 10/20/2024 12:52 PM CDT Plan of Treatment Health Maintenance Due Date Last Done Comments Hepatitis C Screening 1945 Osteoporosis Screening-Bone Density Scan 1945 DTaP/Tdap/Td Vaccine (1 - Tdap) 1957 Hepatitis B Screening 1964 Pneumococcal vaccine 65+ (1 of 2 - PCV) 1965 Zoster Vaccine (1 of 2) 1996 Well Visit 65+ 10/17/2011 Influenza Vaccine (#1) 2024 7, 03/14/2016, 01/05/2014 Hemoglobin A1C 04/22/2025 10/20/2024, 04/09, 11/15/2023, Additional history exists Albumin Creatinine Ratio, Urine 04/25/2025 04/25/2024, 03/08/2023, 02/23/2022 Depression Screening 04/25/2025 04/25/2024, 03/08/20 23 Fall Risk Assessment 04/25/2025 04/25/2024, 03/08/20 23 Lipid Panel 04/25/2025 04/25/2024, 08/0 11/2023, 08/15/2022, Additional history exists eGFR 04/25/2025 04/25/2024, 02/09, 02/23/2022 Foot Exam 10/20/2025 10/20/2024, 04/0 04/2023, 02/23/2022, Additional history exists Dilated Eye Exam 02/11/2026 02/12/2024, 07/27/2022 Breast Cancer Screening-Mammogram Discontinued 05/07/2024, 03/13/2023, 03/10/2022, [...] Read Routine (OP Routine) 05/07/2024 10:26 AM NEONATAL INTENSIVE CARE UNIT NURSE Screening mammogram, encounter for EGFR Routine 04/25/2024 1:38 PM NEONATAL INTENSIVE CARE UNIT NURSE Type 2 diabetes mellitus with hyperglycemia, without long-term current use of insulin (HCC) LIPID PANEL Routine 04/25/2024 1:38 PM NEONATAL INTENSIVE CARE UNIT NURSE Type 2 diabetes mellitus with hyperglycemia, without long-term current use of insulin (HCC) ALBUMIN CREATININE RATIO, URINE Routine 04/25/2024 1:38 PM NEONATAL INTENSIVE CARE UNIT NURSE Type 2 diabetes mellitus with hyperglycemia, without long-term current use of insulin (HCC) DIABETES EYE EXAM Routine 02/12/2024 7:56 AM NEONATAL INTENSIVE CARE UNIT NURSE from Last 3 Months or Most Recently Relevant to Health Maintenance Results * (ABNORMAL) POCT hemoglobin A1c (10/20/2024 12:55 PM CDT) Hemoglobin A1C, POC 6.6(A) 4.0 - 5.6 % Capillary blood 10/20/2024 1 2:55 PM CDT us Peg Eisenberg PRACTICE PHYSICIAN POINT OF CARE TEST ORDERA BLES Final Result * (ABNORMAL) POCT glucose (10/20/2024 12:55 PM CDT) Glucose Blood, POC 146 Normal Fasting 70 - 100, Random <200 mg/dL Comment:FBG Blood 10/20/2024 12:5 5 PM CDT us Peg Eisenberg PRACTICE PHYSICIAN POINT OF CARE TEST ORDERA BLES Final Result * Screening Mammogram Bilateral W Reinier (05/07/2024 10:26 AM NEONATAL INTENSIVE CARE UNIT NURSE) Anatomical Region Laterality Modality Breast Bilateral Mammography Narrative 05/09/2024 2:52 PM NEONATAL INTENSIVE CARE UNIT NURSE Examination: Screening Mammogram Bilateral W Reinier: 05/07/24 [...] Result * (ABNORMAL) eGFR (04/25/2024 1:38 PM NEONATAL INTENSIVE CARE UNIT NURSE) eGFR 45(L) >=60 mL/min/1. 73 m2 Comment: [...] last reviewed 2021. Blood 04/25/2024 1:38 PM NEONATAL INTENSIVE CARE UNIT NURSE 04/25/2024 7:20 PM NEONATAL INTENSIVE CARE UNIT NURSE Brigido Collins MD LAB BLOOD ORDERABLES Final Resul t [facility] [address] [place] [address] * Albumin Creatinine Ratio, Urine (04/25/2024 1:38 PM NEONATAL INTENSIVE CARE UNIT NURSE) Albumin Ur <12.0 mg/L Comment: Interpretive Data No reference range established. Current interpretive data was last revised 2018. Creatinine Ur 29.8 mg/dL [facility] Comment: Interpretive Data No reference range established. Current interpretive data was last revised 2018. Albumin Creatinine Ratio, Ur See Comment 1 - 29 [facility] Comment:Unable to calculate Urine 04/25/2024 1:38 PM NEONATAL INTENSIVE CARE UNIT NURSE 04/25/2024 6:22 PM NEONATAL INTENSIVE CARE UNIT NURSE us Brigido Collins MD LAB URINE ORDERABLES Final Resul t [facility] [address] [place] [address] * (ABNORMAL) Lipid panel (04/25/2024 1:38 PM NEONATAL INTENSIVE CARE UNIT NURSE) Cholesterol 147 30 - 199 mg/dL Comment: [...] 5 [facility] Blood 04/25/2024 1:38 PM NEONATAL INTENSIVE CARE UNIT NURSE 04/25/2024 6:22 PM NEONATAL INTENSIVE CARE UNIT NURSE us Brigido Collins MD LAB BLOOD ORDERABLES Final Resul t [facility] [address] [place] [address] * DIABETES EYE EXAM (02/12/2024 7:56 AM NEONATAL INTENSIVE CARE UNIT NURSE) Historical Provider HEALTH MAINTENANCE Edited Result - Final from Last 3 Months or Most Recently Relevant to Health Maintenance Insurance [facility] MEDICARE ADVANTAGE [facility] MEDICARE ADVANTAGE [facility] MEDICARE ADVANTAGE [facility] MEDICARE ADVANTAGE Care Teams Residential Building Inspector Relationship Specialty Start Date End Date Juan Miguel Brown DO PCP - General 02/17/16
--- OUTSIDE RECORDS SUMMARY | 2024-10-31 09:19 | XMS_ITS | Encounter Summary ---
Author Organization [facility] Address [address] [place] [address] Care Team Providers Care Geothermal Sheet Metal Worker Name Role Phone Frankie Holloway MD Unavailable Juan Miguel Brown DO Primary Care Provider Encounter Details Date Type Department Care Team (Late st Contact Info) Description 02/16/2020 Lab Requisition [facility] [address] [place] [address] Dilia Melchor MD [address] [facility] [address] [place] [address] Social History Tobacco Use Types Packs/Day Years [...] Comments DERMATOPATHOLOGY Routine 02/12/2020 12:0 0 AM INSPECTOR OUTSIDE PRODUCTION documented in this encounter Results * DERMATOPATHOLOGY (02/12/2020 12:00 AM INSPECTOR OUTSIDE PRODUCTION) Case Report Dermatopathology Report Case: [id number] Authorizing Provider: Dilia Melchor MD Collected: 02/12/2020 12:00 AM Ordering Location: [facility] Received: 02/16/2020 10:49 AM Pathologist: Heide Wyatt MD Specimens: A) - Skin, left cheek B) - Skin, right ankle 0 4:43 PM INSPECTOR OUTSIDE PRODUCTION DERMATOPATHOLOGY LABORATORY Final Diagnosis Specimen A. SKIN, left cheek: ACTINIC KERATOSIS, LICHENOID (L57.0) Specimen B. SKIN, right ankle: STASIS DERMATITIS (L30.8) DERMAL FIBROSIS (L90.5) 0 4:43 PM INSPECTOR OUTSIDE PRODUCTION DERMATOPATHOLOGY LABORATORY at [address]3 INSPECTOR OUTSIDE PRODUCTION Clinical History A: R/O AK vs SCC. [place] papule. B: R/O DF vs SCC. [place] papule. 0 4:43 PM INSPECTOR OUTSIDE PRODUCTION DERMATOPATHOLOGY LABORATORY Gross Description Specimen A: Received is one formalin filled container labeled with the patient's name and designated left cheek. The specimen consists of a shave measuring [id number]. Jar 0. Specimen B: Received is one formalin filled container labeled with the patient's name and designated right ankle. The specimen consists of a shave measuring [id number]. Jar 0. 0 4:43 PM [facility] DERMATOPATHOLOGY LABORATORY Microscopic Description Specimen A. [...] in the sections examined. 0 4:43 PM [facility] DERMATOPATHOLOGY LABORATORY Disclaimer An external and internal positive and negative controls are appropriate for the histochemical, immunohistochemical and immunofluorescence stain(s) in this case (if any), except where stated explicitly. The performance characteristics of the stain(s) cited in this report were developed and its performance characteristic determined by the Dermatopathology Laboratory at [facility], directed by Dr. Milly Wyatt. These tests need not be, and therefore are not, approved by the [place] Food and Drug Administration. The tests are used for clinical purposes. Billing Codes Specimen Charges Stain Charges 66718 [id number] 1 1 0 4:43 PM INSPECTOR OUTSIDE PRODUCTION DERMATOPATHOLOGY LABORATORY Embedded Images 0 4:43 PM [facility] DERMATOPATHOLOGY LABORATORY Pathology/Cytology TISSUE SPECIMEN FROM SKIN / Unknown 02/12/2020 02/16/2020 10:49 AM INSPECTOR OUTSIDE PRODUCTION Miscellaneous samples (specimen) TISSUE SPECIMEN FROM SKIN / Unknown 02/12/2020 02/16/2020 10:49 AM INSPECTOR OUTSIDE PRODUCTION us Dilia Melchor MD LAB - PATHOLOGY/CYTOLOGY ORD ERABLES Final Result DERMATOPATHOLOGY LABORATORY [facility] - Department of Dermatology [address] [phone] documented in this encounter Visit Diagnoses Not on filedocumented in this encounter Care Teams Geothermal Sheet Metal Worker Relationship Specialty [place] [address] [place] [address] PCP - General Internal Medicine 01/31/13 [place] [address] [place] [address] Orthopedic Surgery 01/31/13 documented as of this encounter
[2024-10-31 13:23] LABS: Add Urine Microscopic? YES; Appearance Urine Clear (Clear); Glucose Urine UA Negative (Negative); Leukocyte Esterase Ur 3+ LEU/UL (Negative); Nitrate Urine Positive (Negative); Non Pathogenic Casts 0-2; Specific Grav Ur 1.018 (1.001-1.035)
== END 2024-10-31 09:17 | disposition home or self-care (01) ==
LOC: ANHGOSHLAB 09:16
PROVIDERS: PCP Internal Medicine; Visit Provider Clinical Nurse Specialist
DX: R30.0 Dysuria (principal)
CPT/HCPCS: 81001

== ENCOUNTER 2025-03-10 11:47 | Outpatient (CLI) | payer MEDICARE, SELFPAY ==
--- NOTE | ~2025-03-10 | XR_ITS ---
EXAMINATION: XR chest 2V 03/10/2025 12:04 INDICATION: Cough PROCEDURE: 2 view chest COMPARISON: 08/10/2022 FINDINGS: The lungs are clear. Status post median sternotomy for CABG. Calcified granuloma left upper thorax. The cardiomediastinal silhouette is within normal limits. There are no pleural effusions. There is no pneumothorax suspected. IMPRESSION: 1: NO ACUTE CARDIOPULMONARY DISEASE. Reviewed, dictated and finalized at location I. CIATE PROFESSOR OF LAW
== END 2025-03-10 11:48 | disposition home or self-care (01) ==
LOC: GOSHIMG 11:47
PROVIDERS: PCP Internal Medicine; Visit Provider Clinical Nurse Specialist
DX: R05.8 Other specified cough (principal); R09.89 Other specified symptoms and signs involving the circulatory and respiratory systems; R53.83 Other fatigue; Z95.2 Presence of prosthetic heart valve
CPT/HCPCS: 71046